=== PATIENT | male | born 1985 | race African-American/Black ===

== ENCOUNTER 2021-09-18 14:10 | Inpatient (IN) | payer SELFPAY ==
[~2021-09-18] VITALS: Ht 175 cm; Wt 149.9 kg
--- NOTE | 2021-09-18 14:52 | ED Dyspnea ---
General Stated Complaint: SOB,CP,HIGH HR Source of Information: Patient Exam Limitations: No Limitations (MARILYN BRAR) History of Present Illness Date Seen by Provider: Sep 18, 2021 Time Seen by Provider: 14:45 Initial Comments Patient is a 35yoM who presents with chief complaint of SOA, abdominal and scrotal swelling. Patient has no past medical history that he knows of but does not see doctors often. He believes he has sleep apnea as he has been told he stops breathing when sleeping. He has been feeling bad for about a week with shortness of breath but denies fever, chills, N/V, diarrhea, melena, hematuria, dysuria headache, sore throat and congestion. Patient has taken Mucinex, Ibuprofen and tried a stool softener which did not help abdominal fullness. Patient is a former smoker and smokes marijuana occasionally. On exam first two wrist BP readings seem unreliable 94/32 then 218/100s. He is tachypneic and O2 sat 96%. Timing/Duration: Constant Severity: Moderate Associated Symptoms: Edema (MARILYN BRAR) Allergies and Home Medications Allergies Coded Allergies: No Known Drug Allergies (Unverified , 09/18/21) Patient Home Medication List Home Medication List Reviewed: Yes (IVA PEREIRA MD) Review of Systems Review of Systems Constitutional: No chills, No diaphoresis, No dizziness, No fever, No malaise EENTM: No blurred vision, No nose congestion, No throat pain Respiratory: No cough; short of breath; No wheezing Cardiovascular: No chest pain; edema; No palpitations, No syncope Gastrointestinal: No abdominal pain, No diarrhea, No melena, No nausea, No vomiting Genitourinary: No dysuria, No frequency, No hematuria Musculoskeletal: No joint pain, No muscle pain Skin: no symptoms reported Psychiatric/Neurological: No Symptoms Reported Endocrine: No Symptoms Reported Hematologic/Lymphatic: No Symptoms Reported (MARILYN BRAR) Past Nfakszh-Kgiwfc-Jeyngv Hx Patient Social History Smoking Status: Former Smoker Substance use?: Yes Substance type: Marijuana Substance frequency: Once in a while Alcohol Use?: No (MARILYN BRAR) Physical Exam Vital Signs Vital Signs - First Documented 09/18/21 14:20 Temp 37.5 Pulse 127 Resp 18 B/P (MAP) 185/132 (149) O2 Delivery Room Air (IVA PEREIRA MD) Vital Signs Capillary Refill : (MARILYN BRAR STUDENT) Height, Weight, BMI Height: '" Weight: lbs. oz. 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0-12.2 fL Immature Granulocyte % (Auto) 1 % Neutrophils (%) (Auto) 75 42-75 % Lymphocytes (%) (Auto) 16 12-44 % Monocytes (%) (Auto) 8 0-12 % Eosinophils (%) (Auto) 0 0-10 % Basophils (%) (Auto) 0 0-10 % Neutrophils # (Auto) 10.9 H 1.8-7.8 X 10^3 Lymphocytes # (Auto) 2.3 1.0-4.0 X 10^3 Monocytes # (Auto) 1.1 H 0.0-1.0 X 10^3 Eosinophils # (Auto) 0.0 0.0-0.3 10^3/uL Basophils # (Auto) 0.0 0.0-0.1 10^3/uL Immature Granulocyte # (Auto) 0.1 0.0-0.1 10^3/uL Neutrophils % (Manual) 87 % Lymphocytes % (Manual) 8 % Monocytes % (Manual) 5 % Eosinophils % (Manual) 0 % Basophils % (Manual) 0 % Band Neutrophils 0 % Polychromasia SLIGHT Hypochromasia MODERATE Anisocytosis MARKED Microcytosis MODERATE Target Cells SLIGHT Prothrombin Time 16.3 H 12.2-14.7 SEC INR Comment 1.3 0.8-1.4 Activated Partial Thromboplast Time 30 24-35 SEC D-Dimer 2.87 H 0.00-0.49 UG/ML Sodium Level 142 135-145 MMOL/L Potassium Level 4.8 3.6-5.0 MMOL/L Chloride Level 107 98-107 MMOL/L Carbon Dioxide Level 19 L 21-32 MMOL/L Anion Gap 16 H 5-14 MMOL/L Blood Urea Nitrogen 28 H 7-18 MG/DL Creatinine 2.11 H 0.60-1.30 MG/DL Estimat Glomerular Filtration Rate 41 BUN/Creatinine Ratio 13 Glucose Level 101 70-105 MG/DL Calcium Level 9.4 8.5-10.1 MG/DL Corrected Calcium 9.7 8.5-10.1 MG/DL Total Bilirubin 0.8 0.1-1.0 MG/DL Aspartate Amino Transf (AST/SGOT) 275 H 5-34 U/L Alanine Aminotransferase (ALT/SGPT) 252 H 0-55 U/L Alkaline Phosphatase 122 40-136 U/L Total Creatine Kinase 391 H 30-200 U/L Troponin I 0.113 H <0.028 NG/ML B-Type Natriuretic Peptide 694.2 H <100.0 PG/ML Total Protein 7.2 6.4-8.2 GM/DL Albumin 3.6 3.2-4.5 GM/DL Procalcitonin 0.40 H <0.10 NG/ML Glucometer 82 70-110 MG/DL (IVA PEREIRA MD) My Orders Orders - IVA PEREIRA MD Ed Iv/Invasive Line Start (09/18/21 15:00) Cbc With Automated Diff (09/18/21 15:00) Comprehensive Metabolic Panel (09/18/21 15:00) Ekg Tracing (09/18/21 15:00) Ua Culture If Indicated (09/18/21 15:00) Bnp Иван (09/18/21 15:00) Troponin I Иван (09/18/21 15:00) Creatine Kinase (09/18/21 15:00) Chest Pa/Lat (2 View) (09/18/21 15:00) Accucheck Stat ONCE (09/18/21 15:00) Manual Differential (09/18/21 14:35) Nitroglycerin Ointment (Nitrobid Ointme (09/18/21 15:30) Aspirin Chewable Tablet (Baby Aspirin Ch (09/18/21 16:00) Protime With Inr (09/18/21 16:06) Partial Thromboplastin Time (09/18/21 16:06) Fibrin Degradation Products (09/18/21 16:06) Ns (Ivpb) (Sodium C... W/Nicardipine Iv (09/18/21 16:15) Enoxaparin Injection (Lovenox Injectio (09/18/21 16:15) (IVA PEREIRA MD) Medications Given in ED (IVA PEREIRA MD) Vital Signs/I&O 09/18/21 14:20 Temp 37.5 Pulse 127 Resp 18 B/P (MAP) 185/132 (149) O2 Delivery Room Air (IVA PEREIRA MD) Progress Progress Note : Time: 16:34 Progress Note 35-year-old obese -[place] male presents with a chief complaint of shortness of breath, swelling over the last week and a half. Patient is basically undoctored. He cannot recall the last time he saw physician, potentially 3 years ago. No prior diagnoses. Denies chest pain, fever, congestion. States he has been having significant amount of difficulty sleeping secondary to his worsening shortness of breath. Became more concerned over the last 24 hours as he has experienced a significant amount of scrotal swelling. States he still able to urinate. Denies headache, diarrhea. Former smoker. Tells me that his girlfriend thinks that he has sleep apnea as she will wake him up frequently when he "stops breathing" at night. Physical exam remarkable for morbid obesity, pitting edema that is generalized, massive scrotal swelling. Somewhat labored breathing. Significant hypertension on a wrist cuff on the left arm 180s over 130s tachycardia in the high 120s; normal oxygen saturations. Heart is regular, lungs are clear although diminished. Nontender abdomen 3+ edema in the bilateral lower extremities. Patient is noted to have acute kidney injury with a serum creatinine of 2.1. El evated troponin, elevated BNP. Chest x-ray shows cardiomegaly without overt pulmonary edema. 1 inch of Nitropaste was placed to the chest wall. Case is discussed with Dr. Burrows on for the hospitalist service. Recommends 40 mg of Lasix, Cardene drip, echo in the morning. I also discussed the case with Dr. Reyes who recommends Lovenox weight-based dosing twice daily daily aspirin adding a D-dimer. Will admit to ICU on a Cardene drip, titrate to systolic blood pressure of 140. (IVA PEREIRA MD) Initial ECG Impression Date: Sep 18, 2021 Initial ECG Impression Time: 15:34 Initial ECG Rhythm: S.Tach Initial ECG Impression: Nonspecific Changes Initial ECG Comparisson: No Previous ECG Available (IVA PEREIRA MD) Diagnostic Imaging Diagonstic Imaging: Xray Plain Films/CT/US/NM/MRI: chest Comments [facility]. [place], [place] NAME: CLAYTON MCKEON [facility] REC#: [id number] PT STATUS: REG ER : 1985 PHYSICIAN: VIA PEREIRA MD ADMIT DATE: 09/18/21/ER Signed Date of Exam:09/18/21 CHEST PA/LAT (2 VIEW) INDICATION: Shortness of breath and leg swelling. PA and lateral chest obtained at 3:50 p.m. FINDINGS: There is prominent cardiomegaly. Mediastinal silhouette is unremarkable. There is central vascular congestion. There is no pneumothorax or pleural fluid or focal infiltrate. IMPRESSION: Cardiomegaly and central vascular congestion. No focal infiltrate or pleural fluid. Dictated by: Dictated on workstation # [id number] Dict: 09/18/21 1600 Trans: 09/18/21 1627 [id number] Interpreted by: NADEEN SOGN MD Electronically signed by: NADEEN SONG MD 09/18/21 1627 (IVA PEREIRA MD) Critical Care Note Critical Care Start Time: 14:45 Stop Time: 16:37 Total Time (minutes) 30 minutes critical care time in the evaluation and management of this 35-year-old gentleman with hypertensive emergency. Time involved includes initial evaluation, review and interpretation of laboratory studies, EKG and chest x-ray. Discussion with hospitalist and cardiology services. Management of hypertension. (IVA PEREIRA MD) Departure Communication (Admissions) Time/Spoke to Admitting Phy: 15:[address] Burrows Time/Spoke to Consulting Phy: 16:[address] Reyes (IVA PEREIRA MD) Impression Primary Impression: Hypertensive emergency Additional Impressions: Acute kidney injury Elevated troponin Anasarca Morbid obesity Disposition: ADMITTED INPATIENT Condition: Critical Admissions Decision to Admit Reason: Admit from ER (General) Decision to Admit/Date: Sep 18, 2021 Time/Decision to Admit Time: 16:33 (IVA PEREIRA MD) Departure-Patient Inst. Referrals: NO,LOCAL PHYSICIAN (PCP/Family) Primary Care Physician Verification and Attestation of Medical Student E/M Service A medical student performed and documented this service in my presence. I reviewed and verified all information documented by the medical student and made modifications to such information, when appropriate. I personally performed the physical exam and medical decision making. Iva Pereira, Sep 19, 2021,06:53 (IVA PEREIRA MD) MARILYN BRAR MED STUDENT Sep 18, 2021 14:52 IVA PEREIRA MD Sep 18, 2021 15:00
[2021-09-18 15:17] LABS: BASOPHILS % (AUTO) 0 % (0-10); EOSINOPHILS % (AUTO) 0 % (0-10); HEMATOCRIT 43 % (40-54); HEMOGLOBIN 12.8 g/dL (13.3-17.7); LYMPHOCYTES # (AUTO) 2.3 X 10^3 (1.0-4.0); LYMPHOCYTES % (AUTO) 16 % (12-44); MEAN CORPUSCULAR HEMOGLOBIN 21 pg (25-34); MEAN CORPUSCULAR HGB CONC 30 g/dL (32-36); MEAN CORPUSCULAR VOLUME 69 fL (80-99); MEAN PLATELET VOLUME 9.7 fL (9.0-12.2); MONOCYTES # (AUTO) 1.1 X 10^3 (0.0-1.0); MONOCYTES % (AUTO) 8 % (0-12); NEUTROPHILS # (AUTO) 10.9 X 10^3 (1.8-7.8); NEUTROPHILS % (AUTO) 75 % (42-75); PLATELET COUNT 580 10^3/uL (130-400); WHITE BLOOD COUNT 14.4 10^3/uL (4.3-11.0)
[2021-09-18 15:20] LABS: ALBUMIN 3.6 GM/DL (3.2-4.5); POTASSIUM 4.8 MMOL/L (3.6-5.0)
[2021-09-18 15:21] LABS: CALCIUM 9.4 MG/DL (8.5-10.1)
[2021-09-18 15:22] LABS: TOTAL PROTEIN 7.2 GM/DL (6.4-8.2)
[2021-09-18 15:24] LABS: BILIRUBIN,TOTAL 0.8 MG/DL (0.1-1.0)
[2021-09-18 15:26] LABS: CREATININE SERUM 2.11 MG/DL (0.60-1.30)
[2021-09-18] MEDS ORDERED: NITROGLYCERIN 2% OINT 1 GM UNIT DOSE PACKET TOP ONE (15:30)
[2021-09-18 15:37] LABS: ANISOCYTOSIS MARKED; BAND NEUTROPHILS 0 %; BASOPHILS % (MANUAL) 0 %; EOSINOPHILS % (MANUAL) 0 %; HYPOCHROMASIA MODERATE; LYMPHOCYTES % (MANUAL) 8 %; MICROCYTOSIS MODERATE; MONOCYTES % (MANUAL) 5 %; NEUTROPHILS % (MANUAL) 87 %; POLYCHROMASIA SLIGHT; TARGET CELLS SLIGHT
[2021-09-18] MEDS ORDERED: ASPIRIN 81 MG CHEW (CHILDREN'S ASA) PO ONE (16:00)
--- NOTE | 2021-09-18 16:03 | Diagnostic Imaging Report ---
INDICATION: Shortness of breath and leg swelling. PA and lateral chest obtained at 3:50 p.m. FINDINGS: There is prominent cardiomegaly. Mediastinal silhouette is unremarkable. There is central vascular congestion. There is no pneumothorax or pleural fluid or focal infiltrate. IMPRESSION: Cardiomegaly and central vascular congestion. No focal infiltrate or pleural fluid. Dictated by: Dictated on workstation # [id number]
[2021-09-18] MEDS ORDERED: niCARdipine IV 50 MG in NS (IVPB) 230 ML IV SCH (16:15)
[2021-09-18] MEDS ORDERED: ENOXAPARIN 60 MG/0.6 ML (LOVENOX) SYR SC ONE (16:15)
[2021-09-18 16:23] LABS: FIBRIN DEGRADATION PRODUCTS 2.87 UG/ML (0.00-0.49); INR 1.3 (0.8-1.4); PROTHROMBIN TIME PATIENT 16.3 SEC (12.2-14.7)
[2021-09-18] MEDS ORDERED: FUROSEMIDE 40 MG/4 ML INJ (LASIX) IVP ONE (16:45)
[2021-09-18 17:31] LABS: BILIRUBIN,URINE NEGATIVE (NEGATIVE); CLARITY,URINE CLEAR; COLOR,URINE YELLOW; GLUCOSE, URINE (UA) NEGATIVE (NEGATIVE); KETONES,URINE NEGATIVE (NEGATIVE); LEUKOCYTE ESTERASE ,URINE NEGATIVE (NEGATIVE); NITRITE,URINE NEGATIVE (NEGATIVE); PROTEIN,URINE 2+ (NEGATIVE)
[2021-09-18 17:51] LABS: BACTERIA,URINE NEGATIVE /HPF; HYALINE CASTS, URINE 0-2 /LPF; RBC,URINE 0-2 /HPF; SQUAMOUS EPITHELIAL CELL,UR 0-2 /HPF
--- NOTE | 2021-09-18 18:41 | Tele-ICU Consult ---
History of Present Illness History of Present Illness Date Seen by Provider: Sep 18, 2021 Time Seen by Provider: 18:41 Date of Admission Allergies and Home Medications Allergies Coded Allergies: No Known Drug Allergies (Unverified , 09/18/21) Past Medical/Social/Family Hx Patient Social History Tobacco Use?: No Smoking Status: Former Smoker Smokeless Tobacco Frequency: Never a User Use of E-Cig and/or Vaping dev: No E-Cig and/or Vaping Freq: Never a User Substance use?: Yes Substance type: Marijuana Substance frequency: Once in a while Alcohol Use?: No Pt stated abuse/neglect: No Immunizations Up To Date Influenza Vaccine Up-to-Date: No; Not Current Tetanus Booster (TDap): Unknown Current Status Advance Directives: No Communicates: Does Not Communicate Primary Language: Polish Preferred Spoken Language: Polish Is interpretation needed?: No Implanted or Applied Medical D: None Review of Systems Constitutional: see HPI Focused Exam Height, Weight, BMI Height: '" Weight: lbs. oz. kg; 56.16 BMI Method: Exam Exam Patient acknowledged, consented, and participated in this virtual visit which was conducted using real time audio/video Vital Signs Date Time Temp Pulse Resp B/P (MAP) Pulse Ox O2 Delivery O2 Flow Rate FiO2 09/18/21 18:15 121 46 205/137 95 Room Air 09/18/21 18:00 118 9 174/149 98 Room Air 09/18/21 17:46 99 Room Air 09/18/21 17:45 121 09/18/21 17:45 121 25 157/108 95 Room Air 09/18/21 17:30 122 18 192/121 98 Room Air 09/18/21 14:20 37.5 127 18 185/132 (149) Room Air Height & Weight Height: '" Weight: lbs. oz. 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 ROS as per chart and RN report Now in ICU, hemodynamically stable Video assessment done using teleICU camera, rest of exam as per RN Discussed with RN. Consultants: linda Hospital course: - adnitted with scrotal edema , anasarca A/P CHUY, Cr 2.1 - voiding , good UO -lasix given - follow HTN - cardene gtt - ECHO pending Elev d-dimer - check US LE - lovenoc full dose given scrotal swelling - as per RN exam - no cellulitis, WBC 14 - check PCT Elevated LFT - ? liver congestion Lines : (Central Line Necessity Reviewed) Will: OG: Nutrition: Analgesia: Anxiety/ delirium VTE Prophylaxis: juan carlos full dose Stress Ulcer Prophylaxis: Plans in collaboration with bedside consultants and IM MDs. Discussed with RN to reach out if any questions or concerns A total of 31 minutes of critical care time was devoted to this patient today, required to treat and/or prevent further deterioration of critical care condition ( as above ) THOMAS FERRARI MD Sep 18, 2021 18:41
[2021-09-18 18:42] LABS: BILIRUBIN,URINE NEGATIVE (NEGATIVE); CLARITY,URINE CLEAR; COLOR,URINE YELLOW; GLUCOSE, URINE (UA) NEGATIVE (NEGATIVE); KETONES,URINE NEGATIVE (NEGATIVE); LEUKOCYTE ESTERASE ,URINE NEGATIVE (NEGATIVE); NITRITE,URINE NEGATIVE (NEGATIVE); PH,URINE 5.5 (5-9); PROTEIN,URINE TRACE (NEGATIVE)
[2021-09-18 18:51] LABS: BACTERIA,URINE NEGATIVE /HPF; RBC,URINE RARE /HPF; SQUAMOUS EPITHELIAL CELL,UR RARE /HPF
[2021-09-18] MEDS: niCARdipine 50 MG/NS 250 ML IV DRIP IV SCH ×6 (18:52→22:28)
[2021-09-18 18:57] LABS: AMPHETAMINE SCREEN, URINE NEGATIVE (NEGATIVE); BARBITURATE SCREEN URINE NEGATIVE (NEGATIVE); BENZODIAZEPINES SCREEN URINE NEGATIVE (NEGATIVE); CANNABINOID SCREEN, URINE NEGATIVE (NEGATIVE); COCAINE SCREEN URINE NEGATIVE (NEGATIVE); METHADONE STAT NEGATIVE (NEGATIVE); METHAMPHETAMINE SCREEN URINE S POSITIVE (NEGATIVE); OPIATE SCREEN URINE NEGATIVE (NEGATIVE); OXYCODONE STAT NEGATIVE (NEGATIVE); PROPOXYPHENE STAT NEGATIVE (NEGATIVE); TRICYCLIC ANTIDEPRESSANTS SCRE NEGATIVE (NEGATIVE)
[2021-09-18] MEDS ORDERED: RT-ALBUTEROL SULF 2.5 MG/3 ML PRE-MIX VIAL INH PRN (20:00)
[2021-09-19] MEDS ORDERED: niCARdipine IV FOR DRIP 50 MG KIT ONE (01:57)
[2021-09-19] MEDS ORDERED: NS (IVPB) 250 ML ONE (02:00)
[2021-09-19] MEDS: niCARdipine 50 MG/NS 250 ML IV DRIP IV SCH ×4 (02:33→11:31)
[2021-09-19] MEDS: ENOXAPARIN 150 MG/ML (LOVENOX) SYR SQ SCH ×2 (04:29→18:17)
[2021-09-19] MEDS: POTASSIUM CL 10MEQ/50ML IVPB 50 ML IV SCH (06:00)
[2021-09-19] MEDS: MAGNESIUM 1 GM/100 ML IVPB 100 ML IV SCH (06:00)
[2021-09-19] MEDS: KCL 20 MEQ TAB (K-DUR) PO SCH (06:00)
[2021-09-19 06:35] LABS: BASOPHILS # (AUTO) 0.1 10^3/uL (0.0-0.1); BASOPHILS % (AUTO) 1 % (0-10); EOSINOPHILS # (AUTO) 0.1 10^3/uL (0.0-0.3); EOSINOPHILS % (AUTO) 1 % (0-10); HEMATOCRIT 39 % (40-54); HEMOGLOBIN 11.6 g/dL (13.3-17.7); LYMPHOCYTES # (AUTO) 1.9 10^3/uL (1.0-4.0); LYMPHOCYTES % (AUTO) 14 % (12-44); MEAN CORPUSCULAR HEMOGLOBIN 20 pg (25-34); MEAN CORPUSCULAR HGB CONC 30 g/dL (32-36); MEAN CORPUSCULAR VOLUME 68 fL (80-99); MEAN PLATELET VOLUME 9.8 fL (9.0-12.2); MONOCYTES # (AUTO) 1.5 10^3/uL (0.0-1.0); MONOCYTES % (AUTO) 10 % (0-12); NEUTROPHILS # (AUTO) 10.4 10^3/uL (1.8-7.8); NEUTROPHILS % (AUTO) 74 % (42-75); PLATELET COUNT 563 10^3/uL (130-400); WHITE BLOOD COUNT 14.1 10^3/uL (4.3-11.0)
[2021-09-19 06:57] LABS: ALBUMIN 3.3 GM/DL (3.2-4.5); BILIRUBIN,TOTAL 0.6 MG/DL (0.1-1.0); CALCIUM 8.9 MG/DL (8.5-10.1); CREATININE SERUM 2.45 MG/DL (0.60-1.30); PHOSPHORUS 4.6 MG/DL (2.3-4.7); POTASSIUM 4.9 MMOL/L (3.6-5.0); TOTAL PROTEIN 6.6 GM/DL (6.4-8.2)
[2021-09-19] MEDS ORDERED: hydrALAZINE (APESOLINE) 20 MG/ML VIAL IV PRN (08:15)
[2021-09-19 08:41] LABS: ABG BASE EXCESS -1.7 MMOL/L (-2.5-2.5); ABG OXYGEN SATURATION 90 % (94-100); ABG PCO2 59 MMHG (35-45); ABG PO2 62 MMHG (79-93); ABG TCO2 26.8 MMOL/L (21.0-31.0)
[2021-09-19 08:42] LABS: ABG PH 7.24 (7.37-7.43); ALLENS TEST POSITIVE; INSPIRED O2 7 L; PATIENT TEMP 36; VENTILATOR NO
[2021-09-19] MEDS ORDERED: amLODIPine 5 MG (NORVASC) TAB PO SCH (09:00)
[2021-09-19 09:07] VITALS: BP 127/70
--- NOTE | 2021-09-19 09:39 | Consultation-Cardiology ---
HPI-Cardiology Cardiology Consultation: Date of Consultation 09/19/2021 Date of Admission 09/18/2021 Attending Physician Analia Burrows MD Admitting Physician No,Local Physician Consulting Physician JAH CANNON JR, MD HPI: Time Seen by a Provider: 09:34 Chief Complaint: Reason for consultation: Hypertensive emergency and abnormal troponin level. I had the pleasure of seeing Quan in the intensive care unit at [facility] in [place], [place] this morning. According to him, he has no significant past medical history other than morbid obesity and does not take any pres cription medications at home. Over the past several days, he has noticed increasing dyspnea on exertion as well as peripheral edema. Due to ongoing and worsening symptoms, he had his girlfriend bring him to the emergency room yesterday. He was found to have a markedly elevated blood pressure and was started on intravenous nicardipine infusion. During his evaluation, he was also found to have acute kidney injury and elevated troponin levels and a cardiology consultation was requested. When I saw the patient, he was breathing comfortably on BiPAP. He states that his breathing is starting to feel better but he still has persistent edema. He denies chest discomfort, paroxysmal nocturnal dyspnea, orthopnea, palpitations, lightheadedness, or syncope. Certain portions of this document may have been dictated utilizing voice recognition technology. Inherent to this technology, typographical and grammatical errors may exist. As much as I am diligent to identify and correct these mistakes, some errors may remain in the document. Review of Systems-Cardiology Review of Systems Other comments Review of 10 organ systems is as per the history of present illness, otherwise negative. [id number] Hx Patient Social History Smoking Status: Former Smoker Have you traveled recently?: No Alcohol Use?: No Substance type: Marijuana Pt feels they are or have been: No Past Medical History PMH As described under Assessment. Family Medical History Family Medical History: The patient does not know of any family history of premature coronary artery disease in first-degree relatives. He believes diabetes runs in his family. Allergies and Home Medications Allergies Coded Allergies: No Known Drug Allergies (Unverified , 09/18/21) Patient Home Medication List Home Medication List Reviewed: Yes Exam Vital Signs Vital Signs Date Time Temp Pulse Resp B/P (MAP) Pulse Ox O2 Delivery O2 Flow Rate FiO2 09/19/21 15:00 99 34 87/61 94 NIV Bilevel 45.00 09/19/21 12:00 45 09/19/21 04:00 36.3 Physical Exam General: Alert. No acute distress. He is on BiPAP. Well nourished and appears stated age. He is morbidly obese. Eye: Extraocular movements are intact. Conjunctivae are clear. There are no xanthelasma. HENT: Normocephalic. Atraumatic. Carotid pulsations 2/2 without bruits. Neck: Jugular venous pressure does not appear elevated. No thyromegaly appreciated. Respiratory: Lungs have some upper airway sounds due to BiPAP. Respirations are non-labored. Breath sounds are equal. Symmetrical chest wall expansion. Cardiovascular: Normal rate. Regular rhythm. No murmur. No gallop. Point of maximal impulse is not appear displaced. Good pulses equal in all extremities. 3+ bilateral pretibial edema. Gastrointestinal: Soft. Normal bowel sounds. Skin: Skin turgor is normal. There is no pallor. Musculoskeletal: No kyphosis or scoliosis appreciated. Neurologic: Alert and oriented to person, place, time. Cranial nerves 3-12 appear grossly intact. The patient has good motor tone strength in the upper and lower extremities bilaterally. Psychiatric: Cooperative. Appropriate mood & affect. Labs Laboratory Tests Test 09/18/21 15:46 09/18/21 17:26 09/18/21 18:20 09/18/21 21:04 Range/Units Glucometer 82 70-110 MG/DL Urine Color YELLOW YELLOW Urine Clarity CLEAR CLEAR Urine pH 6.0 5.5 5-9 Urine Specific Hardy >=1.030 1.010 L 1.016-1.022 Urine Protein 2+ H TRACE H NEGATIVE Urine Glucose (UA) NEGATIVE NEGATIVE NEGATIVE Urine Ketones NEGATIVE NEGATIVE NEGATIVE Urine Nitrite NEGATIVE NEGATIVE NEGATIVE Urine Bilirubin NEGATIVE NEGATIVE NEGATIVE Urine Urobilinogen 0.2 0.2 < = 1.0 MG/DL Urine Leukocyte Esterase NEGATIVE NEGATIVE NEGATIVE Urine RBC (Auto) 1+ H TRACE-I H NEGATIVE Urine RBC 0-2 RARE /HPF Urine WBC NONE NONE /HPF Urine Squamous Epithelial Cells 0-2 RARE /HPF Urine Crystals NONE NONE /LPF Urine Bacteria NEGATIVE NEGATIVE /HPF Urine Casts PRESENT NONE /LPF Urine Hyaline Casts 0-2 H /LPF Urine Mucus NEGATIVE NEGATIVE /LPF Urine Culture Indicated NO NO Urine Opiates Screen NEGATIVE NEGATIVE Urine Oxycodone Screen NEGATIVE NEGATIVE Urine Methadone Screen NEGATIVE NEGATIVE Urine Propoxyphene Screen NEGATIVE NEGATIVE Urine Barbiturates Screen NEGATIVE NEGATIVE Ur Tricyclic Antidepressants Screen NEGATIVE NEGATIVE Urine Phencyclidine Screen NEGATIVE NEGATIVE Urine Amphetamines Screen NEGATIVE NEGATIVE Urine Methamphetamines Screen POSITIVE H NEGATIVE Urine Benzodiazepines Screen NEGATIVE NEGATIVE Urine Cocaine Screen NEGATIVE NEGATIVE Urine Cannabinoids Screen NEGATIVE NEGATIVE Troponin I 0.186 H <0.028 NG/ML Test 09/19/21 06:20 09/19/21 08:30 09/19/21 12:55 Range/Units White Blood Count 14.1 H 4.3-11.0 10^3/uL Red Blood Count 5.69 H 4.30-5.52 10^6/uL Hemoglobin 11.6 L 13.3-17.7 g/dL Hematocrit 39 L 40-54 % Mean Corpuscular Volume 68 L 80-99 fL Mean Corpuscular Hemoglobin 20 L 25-34 pg Mean Corpuscular Hemoglobin Concent 30 L 32-36 g/dL Red Cell Distribution Width 17.2 H 10.0-14.5 % Platelet Count 563 H 130-400 10^3/uL Mean Platelet Volume 9.8 9.0-12.2 fL Immature Granulocyte % (Auto) 1 % Neutrophils (%) (Auto) 74 42-75 % Lymphocytes (%) (Auto) 14 12-44 % Monocytes (%) (Auto) 10 0-12 % Eosinophils (%) (Auto) 1 0-10 % Basophils (%) (Auto) 1 0-10 % Neutrophils # (Auto) 10.4 H 1.8-7.8 10^3/uL Lymphocytes # (Auto) 1.9 1.0-4.0 10^3/uL Monocytes # (Auto) 1.5 H 0.0-1.0 10^3/uL Eosinophils # (Auto) 0.1 0.0-0.3 10^3/uL Basophils # (Auto) 0.1 0.0-0.1 10^3/uL Immature Granulocyte # (Auto) 0.1 0.0-0.1 10^3/uL Sodium Level 139 135-145 MMOL/L Potassium Level 4.9 3.6-5.0 MMOL/L Chloride Level 108 H 98-107 MMOL/L Carbon Dioxide Level 21 21-32 MMOL/L Anion Gap 10 5-14 MMOL/L Blood Urea Nitrogen 33 H 7-18 MG/DL Creatinine 2.45 H 0.60-1.30 MG/DL Estimat Glomerular Filtration Rate 34 BUN/Creatinine Ratio 13 Glucose Level 147 H 70-105 MG/DL Calcium Level 8.9 8.5-10.1 MG/DL Corrected Calcium 9.5 8.5-10.1 MG/DL Phosphorus Level 4.6 2.3-4.7 MG/DL Magnesium Level 2.0 1.6-2.4 MG/DL Total Bilirubin 0.6 0.1-1.0 MG/DL Aspartate Amino Transf (AST/SGOT) 183 H 5-34 U/L Alanine Aminotransferase (ALT/SGPT) 247 H 0-55 U/L Alkaline Phosphatase 114 40-136 U/L Troponin I 0.200 H <0.028 NG/ML Total Protein 6.6 6.4-8.2 GM/DL Albumin 3.3 3.2-4.5 GM/DL Triglycerides Level 83 <150 MG/DL Cholesterol Level 133 < 200 MG/DL LDL Cholesterol Direct 95 1-129 MG/DL VLDL Cholesterol 17 5-40 MG/DL HDL Cholesterol 27 L 40-60 MG/DL Blood Gas Puncture Site RIGHT RADIAL Blood Gas Patient Temperature 36 Arterial Blood pH 7.24 *L 7.37-7.43 Arterial Blood Partial Pressure CO2 59 H 35-45 MMHG Arterial Blood Partial Pressure O2 62 L 79-93 MMHG Arterial Blood HCO3 25 23-27 MMOL/L Arterial Blood Total CO2 26.8 21.0-31.0 MMOL/L Arterial Blood Oxygen Saturation 90 L 94-100 % Arterial Blood Base Excess -1.7 -2.5-2.5 MMOL/L Onel Test POSITIVE Blood Gas Ventilator Setting NO Blood Gas Inspired Oxygen 7 L Influenza Type A (RT-PCR) Not Detected Not Detecte Influenza Type B (RT-PCR) Not Detected Not Detecte SARS-CoV-2 RNA (RT-PCR) Not Detected Not Detecte Radiology ECHOCARDIOGRAM (09/19/2021): 1. This is a technically difficult study due to poor image quality secondary to patient's body habitus. Intravenous contrast was administered to enhance image quality. 2. Left ventricle: The cavity size is normal. There is mild concentric hypertrophy. Systolic function is severely reduced. The estimated ejection fraction is 20-25%. There is global hypokinesis. Left ventricular diastolic function parameters are normal. 3. Right atrium: The right atrium is mildly dilated with an area of 23 cm. 4. Inferior vena cava: The vessel is dilated. The respirophasic diameter changes are blunted (less than 50%). These findings are consistent with markedly elevated right atrial pressure (15 mmHg). 5. Pulmonary arteries: The estimated pulmonary artery systolic pressure is 37 mmHg assuming a right atrial pressure of 15 mmHg. ECG Impression ECG Comment Electrocardiogram from 09/18 shows sinus tachycardia at 120 bpm with left atrial abnormality, poor R wave progression and nonspecific T wave changes. Diagnosis/Problems Diagnosis/Problems (1) Hypertensive emergency Status: Acute Assessment & Plan: He had markedly elevated blood pressures with evidence of acute heart failure. His blood pressures have improved with nicardipine infusion. We will attempt to transition this over to oral medication. He had been written for amlodipine but given the newly discovered severe left ventricular systolic dysfunction, I recommend he be on beta-augusto with the combination of hydralazine and nitrates. Hopefully, we can get him off BiPAP long enough to swallow pills. He is not a good candidate for any medication that could further impair his renal function such as NORRIS inhibitor, ARB, or aldosterone antagonists. (2) Elevated troponin Assessment & Plan: This was probably a type II non-ST elevation myocardial infarction due to supply/demand mismatch related to the hypertensive emergency on top of heart failure. (3) Cardiomyopathy Assessment & Plan: His echocardiogram shows severe left ventricular systolic dysfunction with an estimated ejection fraction of 20-25%. Exact etiology unclear. He has been ordered for carvedilol. As above, I will stop the amlodipine which was ordered and change this over to hydralazine and nitrates. He is not a good candidate for NORRIS inhibitor, ARB, or aldosterone antagonist due to his acute kidney injury. We can reassess if his renal function improves. At some point, we may need to consider further evaluation with a cardiac catheterization to exclude coronary artery disease as a possible etiology of the cardiomyopathy. However, we need to wait for his renal function to improve before giving him intravenous contrast. (4) Acute HFrEF (heart failure with reduced ejection fraction) Assessment & Plan: His chest x-ray showed pulmonary congestion and he is short of breath. He was given 1 dose of intravenous furosemide in the emergency room. I will give him another dose of intravenous furosemide this morning. We will need to be cautious with diuretics due to his acute kidney injury. I have also made adjustments to the antihypertensive regimen as outlined above. (5) Acute kidney injury Status: Acute Assessment & Plan: This will need to be monitored closely. We do not know his baseline renal function because he does not normally go to doctors. (6) Morbid obesity Status: Acute Assessment & Plan: He needs to work on weight loss. If he cannot lose a significant amount of weight over the next 6-12 months, I would consider refe rring him for bariatric consultation at that time. JAH CANNON JR, MD Sep 19, 2021 09:39
[2021-09-19] MEDS ORDERED: FUROSEMIDE 40 MG/4 ML INJ (LASIX) IVP ONE (09:45)
[2021-09-19] MEDS ORDERED: ISOSORBIDE MONONITRATE 60 MG (IMDUR) TAB PO ONE (09:45)
--- NOTE | 2021-09-19 10:23 | Tele-ICU Progress Note ---
Subjective Date Seen by a Provider: Sep 19, 2021 Time Seen by a Provider: 10:23 Sepsis Event Evaluation Height, Weight, BMI Height: '" Weight: lbs. oz. kg; 56.16 BMI Method: Exam Exam Patient acknowledged, consented, and participated in this virtual visit which was conducted using real time audio/video Vital Signs Date Time Temp Pulse Resp B/P (MAP) Pulse Ox O2 Delivery O2 Flow Rate FiO2 09/19/21 10:00 103 34 127/89 95 Nasal Cannula 6.00 09/19/21 09:07 103 40 100 45.00 09/19/21 09:00 100 23 127/70 100 Nasal Cannula 6.00 09/19/21 08:00 98 33 121/75 91 Nasal Cannula 6.00 09/19/21 07:00 96 09/19/21 07:00 108 44 108/51 96 Nasal Cannula 6.00 09/19/21 06:45 115 145/80 91 Nasal Cannula 6.00 09/19/21 05:15 112 35 139/72 98 Nasal Cannula 6.00 09/19/21 04:00 98 33 157/88 95 Nasal Cannula 6.00 09/19/21 04:00 36.3 09/19/21 04:00 96 Nasal Cannula 6.00 09/19/21 03:00 111 36 120/68 92 Nasal Cannula 6.00 09/19/21 02:30 113 15 122/72 95 Nasal Cannula 6.00 09/19/21 01:00 103 141/74 94 Nasal Cannula 6.00 09/19/21 01:00 103 09/19/21 00:00 36.5 09/19/21 00:00 114 148/85 95 Nasal Cannula 6.00 09/18/21 23:59 96 Nasal Cannula 6.00 09/18/21 23:00 117 33 161/98 89 Nasal Cannula 6.00 09/18/21 22:40 Nasal Cannula 6.00 09/18/21 22:34 100 Nasal Cannula 7.00 09/18/21 22:30 114 17 148/99 99 Nasal Cannula 4.00 09/18/21 22:00 112 39 186/80 100 Nasal Cannula 2.00 09/18/21 21:12 Nasal Cannula 2.00 09/18/21 21:00 113 38 168/97 93 Room Air 09/18/21 20:00 109 185/139 92 Room Air 09/18/21 20:00 95 Room Air 09/18/21 19:45 124 34 180/140 94 Room Air 09/18/21 19:30 106 182/140 97 Room Air 09/18/21 19:15 121 29 187/146 94 Room Air 09/18/21 19:00 116 09/18/21 19:00 116 15 178/125 94 Room Air 09/18/21 18:15 121 46 205/137 95 Room Air 09/18/21 18:00 118 9 174/149 98 Room Air 09/18/21 17:46 99 Room Air 09/18/21 17:45 121 09/18/21 17:45 121 25 157/108 95 Room Air 09/18/21 17:30 122 18 192/121 98 Room Air 09/18/21 14:20 37.5 127 18 185/132 (149) Room Air I & O 09/19/21 07:00 Intake Total 800 ml Output Total 1500 ml Balance -700 ml Height & Weight Height: '" Weight: lbs. oz. kg; 56.16 BMI Method: General Appearance: No Apparent Distress, Obese HEENT: PERRL/EOMI, Pharynx Normal, Moist Mucous Membranes Neck: Full Range of Motion, Normal Inspection, Non Tender, Supple Respiratory: Chest Non Tender, No Accessory Muscle Use, No Respiratory Distress, Decreased Breath Sounds Cardiovascular: No JVD, Normal Peripheral Pulses, Tachycardia Capillary Refill: Less Than 3 Seconds Extremity: Non Tender, Pedal Edema, Swelling Neurologic/Psychiatric: Alert, Oriented x3, No Motor/Sensory Deficits, Normal Mood/Affect, accountant systems II-XII Norm as Tested Skin: Normal Color, Warm/Dry Lymphatic: No Adenopathy Results Lab Laboratory Tests 09/18/21 14:35 09/19/21 06:20 Assessment/Plan Assessment/Plan Tele-ICU Physician , Progress Note ) Available chart/ vitals / labs / Images reviewed Video assessment done using teleICU camera, rest of exam as per RN Discussed with RN , EXAM PER RN Events overnight : Afebrile FiO2 - I/O = Drips: nicardipine Pressors: , hemodynamically stable Consultants: linda Hospital course: - adnitted with scrotal edema , anasarca 09/19 - TITO - > BIPAP A/P Acute hypercarbic resp failure - inderlying TITO / [facility] - Bipap , follow abg , need outpatient sleep study and NIPPV CHUY, Cr 2.1-> wortsenign with diuresis to 2.4 09/19 - voiding , good UO -lasix given - follow HTN - cardene gtt Cardiomyopathy - ECHO 09/18 - EF 20-25% -w/up and meds as per cardiology Elev d-dimer - check US LE - lovenox full dose given scrotal swelling - as per RN exam - no cellulitis, WBC 14 , PCT 0.4 -- PER BEDSIDE MD Elevated LFT - ? liver congestion Positive for methamphetamine - Lines : (Central Line Necessity Reviewed) Will: OG: Nutrition: Analgesia: Anxiety/ delirium VTE Prophylaxis: juan carlos full dose Stress Ulcer Prophylaxis: Plans in collaboration with bedside consultants and IM MDs. Discussed with RN to reach out if any questions or concerns A total of 31 minutes of critical care time was devoted to this patient today, required to treat and/or prevent further deterioration of critical care condition ( as above ) THOMAS FERRARI MD Sep 19, 2021 10:23
--- NOTE | 2021-09-19 11:17 | Diagnostic Imaging Report ---
PROCEDURE: US Venous Lower Ext Dorian. INDICATION: Lower extremity edema. TECHNIQUE: Multiple real-time grayscale images were obtained over the lower extremities in various projections, bilaterally. Additional duplex Doppler and color Doppler images were also obtained. CORRELATION STUDY: None FINDINGS: Color and grayscale sonographic images demonstrate no intraluminal defect within the visualized portion of the common femoral, superficial femoral and/or popliteal veins to suggest thrombus formation. These vessels demonstrate normal response to compression and augmentation. No soft tissue fluid collection. IMPRESSION: 1. Negative for deep venous thrombosis of either leg. Dictated by: Dictated on workstation # [id number]
--- NOTE | 2021-09-19 11:49 | Consultation - Surgery ---
History of Present Illness History of Present Illness Patient Consulted On(maciel/time) 09/19/21 11:43 Time Seen by Provider: 08:55 History of Present Illness Surgery asked to consult regarding Venous Insufficiency. HPI per Cardiology: I had the pleasure of seeing Quan in the intensive care unit at [facility] in [place], [place] this morning. According to him, he has no significant past medical history other than morbid obesity and does not take any prescription medications at home. Over the past several days, he has noticed increasing dyspnea on exertion as well as peripheral edema. Due to ongoing and worsening symptoms, he had his girlfriend bring him to the emergency room yesterday. He was found to have a markedly elevated blood pressure and was started on intravenous nicardipine infusion. During his evaluation, he was also found to have acute kidney injury and elevated troponin levels and a cardiology consultation was requested. When I saw the patient, he was breathing comfortably on BiPAP. He states that his breathing is starting to feel better but he still has persistent edema. He denies chest discomfort, paroxysmal nocturnal dyspnea, orthopnea, palpitations, lightheadedness, or syncope. When I saw pt he had BiPap on and was getting echo, couldn't really answer questions. Was very lethargic, but did wake with extra prompting. Nursing states they have one small IV 22 gauge in his shoulder and could not get access anywhere else. Allergies and Home Medications Allergies Coded Allergies: No Known Drug Allergies (Unverified , 09/18/21) Patient Home Medication List Home Medication List Reviewed: No (not available and pt couldn't answer) Past Cxqqkfo-Ozjnkw-Dioynk Hx Patient Social History Smoking Status: Former Smoker Alcohol Use?: No Substance type: Marijuana Have you traveled recently?: No Cardiovascular History of Cardiac Disorders: Yes Cardiac Disorders: Cardiomyopathy, Chronic Edema/Swelling Genitourinary History of Genitourinary Disor: Yes Genitourinary Disorders: Renal Failure Family Medical History Significant Family History: Heart Disease (denied) Review of Systems-General Constitutional: malaise, weakness Respiratory: dyspnea on exertion, short of breath Cardiovascular: No chest pain; edema Genitourinary: No dysuria, No frequency, No hematuria Physical Exam-General Problems Physical Exam Vital Signs Vital Signs - First Documented 09/18/21 09/18/21 09/18/21 14:20 17:30 21:12 Temp 37.5 Pulse 127 Resp 18 B/P (MAP) 185/132 (149) Pulse Ox 98 O2 Delivery Room Air O2 Flow Rate 2.00 Capillary Refill : Less Than 3 Seconds General Appearance: moderate distress (mostly secondary to work of breathing), obese (morbidly) Eyes: Bilateral Eye PERRL, Bilateral Eye EOMI HEENT: No scleral icterus (R), No scleral icterus (L) Neck: supple Respiratory: decreased breath sounds, accessory muscle use, crackles, wheezing Cardiovascular: no murmur, tachycardia Gastrointestinal: non tender, soft, no organomegaly, other (edema across lower abd) Extremities: no calf tenderness, pedal edema (+3) Neurologic/Psychiatric: alert, other (lethargic) Skin: normal color, warm/dry Data Review Labs Laboratory Tests 09/18/21 14:35: White Blood Count 14.4H, Red Blood Count 6.23H, Hemoglobin 12.8L, Hematocrit 43, Mean Corpuscular Volume 69L, Mean Corpuscular Hemoglobin 21L, Mean Corpuscular Hemoglobin Concent 30L, Red Cell Distribution Width 19.0H, Platelet Count 580H, Mean Platelet Volume 9.7, Immature Granulocyte % (Auto) 1, Neutrophils (%) (Auto) 75, Lymphocytes (%) (Auto) 16, Monocytes (%) (Auto) 8, Eosinophils (%) (Auto) 0, Basophils (%) (Auto) 0, Neutrophils # (Auto) 10.9H, Lymphocytes # (Auto) 2.3, Monocytes # (Auto) 1.1H, Eosinophils # (Auto) 0.0, Basophils # (Auto) 0.0, Immature Granulocyte # (Auto) 0.1, Neutrophils % (Manual) 87, Lymphocytes % (Manual) 8, Monocytes % (Manual) 5, Eosinophils % (Manual) 0, Basophils % (Manual) 0, Band Neutrophils 0, Polychromasia SLIGHT, Hypochromasia MODERATE, Anisocytosis MARKED, Microcytosis MODERATE, Target Cells SLIGHT, Prothrombin Time 16.3H, INR Comment 1.3, Activated Partial Thromboplast Time 30, D-Dimer 2.87H, Sodium Level 142, Potassium Level 4.8, Chloride Level 107, Carbon Dioxide Level 19L, Anion Gap 16H, Blood Urea Nitrogen 28H, Creatinine 2.11H, Estimat Glomerular Filtration Rate 41, BUN/Creatinine Ratio 13, Glucose Level 101, Calcium Level 9.4, Corrected Calcium 9.7, Total Bilirubin 0.8, Aspartate Amino Transf (AST/SGOT) 275H, Alanine Aminotransferase (ALT/SGPT) 252H, Alkaline Phosphatase 122, Total Creatine Kinase 391H, Troponin I 0.113H, B-Type Natriuretic Peptide 694.2H, Total Protein 7.2, Albumin 3.6, Procalcitonin 0.40H 09/18/21 15:46: Glucometer 82 09/18/21 17:26: Urine Color YELLOW, Urine Clarity CLEAR, Urine pH 6.0, Urine Specific [place] >=1.030, Urine Protein 2+H, Urine Glucose (UA) NEGATIVE, Urine Ketones NEGATIVE, Urine Nitrite NEGATIVE, Urine Bilirubin NEGATIVE, Urine Urobilinogen 0.2, Urine Leukocyte Esterase NEGATIVE, Urine RBC (Auto) 1+H, Urine RBC 0-2, Urine WBC NONE, Urine Squamous Epithelial Cells 0-2, Urine Crystals NONE, Urine Bacteria NEGATIVE, Urine Casts PRESENT, Urine Hyaline Casts 0-2H, Urine Mucus NEGATIVE, Urine Culture Indicated NO 09/18/21 18:20: Urine Color YELLOW, Urine Clarity CLEAR, Urine pH 5.5, Urine Specific [place] 1.010L, Urine Protein TRACEH, Urine Glucose (UA) NEGATIVE, Urine Ketones NEGATIVE, Urine Nitrite NEGATIVE, Urine Bilirubin NEGATIVE, Urine Urobilinogen 0.2, Urine Leukocyte Esterase NEGATIVE, Urine RBC (Auto) TRACE-IH, Urine RBC RAR E, Urine WBC NONE, Urine Squamous Epithelial Cells RARE, Urine Crystals NONE, Urine Bacteria NEGATIVE, Urine Casts NONE, Urine Mucus NEGATIVE, Urine Culture Indicated NO, Urine Opiates Screen NEGATIVE, Urine Oxycodone Screen NEGATIVE, Urine Methadone Screen NEGATIVE, Urine Propoxyphene Screen NEGATIVE, Urine Barbiturates Screen NEGATIVE, Ur Tricyclic Antidepressants Screen NEGATIVE, Urine Phencyclidine Screen NEGATIVE, Urine Amphetamines Screen NEGATIVE, Urine Methamphetamines Screen POSITIVEH, Urine Benzodiazepines Screen NEGATIVE, Urine Cocaine Screen NEGATIVE, Urine Cannabinoids Screen NEGATIVE 09/18/21 21:04: Troponin I 0.186H 09/19/21 06:20: Troponin I 0.200H, White Blood Count 14.1H, Red Blood Count 5.69H, Hemoglobin 11.6L, Hematocrit 39L, Mean Corpuscular Volume 68L, Mean Corpuscular Hemoglobin 20L, Mean Corpuscular Hemoglobin Concent 30L, Red Cell Distribution Width 17.2H, Platelet Count 563H, Mean Platelet Volume 9.8, Immature Granulocyte % (Auto) 1, Neutrophils (%) (Auto) 74, Lymphocytes (%) (Auto) 14, Monocytes (%) (Auto) 10, Eosinophils (%) (Auto) 1, Basophils (%) (Auto) 1, Neutrophils # (Auto) 10.4H, Lymphocytes # (Auto) 1.9, Monocytes # (Auto) 1.5H, Eosinophils # (Auto) 0.1, Basophils # (Auto) 0.1, Immature Granulocyte # (Auto) 0.1, Sodium Level 139, Potassium Level 4.9, Chloride Level 108H, Carbon Dioxide Level 21, Anion Gap 10, Blood Urea Nitrogen 33H, Creatinine 2.45H, Estimat Glomerular Filtration Rate 34, BUN/Creatinine Ratio 13, Glucose Level 147H, Calcium Level 8.9, Corrected Calcium 9.5, Phosphorus Level 4.6, Magnesium Level 2.0, Total Bilirubin 0.6, Aspartate Amino Transf (AST/SGOT) 183H, Alanine Aminotransferase (ALT/SGPT) 247H , Alkaline Phosphatase 114, Total Protein 6.6, Albumin 3.3, Triglycerides Level 83, Cholesterol Level 133, LDL Cholesterol Direct 95, VLDL Cholesterol 17, HDL Cholesterol 27L 09/19/21 08:30: Blood Gas Puncture Site RIGHT RADIAL, Blood Gas Patient Temperature 36, Arterial Blood pH 7.24*L, Arterial Blood Partial Pressure CO2 59H, Arterial Blood Partial Pressure O2 62L, Arterial Blood HCO3 25, Arterial Blood Total CO2 26.8, Arterial Blood Oxygen Saturation 90L, Arterial Blood Base Excess -1.7, Onel Test POSITIVE, Blood Gas Ventilator Setting NO, Blood Gas Inspired Oxygen 7 L Assessment/Plan Assessment/Plan Assessment/Plan Venous Insufficiency Morbid Obesity Cardiomyopathy with Low EF Renal Failure Pt needs IV access, will need multiple medications at the same time. Permission for central line obtained. Will place triple lumen catheter. KIERAN WATERS DO Sep 19, 2021 11:49
--- NOTE | 2021-09-19 11:54 | Progress Note-Post Operative ---
Post-Operative Progess Note Surgeon (s)/[employer] (s) Surgeon KIERAN WATERS DO [employer]: none Pre-Operative Diagnosis Venous insufficiency, MO, Cardiomyopathy, Renal Failure Post-Operative Diagnosis same Procedure & Operative Findings Date of Procedure 09/19/21 Procedure Performed/Findings Right IJ Central line Placement The patient was in his bed in the ICU, was prepped and draped in the sterile fashion. A surgical pause was performed. Ultrasound was used to locate the right internal jugular vein. Once located anesthetic was infiltrated above it. Using an 18 gauge finder needle and watching with the US; the right internal jugular vein was accessed. Dark nonpulsatile blood was withdrawn. The wire was inserted. US assured proper placement. The needle was removed. A [#11] blade scalpel was used to make a stab incision along the guidewire. Dilator sheath was then advanced over the wire using Seldinger technique and the dilator was removed. The Groshong catheter was inserted over the guide wire using the Seldinger technique. The [place] wire was removed. The catheter was then accessed in all three ports without difficulty. Good flash of blood was seen and it was then flushed with saline. The catheter was sutured in place with 3-0 silk. The area was then washed and dried. Sterile dressing was placed over incision as well as then a pressure dressing. The patient tolerated the procedure well without complication. Anesthesia Type Local Lidocaine Estimated Blood Loss Estimated blood loss (mL): less than 5ml Specimens/Packing Specimens Removed none KIERAN WATERS DO Sep 19, 2021 11:54
--- NOTE | 2021-09-19 13:09 | History & Physical-Hospitalist ---
KATHLEENMIHIRCARMEN A MED STUDENT 09/19/21 1309: History of Present Illness HPI/Chief Complaint This is a 35 yo male who presented to the ED for scrotal swelling, orthopnea and SOA. Pt has no past medical hx and has not seen a physician in "many years". Pt reports he had two days of testicular swelling as well as generalized swelling and SOA, especially when lying flat. Pt reports his significant other noticed he was having trouble breathing at night. Pt denies previous sleep study or diagnosis of obstructive sleep apnea. Pt reports he takes no medications. Today, pt states he feels better than yesterday, but on exam his is visibly SOA and his oxygen saturation is 79% on 6L NC. Pt was placed on bipap and oxygen saturations increased to 94%. Pt denied fever, chills, chest pain, palpitations, N/V/D, urinary frequency or burning, blurry vision or headache. Source: patient Exam Limitations: no limitations Date Seen 09/19/21 Time Seen by a Provider: 09:15 Attending Physician Lenny Smith MD PCP No,Local Physician Referring Physician Date of Admission Sep 18, 2021 at 16:12 Home Medications & Allergies Home Medications Reviewed patient Home Medication Reconciliation performed by pharmacy medication reconciliations arch support technician and/or nursing. Patients Allergies have been reviewed. Allergies Allergies Coded Allergies No Known Drug Allergies (Unverified09/18/21) Past Xtszzhe-Irwits-Djgawp Hx Patient Social History Tobacco Use?: No Smoking Status: Former Smoker Smokeless Tobacco Frequency: Never a User Use of E-Cig and/or Vaping dev: No Use of E-Cig and/or Vaping Cornelius: Never a User Substance use?: Yes Substance type: Marijuana Substance frequency: Once in a while Alcohol Use?: No Pt feels they are or have been: No Immunizations Up To Date Tetanus Booster (TDap): Unknown Current Status Advance Directives: No Communicates: Does Not Communicate Primary Language: Upper Sorbian Preferred Spoken Language: Upper Sorbian Is interpretation needed?: No Implanted or Applied Medical D: None Past Medical History Cardiomyopathy, Chronic Edema/Swelling Renal Failure Family Medical History Heart Disease (denied) Review of Systems Constitutional: No chills, No fever EENTM: No blurred vision, No double vision Respiratory: No cough; short of breath Cardiovascular: No chest pain; edema; No palpitations Gastrointestinal: No constipation, No diarrhea, No nausea, No vomiting Genitourinary: No dysuria, No frequency; other (scrotal swelling) Musculoskeletal: no symptoms reported Skin: no symptoms reported Psychiatric/Neurological: No Symptoms Reported Physical Exam Physical Exam Vital Signs Vital Signs - First Documented 09/18/21 09/18/21 09/18/21 14:20 17:30 21:12 Temp 37.5 Pulse 127 Resp 18 B/P (MAP) 185/132 (149) Pulse Ox 98 O2 Delivery Room Air O2 Flow Rate 2.00 Capillary Refill : Less Than 3 Seconds Height, Weight, BMI Height: '" Weight: lbs. oz. kg; 56.16 BMI Method: General Appearance: Mild Distress, Obese HEENT: PERRL/EOMI Respiratory: Chest Non Tender, Accessory Muscle Use, Decreased Breath Sounds (diminished at bases bilaterally) Cardiovascular: No Murmur, Tachycardia Gastrointestinal: Non Tender, Soft, Abnormal Bowel Sounds (unable to auscultate bowel sounds d/t fluid accumulation in abdomen) Extremity: Normal Capillary Refill, Pedal Edema (3+ pitting edema in LE bilaterally, 2+ pitting edema at level of sacrum and abdomen) Neurologic/Psychiatric: Alert, Oriented x3 Skin: Normal Color, Cool Results Results/Procedures Labs Laboratory Tests 09/18/21 14:35 09/19/21 06:20 Patient resulted labs reviewed. Assessment/Plan Admission Diagnosis HTN emergency, CHUY Reason for Inpatient Admission: HTN emergency and CHUY Assessment and Plan 35 yo super obese male who is being treated for HTN emergency and acute on chronic kidney injury with significant anasarca likely d/t methamphetamine abuse. HTN emergency Acute on chronic kidney injury Acute hypoxic respiratory failure with hypercapnia Probable TITO NSTEMI New onset heart failure with reduced EF Meth abuse Pt currently on bipap 45%, with adequate oxygen saturation, for respiratory failure. Nicardipine for HTN emergency with HTN improving. Furosemide for new onset heart failure, cardiology consulted. Central line placed. Suspect methamphetamine abuse caused HTN emergency and subsequent issues. Will continue to monitor closely in ICU for the next 24-48 hours. Pt will likely need life vest upon d/c from hospital. LENNY SMITH MD 09/19/211955: History of Present Illness Time Seen by a Provider: 10:05 Past Kdeadzf-Crdjab-Olkhtb Hx Patient Social History Substance use?: Yes Substance type: Methamphetamine Past Medical History Hypertension Renal Failure Family Medical History No Pertinent Family Hx Physical Exam Physical Exam General Appearance: Mild Distress (tachypnea), Obese HEENT: PERRL/EOMI, Other (wearing BiPAP) Respiratory: Decreased Breath Sounds (diminished at bases bilaterally), Respiratory Distress (tachypnea) Cardiovascular: No Murmur, Tachycardia Gastrointestinal: Normal Bowel Sounds, Soft Extremity: Normal Inspection, Pedal Edema (3+ pitting edema in LE bilaterally, 2+ pitting edema at level of sacrum and abdomen), Swelling Neurologic/Psychiatric: Other (lethargic) Skin: Normal Color, Warm/Dry Results Results/Procedures Imaging: Reviewed Imaging Report Assessment/Plan Admission Diagnosis Admission Status: Inpatient Order (span 2 midnights) Reason for Inpatient Admission: Respiratory failure IV BP meds Assessment and Plan Admitted with HTN emergency and started on IV Cardene, BP now improved and starting oral meds. Echo with severely reduced EF, cardiology consulted and will likely need ischemic evaluation at some point. CHUY on CKD likely due to uncontrolled HTN, started on Lasix for fluid overload. Drug screen positive for methamphetamine, likely significantly contributing to other conditions. Also super obese with presumed TITO and OHS with acute repiratory failure with hypoxia and hypercapnia now requiring BiPAP. Critically ill, complicated case with multiple medical comorbidities. Critical Care Critically Ill Patient Diagnosis/Problems Diagnosis/Problems (1) Hypertensive emergency Status: Acute (2) Acute HFrEF (heart failure with reduced ejection fraction) Status: Acute (3) Acute kidney injury superimposed on chronic kidney disease Status: Acute (4) NSTEMI (non-ST elevation myocardial infarction) Status: Acute (5) Acute respiratory failure with hypoxia and hypercapnia Status: Acute (6) TITO (obstructive sleep apnea) Status: Acute (7) Super obese Status: Chronic (8) Methamphetamine abuse Status: Acute Supervisory-Addendum Brief Verification & Attestation Participated in pt care: history, MDM, physical Personally performed: exam, history, MDM, supervision of care Care discussed with: Medical Student Procedures: n/a Results interpretation: Verified all documentation A medical student performed and documented this service in my presence. I reviewed and verified all information documented by the medical student and made modifications to such information, when appropriate. I personally performed the physical exam and medical decision making. CARMEN HART MED STUDENT Sep 19, 2021 13:09 LENNY SMITH MD Sep 19, 2021 19:56
--- NOTE | 2021-09-19 13:53 | CONSULTATION REPORT ---
DATE OF SERVICE: 09/19/2021 CONSULTATION AND PROCEDURE REPORT ATTENDING PHYSICIAN: Dr. Burrows. SUMMARY: A 35-year-old black man with generalized edema including the genitalia, anasarca, congestive heart failure, and fluid retention. Attempt to insert Will catheter by the nursing staff was unsuccessful because of the significant genital swelling. I went ahead and prepped the genitalia with Betadine and with the nurse pulling on the foreskin prior to bringing the glans as much high towards me as possible. I was able to insert a Will catheter and drained clear urine. I inflated the balloon to 10 mL with no problem and no bleeding. IMPRESSION: Difficult catheterization secondary to significant genital edema, part of anasarca. RECOMMENDATIONS: Leave Will catheter in until not needed medically and diurese as anticipated. CC: Dr. Analia Burrows - requested, unable to deliver. Job ID: [id number] DocumentID: [id number] Dictated Date: 09/19/2021 11:25:07 Clock Mechanic Date: 09/19/2021 13:52:10 Dictated By: CHARLENE ALVARADO MD
[2021-09-19 15:44] VITALS: BP 95/58
[2021-09-19 15:56] LABS: ABG BASE EXCESS -3.1 MMOL/L (-2.5-2.5); ABG OXYGEN SATURATION 85 % (94-100); ABG PCO2 56 MMHG (35-45); ABG PO2 53 MMHG (79-93); ABG TCO2 25.2 MMOL/L (21.0-31.0)
[2021-09-19 15:57] LABS: ABG PH 7.24 (7.37-7.43); ALLENS TEST POSITIVE; INSPIRED O2 45%; PATIENT TEMP 36; VENTILATOR NO
[2021-09-19] MEDS: ASPIRIN 81 MG CHEW (CHILDREN'S ASA) PO SCH (17:59)
[2021-09-19] MEDS: hydrALAZINE (APRESOLINE) 25 MG TAB PO SCH ×2 (18:00→20:20)
[2021-09-19 19:12] VITALS: BP 107/54
[2021-09-19] MEDS ORDERED: cefTRIAXone 1 GM PRE-MIX 50 ML IV NR (20:00)
[2021-09-19 23:09] VITALS: BP 96/68
[2021-09-20 02:38] VITALS: BP 85/46
[2021-09-20 04:16] LABS: ABG BASE EXCESS -3.2 MMOL/L (-2.5-2.5); ABG OXYGEN SATURATION 99 % (94-100); ABG PCO2 49 MMHG (35-45); ABG PO2 123 MMHG (79-93); ABG TCO2 24.1 MMOL/L (21.0-31.0); BASOPHILS % (AUTO) 0 % (0-10); EOSINOPHILS # (AUTO) 0.1 10^3/uL (0.0-0.3); EOSINOPHILS % (AUTO) 1 % (0-10); HEMATOCRIT 35 % (40-54); HEMOGLOBIN 10.5 g/dL (13.3-17.7); LYMPHOCYTES # (AUTO) 1.7 10^3/uL (1.0-4.0); LYMPHOCYTES % (AUTO) 16 % (12-44); MEAN CORPUSCULAR HEMOGLOBIN 21 pg (25-34); MEAN CORPUSCULAR HGB CONC 30 g/dL (32-36); MEAN CORPUSCULAR VOLUME 69 fL (80-99); MEAN PLATELET VOLUME 9.7 fL (9.0-12.2); MONOCYTES # (AUTO) 0.9 10^3/uL (0.0-1.0); MONOCYTES % (AUTO) 8 % (0-12); NEUTROPHILS # (AUTO) 8.2 10^3/uL (1.8-7.8); NEUTROPHILS % (AUTO) 74 % (42-75); PLATELET COUNT 470 10^3/uL (130-400)
[2021-09-20 04:19] LABS: ABG PH 7.28 (7.37-7.43); ALLENS TEST YES-POS; INSPIRED O2 35%; PATIENT TEMP 36.6; VENTILATOR NO
[2021-09-20 04:29] LABS: ALBUMIN 2.9 GM/DL (3.2-4.5)
[2021-09-20 04:30] LABS: POTASSIUM 4.7 MMOL/L (3.6-5.0)
[2021-09-20 04:31] LABS: CALCIUM 8.5 MG/DL (8.5-10.1)
[2021-09-20 04:32] LABS: TOTAL PROTEIN 5.6 GM/DL (6.4-8.2)
[2021-09-20] MEDS: POTASSIUM CL 10MEQ/50ML IVPB 50 ML IV SCH (04:33)
[2021-09-20] MEDS: KCL 20 MEQ TAB (K-DUR) PO SCH (04:33)
[2021-09-20] MEDS: MAGNESIUM 1 GM/100 ML IVPB 100 ML IV SCH (04:33)
[2021-09-20 04:34] LABS: BILIRUBIN,TOTAL 0.6 MG/DL (0.1-1.0)
[2021-09-20 04:35] LABS: PHOSPHORUS 5.1 MG/DL (2.3-4.7)
[2021-09-20 04:36] LABS: CREATININE SERUM 2.97 MG/DL (0.60-1.30)
[2021-09-20 04:38] LABS: MAGNESIUM 2.2 MG/DL (1.6-2.4)
[2021-09-20] MEDS: ENOXAPARIN 150 MG/ML (LOVENOX) SYR SQ SCH ×2 (05:17→17:53)
[2021-09-20] MEDS: hydrALAZINE (APRESOLINE) 25 MG TAB PO SCH ×3 (06:00→21:55)
[2021-09-20] MEDS ORDERED: NS (IVPB) 250 ML IV ONE (06:15)
[2021-09-20] MEDS ORDERED: NS IV 500 ML 500 ML ONE (06:18)
[2021-09-20] MEDS ORDERED: NS IV 500 ML 500 ML IV ONE (06:30)
[2021-09-20 06:41] VITALS: BP 113/68
--- NOTE | 2021-09-20 08:35 | Diagnostic Imaging Report ---
Indication: Respiratory failure. TIME OF EXAM: 8:02 AM Comparison is made with prior chest from 09/18/2021. Heart is enlarged but stable. Right-sided line is tip overlying SVC right atrial junction. Left lung base is obscured by the enlarged heart. Right lung appears to be fairly clear. There is no effusion or pneumothorax. IMPRESSION: Cardiomegaly. No significant abnormalities detected. Dictated by: Dictated on workstation # [id number]
--- NOTE | 2021-09-20 09:39 | Cardiology Progress Note ---
Progress Note-Cardiology Events since last exam Date Seen by Provider: Sep 20, 2021 Time Seen by Provider: 09:39 Events since last exam I am following him due to hypertensive emergency and elevated troponin level now with newly discovered severe cardiomyopathy. He remains in the intensive care unit on BiPAP. He has been able to remove the BiPAP long enough to take medications. He denies shortness of breath. He denies chest pain, palpitations, or syncope. His severe lower extremity edema persists. Certain portions of this document may have been dictated utilizing voice recognition technology. Inherent to this technology, typographical and grammatical errors may exist. As much as I am diligent to identify and correct these mistakes, some errors may remain in the document. Vitals Last set of Vitals Signs Vital Signs 09/20/21 09/20/21 09/20/21 09/20/21 09/20/21 08:30 10:37 11:45 12:00 13:15 Temp 35.9 Pulse 78 Resp 24 B/P (MAP) 128/77 Pulse Ox 99 O2 Delivery Nasal Cannula O2 Flow Rate 6.00 FiO2 30 Labs Labs Laboratory Tests 09/20/21 04:00 Exam Vital Signs Vital Signs Date Time Temp Pulse Resp B/P (MAP) Pulse Ox O2 Delivery O2 Flow Rate FiO2 09/20/21 13:15 78 128/77 09/20/21 12:00 Nasal Cannula 6.00 09/20/21 11:45 35.9 09/20/21 10:37 24 99 09/20/21 08:30 30 Physical Exam General: Alert. No acute distress. He is morbidly obese. Eye: No xanthelasma. HENT: Normocephalic. Neck: Jugular venous pressure does not appear elevated. Respiratory: Lungs have coarse upper airway sounds from the BiPAP. Respirations are non-labored. Breath sounds are equal. Symmetrical chest wall expansion. Cardiovascular: Normal rate. Regular rhythm. Distant S1/S2. No murmur. No gallop. 4+ bilateral pretibial edema. Gastrointestinal: Soft. Normal bowel sounds. Skin: Warm. Dry. Neurologic: Alert and oriented to person, place, time. Cranial nerves 3-11 grossly intact. Psychiatric: Cooperative. Appropriate mood & affect. Labs Laboratory Tests Test 09/19/21 15:43 09/20/21 04:00 Range/Units Blood Gas Puncture Site RIGHT RADIAL RIGHT RADIAL Blood Gas Patient Temperature 36 36.6 Arterial Blood pH 7.24 *L 7.28 *L 7.37-7.43 Arterial Blood Partial Pressure CO2 56 H 49 H 35-45 MMHG Arterial Blood Partial Pressure O2 53 L 123 H 79-93 MMHG Arterial Blood HCO3 23 23 23-27 MMOL/L Arterial Blood Total CO2 25.2 24.1 21.0-31.0 MMOL/L Arterial Blood Oxygen Saturation 85 L 99 94-100 % Arterial Blood Base Excess -3.1 L -3.2 L -2.5-2.5 MMOL/L Onel Test POSITIVE YES-POS Blood Gas Ventilator Setting NO NO Blood Gas Inspired Oxygen 45% 35% White Blood Count 11.0 4.3-11.0 10^3/uL Red Blood Count 5.10 4.30-5.52 10^6/uL Hemoglobin 10.5 L 13.3-17.7 g/dL Hematocrit 35 L 40-54 % Mean Corpuscular Volume 69 L 80-99 fL Mean Corpuscular Hemoglobin 21 L 25-34 pg Mean Corpuscular Hemoglobin Concent 30 L 32-36 g/dL Red Cell Distribution Width 17.0 H 10.0-14.5 % Platelet Count 470 H 130-400 10^3/uL Mean Platelet Volume 9.7 9.0-12.2 fL Immature Granulocyte % (Auto) 1 % Neutrophils (%) (Auto) 74 42-75 % Lymphocytes (%) (Auto) 16 12-44 % Monocytes (%) (Auto) 8 0-12 % Eosinophils (%) (Auto) 1 0-10 % Basophils (%) (Auto) 0 0-10 % Neutrophils # (Auto) 8.2 H 1.8-7.8 10^3/uL Lymphocytes # (Auto) 1.7 1.0-4.0 10^3/uL Monocytes # (Auto) 0.9 0.0-1.0 10^3/uL Eosinophils # (Auto) 0.1 0.0-0.3 10^3/uL Basophils # (Auto) 0.0 0.0-0.1 10^3/uL Immature Granulocyte # (Auto) 0.1 0.0-0.1 10^3/uL Sodium Level 138 135-145 MMOL/L Potassium Level 4.7 3.6-5.0 MMOL/L Chloride Level 105 98-107 MMOL/L Carbon Dioxide Level 21 21-32 MMOL/L Anion Gap 12 5-14 MMOL/L Blood Urea Nitrogen 37 H 7-18 MG/DL Creatinine 2.97 #H 0.60-1.30 MG/DL Estimat Glomerular Filtration Rate 27 BUN/Creatinine Ratio 12 Glucose Level 102 70-105 MG/DL Calcium Level 8.5 8.5-10.1 MG/DL Corrected Calcium 9.4 8.5-10.1 MG/DL Phosphorus Level 5.1 H 2.3-4.7 MG/DL Magnesium Level 2.2 1.6-2.4 MG/DL Total Bilirubin 0.6 0.1-1.0 MG/DL Aspartate Amino Transf (AST/SGOT) 93 H 5-34 U/L Alanine Aminotransferase (ALT/SGPT) 178 H 0-55 U/L Alkaline Phosphatase 84 40-136 U/L Total Protein 5.6 L 6.4-8.2 GM/DL Albumin 2.9 L 3.2-4.5 GM/DL Procalcitonin 0.54 H <0.10 NG/ML Diagnosis/Problems Diagnosis/Problems (1) Hypertensive emergency Status: Acute Assessment & Plan: He had markedly elevated blood pressures with evidence of acute heart failure. His blood pressures improved with nicardipine infusion but then he was having problems with low blood pressure later on in the day on 09/19. I changed this over to oral medication. Due to the somewhat low blood pressures, I will reduce the dose of carvedilol and hydralazine. The isosorbide mononitrate that I started for his left ventricular systolic dysfunction should not cause hypotension. (2) Cardiomyopathy Assessment & Plan: His echocardiogram from 09/19 showed severe left ventricular systolic dysfunction with an estimated ejection fraction of 20-25%. Exact etiology unclear. As above, I have lowered the dose of carvedilol and hydralazine due to borderline low blood pressures. He is not a good candidate for NORRIS inhibitor, ARB or aldosterone antagonist due to his acute kidney injury which appears to be worsening. I will start him on low-dose intravenous dobutamine to see if this may help improve his heart failure and renal function. At some point, we may need to consider further evaluation with a cardiac catheterization to exclude coronary artery disease as a possible etiology of the cardiomyopathy. However, we need to wait for his renal function to improve before giving him intravenous contrast. (3) Elevated troponin Assessment & Plan: This was probably a type II non-ST elevation myocardial infarction due to supply/demand mismatch related to the hypertensive emergency on top of heart failure. (4) Acute HFrEF (heart failure with reduced ejection fraction) Status: Acute Assessment & Plan: His chest x-rays have shown pulmonary congestion and he is short of breath. He was given 2 doses of intravenous furosemide. We will need to be cautious with diuretics due to his acute kidney injury. I have also made adjustments to the antihypertensive regimen as outlined above. His chest x-ray from 09/20 appeared to show improved aeration. (5) Acute kidney injury Status: Acute Assessment & Plan: This will need to be monitored closely. We do not know his baseline renal function because he does not normally go to doctors. Unfortunately, his renal function appears to be getting worse. If this does not improve, he may end up needing ultrafiltration or possibly hemodialysis. (6) Morbid obesity Status: Acute Assessment & Plan: He needs to work on weight loss. If he cannot lose a significant amount of weight over the next 6-12 months, I would consider referring him for bariatric consultation at that time. JAH CANNON JR, MD Sep 20, 2021 09:39
--- NOTE | 2021-09-20 09:49 | Tele-ICU Progress Note ---
Subjective Date Seen by a Provider: Sep 20, 2021 Time Seen by a Provider: 09:49 Sepsis Event Evaluation Height, Weight, BMI Height: '" Weight: lbs. oz. kg; 56.16 BMI Method: Exam Exam Patient acknowledged, consented, and participated in this virtual visit which was conducted using real time audio/video Vital Signs Date Time Temp Pulse Resp B/P (MAP) Pulse Ox O2 Delivery O2 Flow Rate FiO2 09/20/21 09:00 75 22 138/95 98 NIV Bilevel 21.00 09/20/21 08:30 99 NIV Bilevel 30 09/20/21 08:00 78 22 117/70 98 NIV Bilevel 30.00 09/20/21 07:52 35.4 09/20/21 07:47 78 09/20/21 07:00 76 20 130/63 90 NIV Bilevel 30.00 09/20/21 06:47 21.00 09/20/21 06:41 76 30 95 30.00 09/20/21 06:00 NIV Bilevel 30.00 09/20/21 06:00 78 20 118/81 97 NIV Bilevel 30.00 09/20/21 05:20 77 19 108/65 99 NIV Bilevel 35.00 09/20/21 04:00 100 NIV Bilevel 35 09/20/21 04:00 36.6 78 33 111/72 100 NIV Bilevel 35.00 09/20/21 03:00 77 28 104/71 99 NIV Bilevel 35.00 09/20/21 02:42 NIV Bilevel 35.00 09/20/21 02:39 NIV Bilevel 35.00 09/20/21 02:38 100 32 100 45.00 09/20/21 02:00 78 28 92/56 99 NIV Bilevel 45.00 09/20/21 01:00 76 09/20/21 01:00 76 37 92/58 98 NIV Bilevel 45.00 09/20/21 00:00 76 25 92/60 93 NIV Bilevel 45.00 09/19/21 23:25 93 NIV Bilevel 45 09/19/21 23:20 36.2 78 29 96/68 93 NIV Bilevel 45.00 09/19/21 23:09 100 24 93 45.00 09/19/21 23:00 81 25 96/68 92 NIV Bilevel 45.00 09/19/21 22:00 87 20 123/89 96 NIV Bilevel 45.00 09/19/21 21:00 97 30 122/88 93 NIV Bilevel 45.00 09/19/21 20:27 NIV Bilevel 45.00 09/19/21 20:17 NIV Bilevel 50.00 09/19/21 20:00 105 39 136/85 90 NIV Bilevel 45.00 09/19/21 20:00 98 NIV Bilevel 45 09/19/21 19:12 100 27 100 45.00 09/19/21 19:00 101 09/19/21 19:00 35.6 100 39 93/61 94 NIV Bilevel 45.00 09/19/21 18:00 99 22 147/95 94 NIV Bilevel 45.00 09/19/21 17:00 NIV Bilevel 45 09/19/21 17:00 105 35 119/62 97 NIV Bilevel 45.00 09/19/21 16:00 98 35 131/57 94 NIV Bilevel 45.00 09/19/21 15:44 96 37 96 45.00 09/19/21 15:00 99 34 87/61 94 NIV Bilevel 45.00 09/19/21 14:00 101 32 118/74 94 NIV Bilevel 45.00 09/19/21 13:00 100 35 121/35 93 NIV Bilevel 45.00 09/19/21 12:39 99 09/19/21 12:00 NIV Bilevel 45 09/19/21 12:00 101 21 129/85 95 NIV Bilevel 45.00 09/19/21 11:00 103 33 159/103 99 NIV Bilevel 45.00 09/19/21 10:00 103 34 127/89 95 NIV Bilevel 45.00 I & O 09/20/21 07:00 Intake Total 1850 ml Output Total 755 ml Balance 1095 ml Height & Weight Height: '" Weight: lbs. oz. kg; 56.16 BMI Method: General Appearance: Mild Distress (tachypnea), Obese HEENT: PERRL/EOMI, Other (wearing BiPAP) Neck: Full Range of Motion, Normal Inspection, Non Tender, Supple Respiratory: Decreased Breath Sounds (diminished at bases bilaterally), Respiratory Distress (tachypnea) Cardiovascular: No Murmur, Tachycardia Capillary Refill: Less Than 3 Seconds Gastrointestinal: non tender, soft, no organomegaly, other (edema across lower abd) Extremity: Normal Inspection, Pedal Edema (3+ pitting edema in LE bilaterally, 2+ pitting edema at level of sacrum and abdomen), Swelling Neurologic/Psychiatric: Other (lethargic) Skin: Normal Color, Warm/Dry Lymphatic: No Adenopathy Results Lab Laboratory Tests 09/18/21 14:35 09/19/21 06:20 09/20/21 04:00 Assessment/Plan Assessment/Plan Tele-ICU Physician , Progress Note ) Available chart/ vitals / labs / Images reviewed Video assessment done using teleICU camera, rest of exam as per RN Discussed with RN , EXAM PER RN Events overnight : hypotensive Afebrile FiO2 - I/O = Drips: nicardipine OFF Pressors: , hemodynamically stable Consultants: linda Hospital course: - adnitted with scrotal edema , anasarca 09/19 - TITO - > BIPAP, EF 20 % 09/20 - worsenign Cr A/P Acute hypercarbic resp failure - inderlying TITO / OHVS - Bipap 20/8 30 % , follow abg , need outpatient sleep study and NIPPV CHUY, Cr 2.1-> wortsenign with diuresis - most likely cardio-renal syndrome - ? inotrops - as per cards - voiding , good UO HTN - cardene gtt OFF - hypotensive last night - responded to 50 ns bolus Cardiomyopathy - ECHO 09/18 - EF 20-25% -w/up and meds as per cardiology - ?dobutamine - as per cards Elev d-dimer - US LE neg fo dvt - lovenox full dose given scrotal swelling - as per RN exam - no cellulitis, WBC 14 , PCT 0.4 - riding to 0.6 added rocephin , -- PER BEDSIDE MD to reassess Elevated LFT - ? liver congestion Positive for methamphetamine - Lines : (Central Line Necessity Reviewed) Will: OG: Nutrition: po Analgesia: Anxiety/ delirium VTE Prophylaxis: juan carlos full dose Stress Ulcer Prophylaxis: Plans in collaboration with bedside consultants and IM MDs. Discussed with RN to reach out if any questions or concerns A total of 33 minutes of critical care time was devoted to this patient today, required to treat and/or prevent further deterioration of critical care condition ( as above ) THOMAS FERRARI MD 26, 2022 09:49
[2021-09-20] MEDS ORDERED: cefTRIAXone 1,000 MG VIAL IM SCH (10:00)
[2021-09-20] MEDS ORDERED: LIDOCAINE 1% INJ 20 ML VIAL INJ ONE (10:00)
[2021-09-20] MEDS ORDERED: NS IV 1000 ML 1,000 ML ONE (10:09)
[2021-09-20 10:37] VITALS: BP 110/71
[2021-09-20] MEDS: ISOSORBIDE MONONITRATE 60 MG (IMDUR) TAB PO SCH (10:53)
[2021-09-20] MEDS ORDERED: METOLAZONE 5 MG (ZAROXOLYN) TAB PO NR (11:15)
--- NOTE | 2021-09-20 12:37 | Progress Note - Hospitalist ---
CARMEN HART A MED STUDENT 09/20/21 1237: Subjective HPI/CC On Admission Date Seen by Provider: Sep 20, 2021 Time Seen by Provider: 09:00 This is a 35 yo male who presented to the ED for scrotal swelling, orthopnea and SOA. Pt has no past medical hx and has not seen a physician in "many years". Pt reports he had two days of testicular swelling as well as generalized swelling and SOA, especially when lying flat. Pt reports his significant other noticed he was having trouble breathing at night. Pt denies previous sleep study or diagnosis of obstructive sleep apnea. Pt reports he takes no medications. Today, pt states he feels better than yesterday, but on exam his is visibly SOA and his oxygen saturation is 79% on 6L NC. Pt was placed on bipap and oxygen saturations increased to 94%. Pt denied fever, chills, chest pain, palpitations, N/V/D, urinary frequency or burning, blurry vision or headache. Subjective/Events-last exam Pt is asleep in bed, but easy to awaken. Pt reports he does have SOA that is about the same as yesterday. Pt denies fever, chills, chest pain, palpitations, N/V/D, weakness, numbness, tingling, headache or blurry vision. Pt denied recent methamphetamine abuse. Review of Systems General: No Chills, No Appetite HEENT: No Head Aches, No Visual Changes Pulmonary: Dyspnea; No Cough Cardiovascular: No: Chest Pain, Palpitations Gastrointestinal: No: Nausea, Vomiting, Abdominal Pain Genitourinary: No Dysuria, No Frequency Neurological: No: Weakness, Numbness Objective Exam Vital Signs Vital Signs Date Time Temp Pulse Resp B/P (MAP) Pulse Ox O2 Delivery O2 Flow Rate FiO2 09/20/21 11:45 35.9 09/20/21 10:37 78 24 99 30.00 09/20/21 10:00 131/77 NIV Bilevel 09/20/21 08:30 30 Capillary Refill : Less Than 3 Seconds General Appearance: Mild Distress, Obese HEENT: PERRL/EOMI Respiratory: Chest Non Tender, Respiratory Distress, Wheezing (inspiratory), Other (on bipap) Cardiovascular: Regular Rate, Rhythm, No Murmur Gastrointestinal: Non Tender, Abnormal Bowel Sounds (no bowel sounds heard d/t fluid on abdomen) Extremity: Pedal Edema (3+ pitting edema bilaterally), Other (2+ pitting edema up to abdomen) Neurologic/Psychiatric: Alert, Oriented x3, Depressed Affect Skin: Normal Color, Warm/Dry Results/Procedures Lab Laboratory Tests 09/20/21 04:00 Patient resulted labs reviewed. Imaging: Reviewed Imaging Report Assessment/Plan Assessment and Plan Assess & Plan/Chief Complaint 35 yo super obese male who is being treated for fluid overload secondary to new onset heart failure complicated by acute tubular necrosis on chronic kidney disease. New onset heart failure with reduced EF Acute on chronic kidney injury Acute hypoxic respiratory failure with hypercapnia HTN Probable TITO NSTEMI Meth abuse Pt currently on bipap 30%, with adequate oxygen saturation. Nicardipine as needed for HTN. Furosemide drip and metolazone for new onset heart failure with fluid overload, cardiology consulted. CVP was 29. Will continue to monitor closely in ICU for the next 24-48 hours. HTN medication held as pt was hypotensive overnight. Plan of care was discussed with eICU, who was in agreement of treatment. LENNY SMITH MD 09/20/21 2216: Subjective HPI/CC On Admission Time Seen by Provider: 10:00 Assessment/Plan Assessment and Plan Assess & Plan/Chief Complaint Begin IV Lasix gtt and Metolazone for acutely decompensated heart failure. Also starting low dose Dobutamine for possible cardiorenal syndrome. Critical Care: Critically Ill Patient Diagnosis/Problems Diagnosis/Problems (1) Acute HFrEF (heart failure with reduced ejection fraction) Status: Acute (2) Acute respiratory failure with hypoxia and hypercapnia Status: Acute (3) Acute kidney injury superimposed on chronic kidney disease Status: Acute (4) Super obese Status: Chronic (5) Hypertensive emergency Status: Acute (6) NSTEMI (non-ST elevation myocardial infarction) Status: Acute (7) TITO (obstructive sleep apnea) Status: Acute Supervisory-Addendum Brief Verification & Attestation Participated in pt care: history, MDM, physical Personally performed: exam, history, MDM, supervision of care Care discussed with: Medical Student Procedures: n/a Results interpretation: Verified all documentation A medical student performed and documented this service in my presence. I reviewed and verified all information documented by the medical student and made modifications to such information, when appropriate. I personally performed the physical exam and medical decision making. CARMEN HART MED STUDENT Sep 20, 2021 12:37 LENNY SMITH MD Sep 20, 2021 22:16
[2021-09-20] MEDS: ASPIRIN 81 MG CHEW (CHILDREN'S ASA) PO SCH (13:14)
[2021-09-20] MEDS: DOBUTamine DRIP 250 ML IV SCH ×3 (13:15→21:55)
[2021-09-20] MEDS: FUROSEMIDE INJECTION 120 MG in D5W 100 ML IVPB 108 ML IV SCH ×2 (13:16→21:56)
[2021-09-20] MEDS ORDERED: LIDOCAINE 1% INJ 20 ML VIAL ONE (13:20)
[2021-09-20 16:14] VITALS: BP 127/72
[2021-09-20] MEDS: niCARdipine 50 MG/NS 250 ML IV DRIP IV SCH ×2 (17:53)
[2021-09-20 19:31] LABS: CALCIUM 8.4 MG/DL (8.5-10.1); CREATININE SERUM 2.83 MG/DL (0.60-1.30); POTASSIUM 4.1 MMOL/L (3.6-5.0)
[2021-09-20 21:51] VITALS: BP 133/82
[2021-09-21 04:17] LABS: BASOPHILS % (AUTO) 0 % (0-10); EOSINOPHILS # (AUTO) 0.2 10^3/uL (0.0-0.3); EOSINOPHILS % (AUTO) 2 % (0-10); HEMATOCRIT 35 % (40-54); HEMOGLOBIN 10.6 g/dL (13.3-17.7); LYMPHOCYTES # (AUTO) 1.9 10^3/uL (1.0-4.0); LYMPHOCYTES % (AUTO) 22 % (12-44); MEAN CORPUSCULAR HEMOGLOBIN 21 pg (25-34); MEAN CORPUSCULAR HGB CONC 30 g/dL (32-36); MEAN CORPUSCULAR VOLUME 68 fL (80-99); MEAN PLATELET VOLUME 9.5 fL (9.0-12.2); MONOCYTES # (AUTO) 0.9 10^3/uL (0.0-1.0); MONOCYTES % (AUTO) 11 % (0-12); NEUTROPHILS # (AUTO) 5.4 10^3/uL (1.8-7.8); NEUTROPHILS % (AUTO) 64 % (42-75); PLATELET COUNT 438 10^3/uL (130-400); WHITE BLOOD COUNT 8.4 10^3/uL (4.3-11.0)
[2021-09-21 05:24] LABS: ALBUMIN 2.9 GM/DL (3.2-4.5); POTASSIUM 3.7 MMOL/L (3.6-5.0)
[2021-09-21 05:26] LABS: CALCIUM 8.3 MG/DL (8.5-10.1)
[2021-09-21 05:27] LABS: TOTAL PROTEIN 5.6 GM/DL (6.4-8.2)
[2021-09-21 05:29] LABS: BILIRUBIN,TOTAL 0.5 MG/DL (0.1-1.0)
[2021-09-21 05:30] LABS: PHOSPHORUS 4.2 MG/DL (2.3-4.7)
[2021-09-21 05:31] LABS: CREATININE SERUM 2.65 MG/DL (0.60-1.30)
[2021-09-21] MEDS: niCARdipine 50 MG/NS 250 ML IV DRIP IV SCH ×6 (05:35→23:47)
[2021-09-21] MEDS: KCL 20 MEQ TAB (K-DUR) PO SCH (05:35)
[2021-09-21] MEDS: POTASSIUM CL 10MEQ/50ML IVPB 50 ML IV SCH (05:35)
[2021-09-21] MEDS: MAGNESIUM 1 GM/100 ML IVPB 100 ML IV SCH (05:35)
[2021-09-21 05:39] LABS: ABG BASE EXCESS 1.4 MMOL/L (-2.5-2.5); ABG OXYGEN SATURATION 98 % (94-100); ABG PCO2 51 MMHG (35-45); ABG PO2 89 MMHG (79-93); ABG TCO2 28.4 MMOL/L (21.0-31.0)
[2021-09-21 05:41] LABS: ALLENS TEST YES-POS; INSPIRED O2 25%
[2021-09-21 05:42] LABS: PATIENT TEMP 36.3; VENTILATOR NO
[2021-09-21 05:43] LABS: ABG PH 7.34 (7.37-7.43)
[2021-09-21] MEDS: ENOXAPARIN 150 MG/ML (LOVENOX) SYR SQ SCH ×2 (05:54→16:28)
[2021-09-21] MEDS: hydrALAZINE (APRESOLINE) 25 MG TAB PO SCH ×3 (05:54→21:57)
[2021-09-21 07:22] VITALS: BP 133/82
[2021-09-21] MEDS: DOBUTamine DRIP 250 ML IV SCH ×2 (07:33→16:28)
[2021-09-21] MEDS: ASPIRIN 81 MG CHEW (CHILDREN'S ASA) PO SCH (08:37)
[2021-09-21] MEDS: ISOSORBIDE MONONITRATE 60 MG (IMDUR) TAB PO SCH (08:37)
--- NOTE | 2021-09-21 08:53 | Cardiology Progress Note ---
Progress Note-Cardiology Events since last exam Date Seen by Provider: Sep 21, 2021 Time Seen by Provider: 08:51 Events since last exam I am following him due to hypertensive emergency, elevated troponin level and newly diagnosed cardiomyopathy. He remains in the intensive care unit but this morning he was sitting up in bed eating breakfast. He has been able to come off BiPAP except when he is sleeping. He states his breathing is much improved. He denies chest pain, palpitations, or syncope. He has persistent lower extremity edema but this is improving. Certain portions of this document may have been dictated utilizing voice recognition technology. Inherent to this technology, typographical and g rammatical errors may exist. As much as I am diligent to identify and correct these mistakes, some errors may remain in the document. Vitals Last set of Vitals Signs Vital Signs 09/21/21 09/21/21 09/21/21 09/21/21 07:57 08:14 09:00 09:14 Temp 36.1 Pulse 92 Resp 12 B/P (MAP) 135/85 Pulse Ox 99 O2 Delivery NIV Bilevel O2 Flow Rate 25.00 FiO2 25 Labs Labs Laboratory Tests 09/20/21 19:00 09/21/21 04:00 Exam Vital Signs Vital Signs Date Time Temp Pulse Resp B/P (MAP) Pulse Ox O2 Delivery O2 Flow Rate FiO2 09/21/21 09:14 NIV Bilevel 25.00 09/21/21 09:00 92 12 135/85 99 09/21/21 08:14 25 09/21/21 07:57 36.1 Physical Exam General: Alert. No acute distress. He is morbidly obese. Eye: No xanthelasma. HENT: Normocephalic. Neck: Jugular venous pressure does not appear elevated. Respiratory: Lungs are clear to auscultation. Respirations are non-labored. Breath sounds are equal. Symmetrical chest wall expansion. Cardiovascular: Normal rate. Regular rhythm. Distant S1/S2. No murmur. No gallop. 2+ bilateral pretibial edema. Gastrointestinal: Soft. Normal bowel sounds. Skin: Warm. Dry. Neurologic: Alert and oriented to person, place, time. Cranial nerves 3-11 grossly intact. Psychiatric: Cooperative. Appropriate mood & affect. Labs Laboratory Tests Test 09/20/21 19:00 09/21/21 04:00 09/21/21 05:30 Range/Units Sodium Level 138 138 135-145 MMOL/L Potassium Level 4.1 3.7 3.6-5.0 MMOL/L Chloride Level 105 104 98-107 MMOL/L Carbon Dioxide Level 22 21 21-32 MMOL/L Anion Gap 11 13 5-14 MMOL/L Blood Urea Nitrogen 38 H 34 H 7-18 MG/DL Creatinine 2.83 H 2.65 H 0.60-1.30 MG/DL Estimat Glomerular Filtration Rate 29 31 BUN/Creatinine Ratio 13 13 Glucose Level 118 H 121 H 70-105 MG/DL Calcium Level 8.4 L 8.3 L 8.5-10.1 MG/DL White Blood Count 8.4 4.3-11.0 10^3/uL Red Blood Count 5.15 4.30-5.52 10^6/uL Hemoglobin 10.6 L 13.3-17.7 g/dL Hematocrit 35 L 40-54 % Mean Corpuscular Volume 68 L 80-99 fL Mean Corpuscular Hemoglobin 21 L 25-34 pg Mean Corpuscular Hemoglobin Concent 30 L 32-36 g/dL Red Cell Distribution Width 16.6 H 10.0-14.5 % Platelet Count 438 H 130-400 10^3/uL Mean Platelet Volume 9.5 9.0-12.2 fL Immature Granulocyte % (Auto) 0 % Neutrophils (%) (Auto) 64 42-75 % Lymphocytes (%) (Auto) 22 12-44 % Monocytes (%) (Auto) 11 0-12 % Eosinophils (%) (Auto) 2 0-10 % Basophils (%) (Auto) 0 0-10 % Neutrophils # (Auto) 5.4 1.8-7.8 10^3/uL Lymphocytes # (Auto) 1.9 1.0-4.0 10^3/uL Monocytes # (Auto) 0.9 0.0-1.0 10^3/uL Eosinophils # (Auto) 0.2 0.0-0.3 10^3/uL Basophils # (Auto) 0.0 0.0-0.1 10^3/uL Immature Granulocyte # (Auto) 0.0 0.0-0.1 10^3/uL Corrected Calcium 9.2 8.5-10.1 MG/DL Phosphorus Level 4.2 2.3-4.7 MG/DL Magnesium Level 2.0 1.6-2.4 MG/DL Total Bilirubin 0.5 0.1-1.0 MG/DL Aspartate Amino Transf (AST/SGOT) 56 H 5-34 U/L Alanine Aminotransferase (ALT/SGPT) 139 H 0-55 U/L Alkaline Phosphatase 79 40-136 U/L Total Protein 5.6 L 6.4-8.2 GM/DL Albumin 2.9 L 3.2-4.5 GM/DL Blood Gas Puncture Site RR Blood Gas Patient Temperature 36.3 Arterial Blood pH 7.34 *L 7.37-7.43 Arterial Blood Partial Pressure CO2 51 H 35-45 MMHG Arterial Blood Partial Pressure O2 89 79-93 MMHG Arterial Blood HCO3 27 23-27 MMOL/L Arterial Blood Total CO2 28.4 21.0-31.0 MMOL/L Arterial Blood Oxygen Saturation 98 94-100 % Arterial Blood Base Excess 1.4 -2.5-2.5 MMOL/L Onel Test YES-POS Blood Gas Ventilator Setting NO Blood Gas Inspired Oxygen 25% Diagnosis/Problems Diagnosis/Problems (1) Hypertensive emergency Status: Acute Assessment & Plan: He had markedly elevated blood pressures with evidence of acute heart failure. His blood pressures improved with nicardipine infusion but then he was having problems with low blood pressure later on in the day on 09/19. I changed intravenous nicardipine over to oral medication. Due to the somewhat low blood pressures, I reduced the dose of carvedilol and hydralazine. The isosorbide mononitrate that I started for his left ventricular systolic dysfunction should not cause hypotension. (2) Cardiomyopathy Assessment & Plan: His echocardiogram from 09/19 showed severe left ventricular systolic dysfunction with an estimated ejection fraction of 20-25%. Exact e tiology unclear. As above, I lowered the dose of carvedilol and hydralazine due to borderline low blood pressures on 09/20. He is not a good candidate for NORRIS inhibitor, ARB or aldosterone antagonist due to his acute kidney injury which appears to be worsening. I started him on low-dose intravenous dobutamine on 09/20 to see if this may help improve his heart failure and renal function. At some point, we may need to consider further evaluation with a cardiac catheterization to exclude coronary artery disease as a possible etiology of the cardiomyopathy. However, we need to wait for his renal function to improve before giving him intravenous contrast. (3) Elevated troponin Assessment & Plan: This was probably a type II non-ST elevation myocardial infarction due to supply/demand mismatch related to the hypertensive emergency on top of heart failure as well as some component of noncardiac troponin elevation due to the acute kidney injury. (4) Acute HFrEF (heart failure with reduced ejection fraction) Status: Acute Assessment & Plan: His chest x-rays have shown pulmonary congestion and he is short of breath but improving. He is now on furosemide infusion. Sometimes this will paradoxically improve the renal function. We will need to be cautious with diuretics due to his acute kidney injury. I have also made adjustments to the antihypertensive regimen as outlined above. His chest x-ray from 09/20 appeared to show improved aeration. (5) Acute kidney injury Status: Acute Assessment & Plan: This will need to be monitored closely. We do not know his baseline renal function because he does not normally go to doctors. His creatinine was initially getting worse but now seems to be trending downwards. If his renal function does not improve, he may end up needing ultrafiltration or possibly hemodialysis. (6) Morbid obesity Status: Acute Assessment & Plan: He needs to work on weight loss. If he cannot lose a significant amount of weight over the next 6-12 months, I would consider referring him for bariatric consultation at that time. JAH CANNON JR, MD Sep 21, 2021 08:53
--- NOTE | 2021-09-21 09:03 | Progress Note - Urology ---
Progress Note-Urology Progress Notes/Assess & Plan Progress/Assessment & Plan MOREJON DRAINING WELL. URINE CLEAR. WE WILL SEE PRN Final Diagnosis GENITAL EDEMA CHARLENE ALVARADO MD Sep 21, 2021 09:03
--- NOTE | 2021-09-21 10:05 | Tele-ICU Progress Note ---
Subjective Date Seen by a Provider: Sep 21, 2021 Time Seen by a Provider: 10:05 Sepsis Event Evaluation Height, Weight, BMI Height: '" Weight: lbs. oz. kg; 56.16 BMI Method: Exam Exam Patient acknowledged, consented, and participated in this virtual visit which was conducted using real time audio/video Vital Signs Date Time Temp Pulse Resp B/P (MAP) Pulse Ox O2 Delivery O2 Flow Rate FiO2 09/21/21 09:14 NIV Bilevel 25.00 09/21/21 09:00 92 12 135/85 99 Room Air 09/21/21 08:33 Room Air 09/21/21 08:14 100 NIV Bilevel 25 09/21/21 08:00 94 14 131/96 100 Room Air 09/21/21 07:57 36.1 09/21/21 07:33 91 133/82 09/21/21 07:22 91 26 96 25.00 09/21/21 07:00 93 22 142/85 100 NIV Bilevel 25.00 09/21/21 07:00 93 09/21/21 06:00 97 21 127/74 99 NIV Bilevel 25.00 09/21/21 05:00 96 33 139/85 97 NIV Bilevel 25.00 09/21/21 04:00 36.3 NIV Bilevel 25.00 09/21/21 04:00 91 28 133/73 97 NIV Bilevel 25.00 09/21/21 04:00 96 NIV Bilevel 25 09/21/21 03:00 95 32 132/77 96 NIV Bilevel 25.00 09/21/21 02:00 90 21 148/91 97 NIV Bilevel 25.00 09/21/21 01:00 90 27 120/91 98 NIV Bilevel 25.00 09/21/21 01:00 100 09/21/21 00:00 95 NIV Bilevel 25 09/21/21 00:00 89 25 130/80 98 NIV Bilevel 25.00 09/21/21 00:00 36.9 NIV Bilevel 25.00 09/20/21 23:00 90 27 124/72 96 NIV Bilevel 30.00 09/20/21 22:00 89 20 127/79 96 NIV Bilevel 30.00 09/20/21 21:55 90 133/82 09/20/21 21:51 90 22 97 30.00 09/20/21 21:00 92 28 127/76 97 NIV Bilevel 30.00 09/20/21 20:15 NIV Bilevel 30.00 09/20/21 20:03 36.4 09/20/21 20:00 94 22 110/66 99 Nasal Cannula 3.00 09/20/21 19:23 Nasal Cannula 3.00 09/20/21 19:20 98 Nasal Cannula 5.00 09/20/21 19:00 100 09/20/21 19:00 36.6 94 32 121/72 99 Nasal Cannula 5.00 09/20/21 18:00 96 28 120/69 99 NIV Bilevel 21.00 09/20/21 17:00 87 29 106/60 97 NIV Bilevel 21.00 09/20/21 16:14 86 25 98 30.00 09/20/21 16:00 86 29 127/75 98 NIV Bilevel 21.00 09/20/21 15:39 36.2 09/20/21 15:08 83 09/20/21 15:00 87 29 124/77 97 NIV Bilevel 21.00 09/20/21 15:00 NIV Bilevel 30.00 97 09/20/21 14:00 82 29 105/69 90 NIV Bilevel 21.00 09/20/21 13:15 78 128/77 09/20/21 13:00 90 29 128/77 90 NIV Bilevel 21.00 09/20/21 12:00 80 29 131/82 94 NIV Bilevel 21.00 09/20/21 12:00 Nasal Cannula 6.00 09/20/21 11:45 35.9 09/20/21 11:00 79 29 118/74 97 NIV Bilevel 21.00 09/20/21 10:37 78 24 99 30.00 I & O 09/21/21 07:00 Intake Total 3280 ml Output Total 4930 ml Balance -1650 ml Height & Weight Height: '" Weight: lbs. oz. kg; 56.16 BMI Method: General Appearance: Mild Distress, Obese HEENT: PERRL/EOMI Neck: Full Range of Motion, Normal Inspection, Non Tender, Supple Respiratory: Chest Non Tender, Respiratory Distress, Wheezing (inspiratory), Other (on bipap) Cardiovascular: Regular Rate, Rhythm, No Murmur Capillary Refill: Less Than 3 Seconds Gastrointestinal: non tender, soft, no organomegaly, other (edema across lower abd) Extremity: Pedal Edema (3+ pitting edema bilaterally), Other (2+ pitting edema up to abdomen) Neurologic/Psychiatric: Alert, Oriented x3, Depressed Affect Skin: Normal Color, Warm/Dry Lymphatic: No Adenopathy Results Lab Laboratory Tests 09/20/21 04:00 09/20/21 19:00 09/21/21 04:00 Assessment/Plan Assessment/Plan Tele-ICU Physician , Progress Note ) Available chart/ vitals / labs / Images reviewed Video assessment done using teleICU camera, rest of exam as per RN Discussed with RN , EXAM PER RN Events overnight : hypotensive Afebrile FiO2 - I/O = >5 L Drips: nicardipine OFF, lasix 1.5 dobs 2.5 Pressors: , hemodynamically stable Consultants: linda Hospital course: - adnitted with scrotal edema , anasarca 09/19 - TITO - > BIPAP, EF 20 % 09/20 - worsenign Cr , CVP16 - started on dobs2.5 and lasix gtt 09/21 - Bipap 25% , UO>5L - Cr stable CVP20 , dobs2.5 and lasix gtt 5 mg/h A/P Acute hypercarbic resp failure - inderlying TITO / OHVS - Bipap 20/8 25 % , follow abg - will use BIPAP nocturnally and prn day time - will need outpatient sleep study and NIPPV CHUY - most likely cardio-renal syndrome - smal dose inotrops -and lasix gtt 09/20 --> good response with stable Cr, CVP 20 --> continue HTN - cardene gtt OFF Cardiomyopathy - ECHO 09/18 - EF 20-25% -w/up and meds as per cardiology Elev d-dimer - US LE neg fo dvt - lovenox full dose given scrotal swelling - as per RN exam - no cellulitis, WBC 14 , PCT 0.4 - riding to 0.6 added rocep hin , -- PER BEDSIDE MD to reassess Elevated LFT - ? liver congestion Positive for methamphetamine - Lines : (Central Line Necessity Reviewed) Will: + OG: Nutrition: po Analgesia: Anxiety/ delirium VTE Prophylaxis: juan carlos full dose Stress Ulcer Prophylaxis: na Plans in collaboration with bedside consultants and IM MDs. Discussed with RN to reach out if any questions or concerns A total of 33 minutes of critical care time was devoted to this patient today, required to treat and/or prevent further deterioration of critical care condition ( as above ) THOMAS FERRARI MD Sep 21, 2021 10:05
[2021-09-21 10:29] VITALS: BP 120/85
[2021-09-21] MEDS: FUROSEMIDE INJECTION 120 MG in D5W 100 ML IVPB 108 ML IV SCH ×2 (10:51→22:00)
[2021-09-21 14:10] VITALS: BP 128/74
--- NOTE | 2021-09-21 14:19 | Progress Note - Hospitalist ---
CARMEN HART A MED STUDENT 09/21/21 1419: Subjective HPI/CC On Admission Date Seen by Provider: Sep 21, 2021 Time Seen by Provider: 08:15 This is a 35 yo male who presented to the ED for scrotal swelling, orthopnea and SOA. Pt has no past medical hx and has not seen a physician in "many years". Pt reports he had two days of testicular swelling as well as generalized swelling and SOA, especially when lying flat. Pt reports his significant other noticed he was having trouble breathing at night. Pt denies previous sleep study or diagnosis of obstructive sleep apnea. Pt reports he takes no medications. Today, pt states he feels better than yesterday, but on exam his is visibly SOA and his oxygen saturation is 79% on 6L NC. Pt was placed on bipap and oxygen saturations increased to 94%. Pt denied fever, chills, chest pain, palpitations, N/V/D, urinary frequency or burning, blurry vision or headache. Subjective/Events-last exam Pt resting in bed on Bipap 25% this morning with good oxygen saturations. Pt reports his SOA is about the same as yesterday. Pt denies any fever, chills, cough, chest pain, N/V/D, weakness/numbness. RN took bipap off so pt could eat breakfast and he tolerated being on room air well. Review of Systems General: No Chills, No Fatigue HEENT: No Head Aches, No Visual Changes Pulmonary: Dyspnea; No Cough Cardiovascular: No: Chest Pain, Palpitations Gastrointestinal: No: Nausea, Vomiting, Abdominal Pain, Diarrhea, Constipation Genitourinary: No Dysuria, No Frequency Objective Exam Vital Signs Vital Signs Date Time Temp Pulse Resp B/P (MAP) Pulse Ox O2 Delivery O2 Flow Rate FiO2 09/21/21 14:10 99 23 98 25.00 09/21/21 13:36 NIV Bilevel 09/21/21 12:45 09/21/21 11:44 36.3 09/21/21 08:14 25 Capillary Refill : Less Than 3 Seconds General Appearance: No Apparent Distress, Obese HEENT: PERRL/EOMI Respiratory: Chest Non Tender, Wheezing (inspiratory wheezes bilaterally) Cardiovascular: No Murmur, Tachycardia Gastrointestinal: Non Tender, Abnormal Bowel Sounds (unable to auscultate d/t fluid on abdomen) Extremity: Pedal Edema (2+ pitting bilaterally in LE into abdomen) Neurologic/Psychiatric: Alert, Oriented x3, Normal Mood/Affect Skin: Normal Color, Warm/Dry Results/Procedures Lab Laboratory Tests 09/20/21 19:00 09/21/21 04:00 Patient resulted labs reviewed. Imaging: Reviewed Imaging Report Assessment/Plan Assessment and Plan Assess & Plan/Chief Complaint 35 yo super obese male who is being treated for fluid overload secondary to new onset heart failure complicated by acute tubular necrosis on chronic kidney disease. New onset heart failure with reduced EF Acute on chronic kidney injury Acute hypoxic respiratory failure with hypercapnia HTN Probable TITO NSTEMI Meth abuse Pt currently on bipap 25%, with adequate oxygen saturation. Nicardipine as needed for HTN. Furosemide drip decreased d/t adequate urine output. Goal for urine output is 150mL/hr. Will continue to monitor closely in ICU. HTN medication held as pt is normotensive. LENNY SMITH MD 09/21/21 1651: Subjective HPI/CC On Admission Time Seen by Provider: 09:20 Assessment/Plan Assessment and Plan Assess & Plan/Chief Complaint Continue IV Lasix gtt. Diiuresing well with improving renal function. Monitor closely. Critical Care: Critically Ill Patient Diagnosis/Problems Diagnosis/Problems (1) Acute HFrEF (heart failure with reduced ejection fraction) Status: Acute (2) Acute kidney injury superimposed on chronic kidney disease Status: Acute (3) Acute respiratory failure with hypoxia and hypercapnia Status: Acute (4) TITO (obstructive sleep apnea) Status: Acute (5) Super obese Status: Chronic Supervisory-Addendum Brief Verification & Attestation Participated in pt care: history, MDM, physical Personally performed: exam, history, MDM, supervision of care Care discussed with: Medical Student Procedures: n/a Results interpretation: Verified all documentation A medical student performed and documented this service in my presence. I reviewed and verified all information documented by the medical student and made modifications to such information, when appropriate. I personally performed the physical exam and medical decision making. CARMEN HART A MED STUDENT Sep 21, 2021 14:19 LENNY SMITH MD Sep 21, 2021 16:51
[2021-09-21 18:48] VITALS: BP 131/80
[2021-09-22 01:40] VITALS: BP 132/75
[2021-09-22] MEDS: DOBUTamine DRIP 250 ML IV SCH ×2 (02:05→16:01)
[2021-09-22 03:25] LABS: BASOPHILS % (AUTO) 0 % (0-10); EOSINOPHILS # (AUTO) 0.2 10^3/uL (0.0-0.3); EOSINOPHILS % (AUTO) 2 % (0-10); HEMATOCRIT 33 % (40-54); HEMOGLOBIN 10.1 g/dL (13.3-17.7); LYMPHOCYTES # (AUTO) 1.1 10^3/uL (1.0-4.0); LYMPHOCYTES % (AUTO) 13 % (12-44); MEAN CORPUSCULAR HEMOGLOBIN 21 pg (25-34); MEAN CORPUSCULAR HGB CONC 31 g/dL (32-36); MEAN CORPUSCULAR VOLUME 67 fL (80-99); MEAN PLATELET VOLUME 9.8 fL (9.0-12.2); MONOCYTES # (AUTO) 0.9 10^3/uL (0.0-1.0); MONOCYTES % (AUTO) 11 % (0-12); NEUTROPHILS # (AUTO) 6.5 10^3/uL (1.8-7.8); NEUTROPHILS % (AUTO) 74 % (42-75); PLATELET COUNT 434 10^3/uL (130-400); WHITE BLOOD COUNT 8.8 10^3/uL (4.3-11.0)
[2021-09-22 03:33] LABS: ALBUMIN 2.8 GM/DL (3.2-4.5); POTASSIUM 3.5 MMOL/L (3.6-5.0)
[2021-09-22 03:35] LABS: CALCIUM 8.4 MG/DL (8.5-10.1)
[2021-09-22 03:36] LABS: TOTAL PROTEIN 5.8 GM/DL (6.4-8.2)
[2021-09-22 03:38] LABS: BILIRUBIN,TOTAL 0.6 MG/DL (0.1-1.0)
[2021-09-22 03:39] LABS: CREATININE SERUM 2.39 MG/DL (0.60-1.30); PHOSPHORUS 4.1 MG/DL (2.3-4.7)
[2021-09-22 03:42] LABS: MAGNESIUM 1.9 MG/DL (1.6-2.4)
[2021-09-22] MEDS: MAGNESIUM 1 GM/100 ML IVPB 100 ML IV SCH (03:47)
[2021-09-22] MEDS: KCL 20 MEQ TAB (K-DUR) PO SCH (03:47)
[2021-09-22] MEDS: POTASSIUM CL 10MEQ/50ML IVPB 50 ML IV SCH (03:47)
[2021-09-22] MEDS ORDERED: KCL 20 MEQ TAB (K-DUR) PO ONE (06:00)
[2021-09-22] MEDS: ENOXAPARIN 150 MG/ML (LOVENOX) SYR SQ SCH ×2 (06:02→06:10)
[2021-09-22] MEDS: hydrALAZINE (APRESOLINE) 25 MG TAB PO SCH (06:02)
--- NOTE | 2021-09-22 06:12 | Tele-ICU Progress Note ---
Subjective Date Seen by a Provider: Sep 22, 2021 Time Seen by a Provider: 06:11 Subjective/Events-last exam called by bed site: oozing fromtlc/ hematuria + Sepsis Event Evaluation Height, Weight, BMI Height: '" Weight: lbs. oz. kg; 56.16 BMI Method: Exam Exam Patient acknowledged, consented, and participated in this virtual visit which wa s conducted using real time audio/video Vital Signs Date Time Temp Pulse Resp B/P (MAP) Pulse Ox O2 Delivery O2 Flow Rate FiO2 09/22/21 05:00 107 28 111/67 100 NIV Bilevel 30.00 09/22/21 04:00 101 26 119/83 100 NIV Bilevel 30.00 09/22/21 03:15 100 NIV Bilevel 30 09/22/21 03:10 36.5 NIV Bilevel 30.00 09/22/21 03:00 102 17 154/88 100 NIV Bilevel 30.00 09/22/21 02:05 96 132/75 09/22/21 02:00 104 29 149/89 99 NIV Bilevel 30.00 09/22/21 01:40 96 26 97 25.00 09/22/21 01:00 110 25 132/63 100 NIV Bilevel 30.00 09/22/21 01:00 110 09/22/21 00:55 NIV Bilevel 30.00 09/22/21 00:00 105 35 134/73 100 NIV Bilevel 35.00 09/21/21 23:45 36.7 NIV Bilevel 35.00 09/21/21 23:45 100 NIV Bilevel 35 09/21/21 23:00 101 32 135/72 100 NIV Bilevel 35.00 09/21/21 22:30 NIV Bilevel 35.00 09/21/21 22:00 103 19 127/66 95 NIV Bilevel 25.00 09/21/21 21:00 101 31 131/73 95 NIV Bilevel 25.00 09/21/21 20:24 37.0 09/21/21 20:00 108 23 114/71 100 NIV Bilevel 25.00 09/21/21 19:35 95 NIV Bilevel 25 09/21/21 19:00 101 20 122/71 100 NIV Bilevel 25.00 09/21/21 19:00 100 09/21/21 19:00 NIV Bilevel 25.00 09/21/21 18:48 88 25 97 25.00 09/21/21 18:45 103 124/70 97 NIV Bilevel 25.00 09/21/21 18:30 100 130/69 98 NIV Bilevel 25.00 09/21/21 18:15 102 40 124/71 98 NIV Bilevel 25.00 09/21/21 18:00 102 23 123/67 98 NIV Bilevel 25.00 09/21/21 17:45 103 11 127/75 100 NIV Bilevel 25.00 09/21/21 17:30 116 142/72 NIV Bilevel 25.00 09/21/21 17:15 118 20 147/76 94 NIV Bilevel 25.00 09/21/21 17:00 99 129/81 NIV Bilevel 25.00 09/21/21 16:45 110 11 104/69 98 NIV Bilevel 25.00 09/21/21 16:30 105 22 99 NIV Bilevel 25.00 09/21/21 16:28 98 143/83 09/21/21 16:20 118/69 NIV Bilevel 25.00 09/21/21 16:15 104 15 98 NIV Bilevel 25.00 09/21/21 16:00 36.9 09/21/21 16:00 105 9 115/65 98 NIV Bilevel 25.00 09/21/21 15:45 111 17 98 NIV Bilevel 25.00 09/21/21 15:40 107 20 100/55 98 NIV Bilevel 25.00 09/21/21 15:20 105 16 170/82 99 NIV Bilevel 25.00 09/21/21 15:15 100 27 98 NIV Bilevel 25.00 09/21/21 15:03 97 NIV Bilevel 25 09/21/21 15:00 96 24 143/83 98 NIV Bilevel 09/21/21 15:00 143/83 09/21/21 14:45 98 26 97 NIV Bilevel 25.00 09/21/21 14:40 101 22 148/85 98 NIV Bilevel 25.00 09/21/21 14:30 102 30 96 NIV Bilevel 25.00 09/21/21 14:20 101 33 157/86 98 NIV Bilevel 25.00 09/21/21 14:15 96 15 97 NIV Bilevel 25.00 09/21/21 14:10 99 23 98 25.00 09/21/21 14:00 102 31 128/74 98 NIV Bilevel 25.00 09/21/21 13:45 99 32 98 NIV Bilevel 25.00 09/21/21 13:40 101 18 121/76 99 NIV Bilevel 25.00 09/21/21 13:36 NIV Bilevel 25.00 09/21/21 13:30 103 27 121/76 97 Room Air 09/21/21 13:20 101 48 125/70 97 Room Air 09/21/21 13:00 101 09/21/21 13:00 116/77 09/21/21 12:45 103 27 97 Room Air 09/21/21 12:40 102 46 134/79 98 Room Air 09/21/21 12:36 99 Room Air 09/21/21 12:36 Room Air 09/21/21 12:20 112 26 128/65 95 Room Air 09/21/21 12:15 114 27 128/65 97 Room Air 09/21/21 12:00 101 17 132/79 99 Room Air 09/21/21 11:44 36.3 09/21/21 11:20 98 28 120/66 98 Room Air 09/21/21 11:00 99 20 131/61 95 Room Air 09/21/21 10:45 96 20 96 Room Air 09/21/21 10:30 100 34 97 09/21/21 10:29 98 26 97 25.00 09/21/21 10:20 101 25 120/85 98 Room Air 09/21/21 10:00 96 17 120/85 99 Room Air 09/21/21 10:00 96 29 125/79 99 Room Air 09/21/21 09:45 95 31 99 Room Air 09/21/21 09:40 95 30 138/87 99 Room Air 09/21/21 09:30 96 34 138/87 99 Room Air 09/21/21 09:20 95 30 135/85 96 Room Air 09/21/21 09:15 96 20 135/85 99 Room Air 09/21/21 09:14 NIV Bilevel 25.00 09/21/21 09:00 92 32 130/83 98 Room Air 09/21/21 09:00 92 12 135/85 99 Room Air 09/21/21 08:45 102 15 97 Room Air 09/21/21 08:40 114 16 131/96 93 Room Air 09/21/21 08:33 Room Air 09/21/21 08:30 101 18 131/96 100 Room Air 09/21/21 08:20 100 26 142/85 100 Room Air 09/21/21 08:14 100 NIV Bilevel 25 09/21/21 08:00 102 31 132/74 100 Room Air 09/21/21 08:00 94 14 131/96 100 Room Air 09/21/21 07:57 36.1 09/21/21 07:45 92 31 98 Room Air 09/21/21 07:33 91 133/82 09/21/21 07:30 92 30 143/92 99 Room Air 09/21/21 07:22 91 26 96 25.00 09/21/21 07:15 92 28 122/82 97 Room Air 09/21/21 07:00 93 27 147/93 98 09/21/21 07:00 93 22 142/85 100 NIV Bilevel 25.00 09/21/21 07:00 93 I & O 09/22/21 06:59 Intake Total 3565 ml Output Total 6135 ml Balance -2570 ml Height & Weight Height: '" Weight: lbs. oz. kg; 56.16 BMI Method: General Appearance: No Apparent Distress, Obese HEENT: PERRL/EOMI Neck: Full Range of Motion, Normal Inspection, Non Tender, Supple Respiratory: Chest Non Tender, Wheezing (inspiratory wheezes bilaterally) Cardiovascular: No Murmur, Tachycardia Capillary Refill: Less Than 3 Seconds Gastrointestinal: non tender, soft, no organomegaly, other (edema across lower abd) Extremity: Pedal Edema (2+ pitting bilaterally in LE into abdomen) Neurologic/Psychiatric: Alert, Oriented x3, Normal Mood/Affect Skin: Normal Color, Warm/Dry Lymphatic: No Adenopathy Results Lab Laboratory Tests 09/20/21 19:00 09/21/21 04:00 09/22/21 03:13 Assessment/Plan Assessment/Plan Bleeding while on lovenox: hold lovenox/ hb stable continue to monitor LUCIA RENEE MD Sep 22, 2021 06:12
--- NOTE | 2021-09-22 09:05 | Cardiology Progress Note ---
Progress Note-Cardiology Events since last exam Date Seen by Provider: Sep 22, 2021 Time Seen by Provider: 09:03 Events since last exam I am following him for heart failure with reduced ejection fraction, hyperte nsive emergency that improved, cardiomyopathy and elevated troponin. He remains in the intensive care unit. He was sitting up in bed watching television. He states his breathing is much improved. His peripheral edema has improved but is not resolved. He denies chest pain, palpitations, or syncope. Dr. Muñoz will be covering for the weekend. Certain portions of this document may have been dictated utilizing voice recognition technology. Inherent to this technology, typographical and gramm atical errors may exist. As much as I am diligent to identify and correct these mistakes, some errors may remain in the document. Vitals Last set of Vitals Signs Vital Signs 09/22/21 09/22/21 09/22/21 09/22/21 03:15 07:46 09:00 09:49 Temp 36.3 Pulse 100 Resp 23 B/P (MAP) 116/67 Pulse Ox 100 O2 Delivery NIV Bilevel O2 Flow Rate 30.00 FiO2 30 Labs Labs Laboratory Tests 09/22/21 03:13 Exam Vital Signs Vital Signs Date Time Temp Pulse Resp B/P (MAP) Pulse Ox O2 Delivery O2 Flow Rate FiO2 09/22/21 09:49 NIV Bilevel 30.00 09/22/21 09:00 100 23 116/67 100 09/22/21 07:46 36.3 09/22/21 03:15 30 Physical Exam General: Alert. No acute distress. He is morbidly obese. Eye: No xanthelasma. HENT: Normocephalic. Neck: Jugular venous pressure does not appear elevated. Respiratory: Lungs are clear to auscultation. Respirations are non-labored. Breath sounds are equal. Symmetrical chest wall expansion. Cardiovascular: Normal rate. Regular rhythm. Distant S1/S2. No murmur. No g allop. 2+ bilateral pretibial edema, improved. Gastrointestinal: Soft. Normal bowel sounds. Skin: Warm. Dry. Neurologic: Alert and oriented to person, place, time. Cranial nerves 3-11 grossly intact. Psychiatric: Cooperative. Appropriate mood & affect. Labs Laboratory Tests Test 09/22/21 03:13 Range/Units White Blood Count 8.8 4.3-11.0 10^3/uL Red Blood Count 4.92 4.30-5.52 10^6/uL Hemoglobin 10.1 L 13.3-17.7 g/dL Hematocrit 33 L 40-54 % Mean Corpuscular Volume 67 L 80-99 fL Mean Corpuscular Hemoglobin 21 L 25-34 pg Mean Corpuscular Hemoglobin Concent 31 L 32-36 g/dL Red Cell Distribution Width 16.3 H 10.0-14.5 % Platelet Count 434 H 130-400 10^3/uL Mean Platelet Volume 9.8 9.0-12.2 fL Immature Granulocyte % (Auto) 1 % Neutrophils (%) (Auto) 74 42-75 % Lymphocytes (%) (Auto) 13 12-44 % Monocytes (%) (Auto) 11 0-12 % Eosinophils (%) (Auto) 2 0-10 % Basophils (%) (Auto) 0 0-10 % Neutrophils # (Auto) 6.5 1.8-7.8 10^3/uL Lymphocytes # (Auto) 1.1 1.0-4.0 10^3/uL Monocytes # (Auto) 0.9 0.0-1.0 10^3/uL Eosinophils # (Auto) 0.2 0.0-0.3 10^3/uL Basophils # (Auto) 0.0 0.0-0.1 10^3/uL Immature Granulocyte # (Auto) 0.1 0.0-0.1 10^3/uL Sodium Level 137 135-145 MMOL/L Potassium Level 3.5 L 3.6-5.0 MMOL/L Chloride Level 102 98-107 MMOL/L Carbon Dioxide Level 25 21-32 MMOL/L Anion Gap 10 5-14 MMOL/L Blood Urea Nitrogen 31 H 7-18 MG/DL Creatinine 2.39 H 0.60-1.30 MG/DL Estimat Glomerular Filtration Rate 35 BUN/Creatinine Ratio 13 Glucose Level 117 H 70-105 MG/DL Calcium Level 8.4 L 8.5-10.1 MG/DL Corrected Calcium 9.4 8.5-10.1 MG/DL Phosphorus Level 4.1 2.3-4.7 MG/DL Magnesium Level 1.9 1.6-2.4 MG/DL Total Bilirubin 0.6 0.1-1.0 MG/DL Aspartate Amino Transf (AST/SGOT) 42 H 5-34 U/L Alanine Aminotransferase (ALT/SGPT) 103 H 0-55 U/L Alkaline Phosphatase 77 40-136 U/L Total Protein 5.8 L 6.4-8.2 GM/DL Albumin 2.8 L 3.2-4.5 GM/DL Diagnosis/Problems Diagnosis/Problems (1) Acute HFrEF (heart failure with reduced ejection fraction) Status: Acute Assessment & Plan: His chest x-rays have shown pulmonary congestion and he is short of breath but improving. His furosemide infusion was discontinued on 09/21. I suspect he still has a significant amount of volume overload. I will place him back on furosemide boluses 80 mg twice daily. His renal function is starting to improve. I will restart carvedilol which had been held due to the furosemide infusion. We will continue hydralazine and nitrates. He is not presently a good candidate for NORRIS inhibitor, ARB or spironolactone due to acute kidney injury. (2) Cardiomyopathy Assessment & Plan: His echocardiogram from 09/19 showed severe left ventricular systolic dysfunction with an estimated ejection fraction of 20-25%. Exact etiology unclear. As above, I lowered the dose of carvedilol and hydralazine due to borderline low blood pressures on 09/20. I started him on low-dose intravenous dobutamine on 09/20 to see if this may help improve his heart failure and renal function. At some point, we may need to consider further evaluation with a cardiac catheterization to exclude coronary artery disease as a possible etiology of the cardiomyopathy. However, we need to wait for his renal function to improve before giving him intravenous contrast. He will need to be on guideline directed medical therapy at the maximum tolerated doses for 2-3 months before we consider whether or not he needs defibrillator implantation. We may also want to consider a LifeVest prior to discharge. (3) Hypertensive emergency Status: Acute Assessment & Plan: He had markedly elevated blood pressures with evidence of acute heart failure at the time of admission. This has resolved. He is now on oral medication due to cardiomyopathy and heart failure as outlined above. (4) Elevated troponin Assessment & Plan: This was probably a type II non-ST elevation myocardial infarction due to supply/demand mismatch related to the hypertensive emergency on top of heart failure as well as some component of noncardiac troponin elevation due to the acute kidney injury. (5) Acute kidney injury Status: Acute Assessment & Plan: This will need to be monitored closely. We do not know his baseline renal function because he does not normally go to doctors. His creatinine was initially getting worse but now seems to be trending downwards. There do not appear to be any indications for dialysis at this point in time. (6) Morbid obesity Status: Acute Assessment & Plan: He needs to work on weight loss. If he cannot lose a significant amount of weight over the next 6-12 months, I would consider referring him for bariatric consultation at that time. JAH CANNON JR, MD Sep 22, 2021 09:05
[2021-09-22] MEDS: ISOSORBIDE MONONITRATE 60 MG (IMDUR) TAB PO SCH (09:45)
[2021-09-22] MEDS: FUROSEMIDE 40 MG/4 ML INJ (LASIX) IVP SCH ×2 (09:45→16:01)
--- NOTE | 2021-09-22 09:57 | Progress Note - Hospitalist ---
KATHLEENMIHIRCARMEN A MED STUDENT 09/22/21 0957: Subjective HPI/CC On Admission Date Seen by Provider: Sep 22, 2021 Time Seen by Provider: 08:00 This is a 35 yo male who presented to the ED for scrotal swelling, orthopnea and SOA. Pt has no past medical hx and has not seen a physician in "many years". Pt reports he had two days of testicular swelling as well as generalized swelling and SOA, especially when lying flat. Pt reports his significant other noticed he was having trouble breathing at night. Pt denies previous sleep study or diagnosis of obstructive sleep apnea. Pt reports he takes no medications. Today, pt states he feels better than yesterday, but on exam his is visibly SOA and his oxygen saturation is 79% on 6L NC. Pt was placed on bipap and oxygen saturations increased to 94%. Pt denied fever, chills, chest pain, palpitations, N/V/D, urinary frequency or burning, blurry vision or headache. Subjective/Events-last exam Pt up in bed on NC 2L with saturations at 100%. Pt denies fever, chills, cough, N/V/D, weakness, numbness. Pt reports he is still SOA, but his LE tightness is better. Discussed care with nurse who states he began to have hematuria and was oozing blood from central line site overnight. Overnight physician recommended holding dose of lovenox and aspirin. Cardiology this morning recommended restarting lovenox at half normal dose and restarting aspirin. Review of Systems General: No Chills, No Fatigue HEENT: No Head Aches, No Visual Changes Pulmonary: Dyspnea; No Cough Cardiovascular: No: Chest Pain, Palpitations Gastrointestinal: No: Nausea, Vomiting, Abdominal Pain Genitourinary: No Dysuria, No Frequency Neurological: No: Weakness, Numbness Objective Exam Vital Signs Vital Signs Date Time Temp Pulse Resp B/P (MAP) Pulse Ox O2 Delivery O2 Flow Rate FiO2 09/22/21 16:01 103 150/92 09/22/21 16:00 36.0 09/22/21 15:08 27 97 30.00 09/22/21 15:05 NIV Bilevel 30 Capillary Refill : Less Than 3 Seconds General Appearance: No Apparent Distress, WD/WN HEENT: PERRL/EOMI Neck: Other (central line nonerythematous, but oozing blood) Respiratory: No Accessory Muscle Use, No Respiratory Distress, Decreased Breath Sounds Cardiovascular: No Murmur, Tachycardia Gastrointestinal: Normal Bowel Sounds, Non Tender, Soft Extremity: Normal Capillary Refill, Pedal Edema (2+ pitting edema in LE to level of abdomen) Neurologic/Psychiatric: Alert, Oriented x3, Normal Mood/Affect Skin: Normal Color, Warm/Dry Results/Procedures Lab Laboratory Tests 09/22/21 03:13 Patient resulted labs reviewed. Imaging: Reviewed Imaging Report Assessment/Plan Assessment and Plan Assess & Plan/Chief Complaint 35 yo super obese male who is being treated for fluid overload secondary to new onset heart failure complicated by acute tubular necrosis on chronic kidney disease. New onset heart failure with reduced EF -IV lasix 80 mg BID per cardiology -Dobutamine, Coreg and Imdur -Urine output goal 150ml/hr Acute on chronic kidney injury -Improving Acute hypoxic respiratory failure with hypercapnia -Bipap 25% while sleeping and 3L NC when awake Bleeding from Central Line site/Hematuria -Hold Lovenox and aspirin, restart for night time dose on 09/22 -60 BID per cardiology and pharmacy HTN -Normotensive Probable TITO -Bipap 25% with good saturations NSTEMI Meth abuse LENNY SMITH MD 09/22/21 1904: Subjective HPI/CC On Admission Time Seen by Provider: 10:00 Assessment/Plan Assessment and Plan Assess & Plan/Chief Complaint Diuresing well. Possibly post-ATN diuresis, requiring minimal Lasix. Remains severely fluid overloaded. Kidney function improving. Continue to monitor closely. Critical Care: Critically Ill Patient Diagnosis/Problems Diagnosis/Problems (1) Acute HFrEF (heart failure with reduced ejection fraction) Status: Acute (2) Acute kidney injury superimposed on chronic kidney disease Status: Acute (3) Acute respiratory failure with hypoxia and hypercapnia Status: Acute (4) TITO (obstructive sleep apnea) Status: Acute (5) Super obese Status: Chronic (6) Methamphetamine abuse Status: Acute (7) Hypertensive emergency Status: Resolved Resolution Date/Time: 09/22/21 @ 19:03 (8) NSTEMI (non-ST elevation myocardial infarction) Status: Acute Supervisory-Addendum Brief Verification & Attestation Participated in pt care: history, MDM, physical Personally performed: exam, history, MDM, supervision of care Care discussed with: Medical Student Procedures: n/a Results interpretation: Verified all documentation A medical student performed and documented this service in my presence. I reviewed and verified all information documented by the medical student and made modifications to such information, when appropriate. I personally performed the physical exam and medical decision making. CARMEN HART MED STUDENT Sep 22, 2021 09:57 LENNY SMITH MD Sep 22, 2021 19:04
--- NOTE | 2021-09-22 10:11 | Tele-ICU Progress Note ---
Subjective Date Seen by a Provider: Sep 22, 2021 Time Seen by a Provider: 10:11 Sepsis Event Evaluation Height, Weight, BMI Height: '" Weight: lbs. oz. kg; 56.16 BMI Method: Exam Exam Patient acknowledged, consented, and participated in this virtual visit which was conducted using real time audio/video Vital Signs Date Time Temp Pulse Resp B/P (MAP) Pulse Ox O2 Delivery O2 Flow Rate FiO2 09/22/21 09:49 NIV Bilevel 30.00 09/22/21 09:00 100 23 116/67 100 Nasal Cannula 3.00 09/22/21 08:42 100 Nasal Cannula 3.00 09/22/21 08:00 106 28 136/80 100 Nasal Cannula 3.00 09/22/21 07:46 36.3 09/22/21 07:00 101 124/77 Nasal Cannula 3.00 09/22/21 07:00 102 09/22/21 06:19 Nasal Cannula 3.00 09/22/21 06:00 112 28 125/68 100 NIV Bilevel 30.00 09/22/21 05:00 107 28 111/67 100 NIV Bilevel 30.00 09/22/21 04:00 101 26 119/83 100 NIV Bilevel 30.00 09/22/21 03:15 100 NIV Bilevel 30 09/22/21 03:10 36.5 NIV Bilevel 30.00 09/22/21 03:00 102 17 154/88 100 NIV Bilevel 30.00 09/22/21 02:05 96 132/75 09/22/21 02:00 104 29 149/89 99 NIV Bilevel 30.00 09/22/21 01:40 96 26 97 25.00 09/22/21 01:00 110 25 132/63 100 NIV Bilevel 30.00 09/22/21 01:00 110 09/22/21 00:55 NIV Bilevel 30.00 09/22/21 00:00 105 35 134/73 100 NIV Bilevel 35.00 09/21/21 23:45 36.7 NIV Bilevel 35.00 09/21/21 23:45 100 NIV Bilevel 35 09/21/21 23:00 101 32 135/72 100 NIV Bilevel 35.00 09/21/21 22:30 NIV Bilevel 35.00 09/21/21 22:00 103 19 127/66 95 NIV Bilevel 25.00 09/21/21 21:00 101 31 131/73 95 NIV Bilevel 25.00 09/21/21 20:24 37.0 09/21/21 20:00 108 23 114/71 100 NIV Bilevel 25.00 09/21/21 19:35 95 NIV Bilevel 25 09/21/21 19:00 101 20 122/71 100 NIV Bilevel 25.00 09/21/21 19:00 100 09/21/21 19:00 NIV Bilevel 25.00 09/21/21 18:48 88 25 97 25.00 09/21/21 18:45 103 124/70 97 NIV Bilevel 25.00 09/21/21 18:30 100 130/69 98 NIV Bilevel 25.00 09/21/21 18:15 102 40 124/71 98 NIV Bilevel 25.00 09/21/21 18:00 102 23 123/67 98 NIV Bilevel 25.00 09/21/21 17:45 103 11 127/75 100 NIV Bilevel 25.00 09/21/21 17:30 116 142/72 NIV Bilevel 25.00 09/21/21 17:15 118 20 147/76 94 NIV Bilevel 25.00 09/21/21 17:00 99 129/81 NIV Bilevel 25.00 09/21/21 16:45 110 11 104/69 98 NIV Bilevel 25.00 09/21/21 16:30 105 22 99 NIV Bilevel 25.00 09/21/21 16:28 98 143/83 09/21/21 16:20 118/69 NIV Bilevel 25.00 09/21/21 16:15 104 15 98 NIV Bilevel 25.00 09/21/21 16:00 36.9 09/21/21 16:00 105 9 115/65 98 NIV Bilevel 25.00 09/21/21 15:45 111 17 98 NIV Bilevel 25.00 09/21/21 15:40 107 20 100/55 98 NIV Bilevel 25.00 09/21/21 15:20 105 16 170/82 99 NIV Bilevel 25.00 09/21/21 15:15 100 27 98 NIV Bilevel 25.00 09/21/21 15:03 97 NIV Bilevel 25 09/21/21 15:00 96 24 143/83 98 NIV Bilevel 09/21/21 15:00 143/83 09/21/21 14:45 98 26 97 NIV Bilevel 25.00 09/21/21 14:40 101 22 148/85 98 NIV Bilevel 25.00 09/21/21 14:30 102 30 96 NIV Bilevel 25.00 09/21/21 14:20 101 33 157/86 98 NIV Bilevel 25.00 09/21/21 14:15 96 15 97 NIV Bilevel 25.00 09/21/21 14:10 99 23 98 25.00 09/21/21 14:00 102 31 128/74 98 NIV Bilevel 25.00 09/21/21 13:45 99 32 98 NIV Bilevel 25.00 09/21/21 13:40 101 18 121/76 99 NIV Bilevel 25.00 09/21/21 13:36 NIV Bilevel 25.00 09/21/21 13:30 103 27 121/76 97 Room Air 09/21/21 13:20 101 48 125/70 97 Room Air 09/21/21 13:00 101 09/21/21 13:00 116/77 09/21/21 12:45 103 27 97 Room Air 09/21/21 12:40 102 46 134/79 98 Room Air 09/21/21 12:36 99 Room Air 09/21/21 12:36 Room Air 09/21/21 12:20 112 26 128/65 95 Room Air 09/21/21 12:15 114 27 128/65 97 Room Air 09/21/21 12:00 101 17 132/79 99 Room Air 09/21/21 11:44 36.3 09/21/21 11:20 98 28 120/66 98 Room Air 09/21/21 11:00 99 20 131/61 95 Room Air 09/21/21 10:45 96 20 96 Room Air 09/21/21 10:30 100 34 97 09/21/21 10:29 98 26 97 25.00 09/21/21 10:20 101 25 120/85 98 Room Air I & O 09/22/21 07:00 Intake Total 3640 ml Output Total 6135 ml Balance -2495 ml Height & Weight Height: '" Weight: lbs. oz. kg; 56.16 BMI Method: General Appearance: No Apparent Distress, WD/WN HEENT: PERRL/EOMI Neck: Other (central line nonerythematous, but oozing blood) Respiratory: No Accessory Muscle Use, No Respiratory Distress, Decreased Breath Sounds Cardiovascular: No Murmur, Tachycardia Capillary Refill: Less Than 3 Seconds Gastrointestinal: non tender, soft, no organomegaly, other (edema across lower abd) Extremity: Normal Capillary Refill, Pedal Edema (2+ pitting edema in LE to level of abdomen) Neurologic/Psychiatric: Alert, Oriented x3, Normal Mood/Affect Skin: Normal Color, Warm/Dry Lymphatic: No Adenopathy Results Lab Laboratory Tests 09/20/21 19:00 09/21/21 04:00 09/22/21 03:13 Assessment/Plan Assessment/Plan Tele-ICU Physician , Progress Note ) Available chart/ vitals / labs / Images reviewed Video assessment done using teleICU camera, rest of exam as per RN Discussed with RN , EXAM PER RN Events overnight : hypotensive Afebrile FiO2 - I/O = neg 3l Drips: nicardipine OFF, lasix 1.5 dobs 2.5 Pressors: , hemodynamically stable Consultants: linda Hospital course: - adnitted with scrotal edema , anasarca 09/19 - TITO - > BIPAP, EF 20 % 09/20 - worsenign Cr , CVP16 - started on dobs2.5 and lasix gtt 09/21 - Bipap 25% , UO>5L - Cr stable CVP20 , dobs2.5 and lasix gtt 5 mg/h 09/22 dopa , OFF lasix A/P Acute hypercarbic resp failure - inderlying TITO / [facility] - Bipap 20/8 25 % , at night , 3 L nc day - will use BIPAP nocturnally and prn day time - will need outpatient sleep study and NIPPV CHUY - most likely cardio-renal syndrome - smal dose inotrops -and lasix gtt 09/20 --> 09/22 changed to IV push good response with stable Cr, CVP 20 --> 16, to continue on dopa 2.5 HTN - cardene gtt OFF Cardiomyopathy - ECHO 09/18 - EF 20-25% -w/up and meds as per cardiology Elev d-dimer - US LE neg fo dvt - lovenox full dose given - changed 09/22 to 60 bid with hematuutia , bleeding arownd central line scrotal swelling - as per RN exam - no cellulitis, WBC 14 , PCT 0.4 - riding to 0.6 added rocephin , -- PER BEDSIDE MD to reassess Elevated LFT - ? liver congestion Positive for methamphetamine - Lines : (Central Line Necessity Reviewed) Will: + OG: Nutrition: po Analgesia: Anxiety/ delirium VTE Prophylaxis: juan carlos 60 bid Stress Ulcer Prophylaxis: na Plans in collaboration with bedside consultants and IM MDs. Discussed with RN to reach out if any questions or concerns A total of 33 minutes of critical care time was devoted to this patient today, required to treat and/or prevent further deterioration of critical care condition ( as above ) THOMAS FERRARI MD Sep 22, 2021 10:11
[2021-09-22] MEDS: ASPIRIN 81 MG CHEW (CHILDREN'S ASA) PO SCH (10:17)
[2021-09-22] MEDS: ENOXAPARIN 60 MG/0.6 ML (LOVENOX) SYR SQ SCH (10:18)
--- NOTE | 2021-09-22 11:03 | Occupational Therapy Eval ---
OT Evaluation-General/PLF Medical Diagnosis Admission Date Sep 18, 2021 at 16:12 Medical Diagnosis: hypertensive emergency, CHUY, elevated troponin Onset Date: Sep 18, 2021 Therapy Diagnosis Therapy Diagnosis: decreased ADL status Precautions Precautions/Isolations: Fall Prevention, Standard Precautions Referral Physician: Markos Referral Reason: Evaluation/Treatment Medical History Additional Medical History cardiomyopathy, renal failure, chronic edema/swelling Current History ED due to scrotal swelling, orthopnea and SOA Social History Home: [facility] Current Living Status: Significant Other ADL-Prior Level of Function SCALE: Activities may be completed with or without assistive devices. 8-Maynytnprr-eqqlyic completes the activity by him/herself with no assistance from a helper. 5-Set-up or Clean-up Assistance-helper sets up or cleans up; patient completes activity. [place] assists only prior to or following the activity. 4-Supervision or Touching Assistance-helper provides verbal cues and/or touching/steadying and/or contact guard assistance as patient completes activity. Assistance may be provided throughout the activity or intermittently. 3-Partial/Moderate Assistance-helper does LESS THAN HALF the effort. [place] lifts, holds or supports trunk or limbs, but provides less than half the effort. 2-Substantial/Maximal Assistance-helper does MORE THAN HALF the effort. [place] lifts or holds trunk or limbs and provides more than half the effort. 2-Begodgcul-vmplej does ALL the effort. Patient does none of the effort to complete the activity. Or, the assistance of 2 or more helpers is required for the patient to complete the activity. If activity was not attempted, code reason: 7-Patient Refused. 9-Not Applicable-not attempted and the patient did not perform the activity bef ore the current illness, exacerbation or injury. 10-Not Attempted due to Environmental Limitations-(lack of equipment, weather r estraints, etc.). 88-Not Attempted due to Medical Conditions or Safety Concerns. ADL PLOF Comments Pt reports independent with all ADLs and functional mobility at PLOF. States he requires increased time with socks/shoes and washing LEs but he was able to do it. His SO is able to assist if needed. Self Care: Independent Functional Cognition: Independent OT Current Status Subjective Pt in bed, agreeable to OT tx. Nurse states pt OK to switch from BiPAP to NC at 3L. Pt's SPO2 at 100% throughout session. Pt reports pain in scrotal area, does not verbalize pain rating. Mental Status/Objective Patient Orientation: Person, Place, Situation Attachments: Central Line, Will Catheter, Oxygen (3L) Current Upper Extremity ROM WFL Upper Extremity Strength WFL ADL-Treatment Eating (QC): 6 (Per pt report) Oral Hygiene (QC): 5 (set up per pt report) Shower/Bathe Self (QC): 3 (Pt completed upper body sponge bath. Assistance would be required to wash BLEs lower legs/feet.) Upper Body Dressing (QC): 5 (set up with hospital gown.) On/Off Footwear (QC): 1 (Per clincial judgment due to scrotal swelling and pain.) Toileting Hygiene (QC): 1 (catheter) Other Treatments Pt laying in bed. Pt transitioned from BiPAP to 3L NC with nursing instruction. Pt transferred supine to sit EOB with min A with upper body. Pt sat EOB as OT positioned recliner and maneuvered lines. Pt transferred from EOB to recliner with SBA. Once at recliner, pt completed partial sponge bath, washing upper body and periarea. Pt changed hospital gown. Post tx, pt up in recliner, call light in reach and all needs met. OT Monitor Worker Goals Mcc Goals Time Frame: Sep 29, 2021 Eating (QC): 6 Oral Hygiene (QC): 6 Toileting Hygiene (QC): 6 Shower/Bathe Self (QC): 4 Upper Body Dressing (QC): 5 Lower Body Dressing (QC): 4 On/Off Footwear (QC): 4 Additional Goals: 1-Demonstrate ADL Tasks, 2-Verbalize Understanding, 3- ImproveStrength/Lenhco 1=Demonstrate adherence to instructed precautions during ADL tasks. 2=Patient will verbalize/demonstrate understanding of assistive devices/modifications for ADL. 3=Patient will improve strength/tolerance for activity to enable patient to perform ADL's. OT Education/Plan Problem List/Assessment Assessment: Decreased Activ Tolerance, Decreased UE Strength, Impaired Funct Balance, Impaired I ADL's, Impaired Self-Care Skills Pt would benefit from short term skilled OT services in order to increase independence with ADLs, and education on AE for LE dressing in order to pt to return home at maximum LOF Discharge Recommendations Plan/Recommendations: Continue POC Treatment Plan/Plan of Care Patient would benefit from OT for education, treatment and training to promote independence in ADL's, mobility, safety and/or upper extremity function for ADL's. Plan of Care: ADL Retraining, Functional Mobility, UE Funct Exercise/Act Treatment Duration: Sep 29, 2021 Frequency: 3 times per week (3-5 times per week) Estimated Hrs Per Day: .25 hour per day Time/GCodes Start Time: 10:32 Stop Time: 10:45 Total Time Billed (hr/min): 13 Billed Treatment Time 1, HECTOR HARRIS OT Sep 22, 2021 11:03
--- NOTE | 2021-09-22 11:11 | Physical Therapy Evaluation ---
PT Evaluation-General Medical Diagnosis Admission Date Sep 18, 2021 at 16:12 Medical Diagnosis: hypertensive emergency/CHUY/elevated troponin Onset Date: Sep 18, 2021 Therapy Diagnosis Therapy Diagnosis: debility Precautions Precautions/Isolations: Fall Prevention, Standard Precautions Referral Physician: Markos Reason for Referral: Evaluation/Treatment Medical History Additional Medical History super obesity Current History ER secondary to SOA, abdominal and scrotal edema Reviewed History: Yes Social History Home: Single Level Current Living Status: Significant Other Prior Prior Level of Function SCALE: Activities may be completed with or without assistive devices. 9-Wboswhkqrp-dytszxp completes the activity by him/herself with no assistance from a helper. 5-Set-up or Clean-up Assistance-helper sets up or cleans up; patient completes activity. [place] assists only prior to or following the activity. 4-Supervision or Touching Assistance-helper provides verbal cues and/or touching/steadying and/or contact guard assistance as patient completes activity. Assistance may be provided throughout the activity or intermittently. 3-Partial/Moderate Assistance-helper does LESS THAN HALF the effort. [place] lifts, holds or supports trunk or limbs, but provides less than half the effort. 2-Substantial/Maximal Assistance-helper does MORE THAN HALF the effort. [place] lifts or holds trunk or limbs and provides more than half the effort. 5-Ntbxvkdco-mpzkyv does ALL the effort. Patient does none of the effort to complete the activity. Or, the assistance of 2 or more helpers is required for the patient to complete the activity. If activity was not attempted, code reason: 7-Patient Refused. 9-Not Applicable-not attempted and the patient did not perform the activity before the current illness, exacerbation or injury. 10-Not Attempted due to Environmental Limitations-(lack of equipment, weather restraints, etc.). 88-Not Attempted due to Medical Conditions or Safety Concerns. Bed Mobility: 6 Transfers (B,C,W/C): 6 Gait: 6 Indoor Mobility (Ambulation): Independent PT Evaluation-Current Subjective Patient reluctantly agrees to PT due to scrotal pain. Pain Numeric Pain Scale: 10-Worst Possible Pain Location: Soft Tissue Location Body Site: Genital Pain Description: Pressure Objective Patient Orientation: Normal For Age Attachments: Oxygen, Will Catheter, IV ROM/Strength ROM Lower Extremities limited due to obesity Strength Lower Extremities 4-/5 grossly bilateral LE ( no formal testing) Integumentary/Posture Integumentary refer to nursing notes Bladder Incontinence: Will Cath Neuromuscular (Tone, Coordination, Reflexes) grossly intact Sensory Vision: Functional Hearing: Functional Transfers Sit to Stand (QC): 6 Gait Mode of Locomotion: Walk Anticipated Mode of Locomotion: Walk Balance Sitting Static: Normal Sitting Dynamic: Normal Standing Static: Normal Standing Dynamic: Normal Assessment/Needs Patient more concerned with scrotal edema and pain than mobility. Patient is independent with sit to stand transfers but declined to ambulate due to scrotal pain. PT did place 6" anitra wrap under scrotum for patient to lift up and out of the way. Patient was very pleased with this technique and reports relief. RN notified. No skilled PT indicated. Rehab Potential: Fair PT Plan Treatment/Plan Treatment Plan: Discontinue PT, goals met Treatment Duration: Sep 22, 2021 Frequency: 1 time per week Estimated Hrs Per Day: .25 hour per day Patient and/or Family Agrees t: Yes Time/GCodes Time In: 1040 Time Out: 1051 Total Billed Treatment Time: 11 Total Billed Treatment 1 visit EVLow 11 min ASUNCION TY PT Sep 22, 2021 11:11
[2021-09-22] MEDS: niCARdipine 50 MG/NS 250 ML IV DRIP IV SCH ×2 (12:13)
[2021-09-22 15:08] VITALS: BP 150/92
[2021-09-22] MEDS ORDERED: ENOXAPARIN 150 MG/ML (LOVENOX) SYR SQ SCH (17:00)
[2021-09-22 18:53] VITALS: BP 96/61
[2021-09-22] MEDS ORDERED: morphine INJ 4 MG/ML 1 ML (VIAL/SYRINGE) ONE (20:22)
[2021-09-22] MEDS: morphine INJ 4 MG/ML 1 ML (VIAL/SYRINGE) IVP PRN (20:33)
[2021-09-22 20:48] LABS: CALCIUM 8.4 MG/DL (8.5-10.1); CREATININE SERUM 2.24 MG/DL (0.60-1.30); POTASSIUM 3.6 MMOL/L (3.6-5.0)
[2021-09-22 21:35] LABS: HEMOGLOBIN 9.8 g/dL (13.3-17.7)
[2021-09-23 00:40] VITALS: BP 150/92
[2021-09-23] MEDS: morphine INJ 4 MG/ML 1 ML (VIAL/SYRINGE) IVP PRN ×2 (02:02→20:35)
[2021-09-23] MEDS: DOBUTamine DRIP 250 ML IV SCH ×3 (02:03→22:28)
[2021-09-23] MEDS: niCARdipine 50 MG/NS 250 ML IV DRIP IV SCH ×6 (02:03→18:38)
[2021-09-23 02:47] VITALS: BP 141/61
[2021-09-23 06:00] LABS: BASOPHILS % (AUTO) 0 % (0-10); EOSINOPHILS # (AUTO) 0.2 10^3/uL (0.0-0.3); EOSINOPHILS % (AUTO) 3 % (0-10); HEMATOCRIT 33 % (40-54); LYMPHOCYTES # (AUTO) 1.1 10^3/uL (1.0-4.0); LYMPHOCYTES % (AUTO) 15 % (12-44); MEAN CORPUSCULAR HEMOGLOBIN 21 pg (25-34); MEAN CORPUSCULAR HGB CONC 31 g/dL (32-36); MEAN CORPUSCULAR VOLUME 67 fL (80-99); MEAN PLATELET VOLUME 9.9 fL (9.0-12.2); MONOCYTES % (AUTO) 14 % (0-12); NEUTROPHILS # (AUTO) 5.1 10^3/uL (1.8-7.8); NEUTROPHILS % (AUTO) 68 % (42-75); PLATELET COUNT 389 10^3/uL (130-400); WHITE BLOOD COUNT 7.5 10^3/uL (4.3-11.0)
[2021-09-23 06:27] LABS: ALBUMIN 2.8 GM/DL (3.2-4.5); BILIRUBIN,TOTAL 0.5 MG/DL (0.1-1.0); CALCIUM 8.6 MG/DL (8.5-10.1); CREATININE SERUM 2.03 MG/DL (0.60-1.30); MAGNESIUM 1.8 MG/DL (1.6-2.4); PHOSPHORUS 3.6 MG/DL (2.3-4.7); POTASSIUM 3.6 MMOL/L (3.6-5.0); TOTAL PROTEIN 5.9 GM/DL (6.4-8.2)
[2021-09-23] MEDS: POTASSIUM CL 10MEQ/50ML IVPB 50 ML IV SCH (06:35)
[2021-09-23] MEDS: MAGNESIUM 1 GM/100 ML IVPB 100 ML IV SCH (06:36)
[2021-09-23] MEDS: KCL 20 MEQ TAB (K-DUR) PO SCH (06:43)
[2021-09-23] MEDS: FUROSEMIDE 40 MG/4 ML INJ (LASIX) IVP SCH ×2 (06:59→18:40)
[2021-09-23] MEDS: ASPIRIN 81 MG CHEW (CHILDREN'S ASA) PO SCH (08:34)
[2021-09-23] MEDS: ISOSORBIDE MONONITRATE 60 MG (IMDUR) TAB PO SCH (08:34)
--- NOTE | 2021-09-23 08:48 | Tele-ICU Progress Note ---
Progress Note video rounds completed 35 y/o morbidly obese with cardiomyopathy and HF with reduced EF PE: HR 105 NSR BP 129/81 Cardiology on consult. Focused Exam Height, Weight, BMI Height: '" Weight: lbs. oz. kg; 56.16 BMI Method: Laboratory Tests 09/22/21 19:30 09/22/21 20:45 09/23/21 05:42 Results/Procedures Labs Laboratory Tests 09/22/21 03:13 09/22/21 19:30 09/22/21 20:45 09/23/21 05:42 Patient resulted labs reviewed. Imaging: Reviewed Imaging Report MARIAM COX MD Sep 23, 2021 08:48
--- NOTE | 2021-09-23 09:48 | Cardiology Progress Note ---
Subjective Date Seen by Provider: Sep 23, 2021 Time Seen by Provider: 09:44 Subjective/Events-last exam Patient is laying down in bed, on BiPAP, feeling better. Reporting improvement in the swelling. Review of Systems General: No Chills, No Night Sweats; Fatigue, Malaise; No Appetite, No Other HEENT: No Head Aches, No Visual Changes, No Eye Pain, No Ear Pain, No Dy sphasia, No Sinus Congestion, No Post Nasal Drip, No Sore Throat, No Other Pulmonary: Dyspnea; No Cough, No Pleuritic Chest Pain, No Other Cardiovascular: No: Chest Pain, Palpitations, Orthopnea, Paroxysmal Noc. Dyspnea, Edema, Lt Headedness, Other Objective-Cardiology Exam Last Set of Vital Signs Vital Signs 09/23/21 09/23/21 09/23/21 07:42 08:30 09:00 Temp 37.0 Pulse 105 Resp 11 B/P (MAP) 108/72 Pulse Ox 99 O2 Delivery Nasal Cannula O2 Flow Rate 3.00 FiO2 21 I&O Intake and Output 09/23/21 00:00 Intake Total 2430 ml Output Total 11992 ml Balance -9790 ml Intake Oral 1930 ml IV Total 500 ml Output Urine Total 42688 ml General: Alert, Oriented X3, Cooperative HEENT: Atraumatic, PERRLA Neck: Supple, No JVD, No Thyromegaly Lungs: Clear to Auscultation, Normal Air Movement Heart: Regular Rate, Normal S1, Normal S2, No Murmurs Abdomen: Normal Bowel Sounds, Soft, No Tenderness, No Hepatosplenomegaly, No Masses Extremities: No Clubbing, No Cyanosis, No Edema, Normal Pulses, No Tenderness/Swelling Skin: No Rashes, No Breakdown, No Significant Lesion Neuro: Normal Gait, Normal Speech, Strength at 5/5 X4 Ext, Normal Tone, Sensation Intact Psych/Mental Status: Mental Status NL, Mood NL Results Lab Laboratory Tests 09/22/21 19:30 09/22/21 20:45 09/23/21 05:42 A/P-Cardiology Admission Diagnosis Congestive heart failure Acute renal failure Hypertensive emergency Acute respiratory failure Assessment/Plan Congestive heart failure, acute on chronic left ventricular systolic dysfunction with volume overload, responding to diuretics. Unknown etiology, could be secondary to coronary artery disease, cardiac catheterization has been postponed due to his renal insufficiency. Questionable coronary artery disease as a cause for his congestive heart failure, managed by Dr. Reyes, considering cardiac catheterization once his renal function are better Increased risk of sudden , planning to have a LifeVest prior to discharge and possible ICD if he did not respond to treatment Hypertensive emergency, blood pressure is better. Continue to monitor Acute on chronic renal failure, renal function improving slowly. Continue to monitor Morbid obesity, BMI 53, we discussed weight loss. History of methamphetamine abuse. High risk for sleep apnea EMPERATRIZ VELA MD Sep 23, 2021 09:48
--- NOTE | 2021-09-23 13:07 | Progress Note - Hospitalist ---
CARMEN HART A MED STUDENT 09/23/21 1307: Subjective HPI/CC On Admission Date Seen by Provider: Sep 23, 2021 Time Seen by Provider: 08:30 This is a 35 yo male who presented to the ED for scrotal swelling, orthopnea and SOA. Pt has no past medical hx and has not seen a physician in "many years". Pt reports he had two days of testicular swelling as well as generalized swelling and SOA, especially when lying flat. Pt reports his significant other noticed he was having trouble breathing at night. Pt denies previous sleep study or diagnosis of obstructive sleep apnea. Pt reports he takes no medications. Today, pt states he feels better than yesterday, but on exam his is visibly SOA and his oxygen saturation is 79% on 6L NC. Pt was placed on bipap and oxygen saturations increased to 94%. Pt denied fever, chills, chest pain, palpitations, N/V/D, urinary frequency or burning, blurry vision or headache. Subjective/Events-last exam Pt lying in bed asleep, but easy to wake. Pt reports overnight he had right forearm swelling and pain, but this has subsided. Pt denies fever, chills, chest pain, palpitations or N/V/D. Pt reports his SOA has improved. Review of Systems General: No Chills, No Fatigue HEENT: No Head Aches, No Visual Changes Pulmonary: Dyspnea; No Cough Cardiovascular: No: Chest Pain, Palpitations Gastrointestinal: No: Nausea, Vomiting, Abdominal Pain Genitourinary: No Dysuria, No Frequency Neurological: No: Weakness, Numbness Objective Exam Vital Signs Vital Signs Date Time Temp Pulse Resp B/P (MAP) Pulse Ox O2 Delivery O2 Flow Rate FiO2 09/23/21 12:55 106 09/23/21 12:00 36.5 09/23/21 12:00 25 106/57 100 Nasal Cannula 3.00 09/23/21 08:30 21 Capillary Refill : Less Than 3 Seconds General Appearance: No Apparent Distress, Obese HEENT: PERRL/EOMI Respiratory: Chest Non Tender, No Accessory Muscle Use, Decreased Breath Sounds, Rhonci Cardiovascular: No Murmur, Tachycardia Gastrointestinal: Normal Bowel Sounds, Non Tender, Soft, Other (2+ pitting edema in abdomen) Extremity: Normal Capillary Refill, Non Tender, Pedal Edema (2+ pitting bilaterally) Neurologic/Psychiatric: Alert, Oriented x3, Normal Mood/Affect Skin: Normal Color, Warm/Dry Results/Procedures Lab Laboratory Tests 09/22/21 19:30 09/22/21 20:45 09/23/21 05:42 Patient resulted labs reviewed. Imaging: Reviewed Imaging Report Assessment/Plan Assessment and Plan Assess & Plan/Chief Complaint 35 yo super obese male who is being treated for fluid overload secondary to new onset heart failure complicated by acute tubular necrosis on chronic kidney disease. New onset heart failure with reduced EF -IV lasix 80 mg BID per cardiology as pt is still fluid overloaded -Dobutamine, Coreg and Imdur -Urine output goal 150ml/hr -Down 10kg since admission, good urine output Acute on chronic kidney injury -Improving Acute hypoxic respiratory failure with hypercapnia -Bipap 21% while sleeping and 3L NC when awake Bleeding from Central Line site/Hematuria -Hold Lovenox and aspirin HTN -Normotensive Probable TITO -Bipap 21% with good saturations NSTEMI Meth abuse LENNY SMITH MD 09/23/21 1908: Subjective HPI/CC On Admission Time Seen by Provider: 10:15 Assessment/Plan Assessment and Plan Assess & Plan/Chief Complaint Diuresing well. Kidney function improving. Continue diuresis. Critical Care: Critically Ill Patient Diagnosis/Problems Diagnosis/Problems (1) Acute HFrEF (heart failure with reduced ejection fraction) Status: Acute (2) Acute kidney injury superimposed on chronic kidney disease Status: Acute (3) Acute respiratory failure with hypoxia and hypercapnia Status: Acute (4) TITO (obstructive sleep apnea) Status: Acute (5) Super obese Status: Chronic (6) NSTEMI (non-ST elevation myocardial infarction) Status: Acute (7) Methamphetamine abuse Status: Acute (8) Hypertensive emergency Status: Resolved Resolution Date/Time: 09/22/21 @ 19:03 Supervisory-Addendum Brief Verification & Attestation Participated in pt care: history, MDM, physical Personally performed: exam, history, MDM, supervision of care Care discussed with: Medical Student Procedures: n/a Results interpretation: Verified all documentation A medical student performed and documented this service in my presence. I reviewed and verified all information documented by the medical student and made modifications to such information, when appropriate. I personally performed the physical exam and medical decision making. CARMEN HART MED STUDENT Sep 23, 2021 13:07 LENNY SMITH MD Sep 23, 2021 19:08
[2021-09-23 19:36] LABS: CALCIUM 8.3 MG/DL (8.5-10.1)
[2021-09-23 19:37] LABS: POTASSIUM 3.6 MMOL/L (3.6-5.0)
[2021-09-23 19:41] LABS: CREATININE SERUM 1.99 MG/DL (0.60-1.30)
[2021-09-24 05:39] LABS: BASOPHILS % (AUTO) 0 % (0-10); EOSINOPHILS # (AUTO) 0.3 10^3/uL (0.0-0.3); EOSINOPHILS % (AUTO) 4 % (0-10); HEMATOCRIT 32 % (40-54); HEMOGLOBIN 9.8 g/dL (13.3-17.7); LYMPHOCYTES # (AUTO) 1.5 10^3/uL (1.0-4.0); LYMPHOCYTES % (AUTO) 19 % (12-44); MEAN CORPUSCULAR HEMOGLOBIN 21 pg (25-34); MEAN CORPUSCULAR HGB CONC 31 g/dL (32-36); MEAN CORPUSCULAR VOLUME 66 fL (80-99); MEAN PLATELET VOLUME 9.5 fL (9.0-12.2); MONOCYTES # (AUTO) 0.9 10^3/uL (0.0-1.0); MONOCYTES % (AUTO) 12 % (0-12); NEUTROPHILS % (AUTO) 64 % (42-75); PLATELET COUNT 334 10^3/uL (130-400); WHITE BLOOD COUNT 7.8 10^3/uL (4.3-11.0)
[2021-09-24] MEDS: niCARdipine 50 MG/NS 250 ML IV DRIP IV SCH ×6 (06:08→23:16)
[2021-09-24 06:13] LABS: ALBUMIN 2.8 GM/DL (3.2-4.5); BILIRUBIN,TOTAL 0.5 MG/DL (0.1-1.0); CALCIUM 8.4 MG/DL (8.5-10.1); CREATININE SERUM 1.98 MG/DL (0.60-1.30); MAGNESIUM 1.6 MG/DL (1.6-2.4); PHOSPHORUS 3.3 MG/DL (2.3-4.7); POTASSIUM 3.4 MMOL/L (3.6-5.0); TOTAL PROTEIN 5.9 GM/DL (6.4-8.2)
[2021-09-24] MEDS: KCL 20 MEQ TAB (K-DUR) PO SCH (06:43)
[2021-09-24] MEDS: MAGNESIUM 1 GM/100 ML IVPB 100 ML IV SCH (06:43)
[2021-09-24] MEDS: POTASSIUM CL 10MEQ/50ML IVPB 50 ML IV SCH (06:44)
[2021-09-24 06:56] VITALS: BP 116/63
[2021-09-24] MEDS: FUROSEMIDE 40 MG/4 ML INJ (LASIX) IVP SCH ×2 (06:58→17:50)
[2021-09-24] MEDS ORDERED: KCL 20 MEQ TAB (K-DUR) PO ONE (07:00)
[2021-09-24] MEDS: ISOSORBIDE MONONITRATE 60 MG (IMDUR) TAB PO SCH (08:23)
[2021-09-24] MEDS: ASPIRIN 81 MG CHEW (CHILDREN'S ASA) PO SCH (08:23)
[2021-09-24] MEDS: DOBUTamine DRIP 250 ML IV SCH ×2 (08:24→17:50)
--- NOTE | 2021-09-24 09:19 | Cardiology Progress Note ---
Subjective Date Seen by Provider: Sep 24, 2021 Time Seen by Provider: 09:18 Subjective/Events-last exam Patient is laying down in bed, feeling better, breathing better, edema is better Review of Systems General: No Chills, No Night Sweats, No Fatigue, No Malaise, No Appetite, No Other HEENT: No Head Aches, No Visual Changes, No Eye Pain, No Ear Pain, No Dysphasia, No Sinus Congestion, No Post Nasal Drip, No Sore Throat, No Other Pulmonary: No Dyspnea, No Cough, No Pleuritic Chest Pain, No Other Cardiovascular: No: Chest Pain, Palpitations, Orthopnea, Paroxysmal Noc. Dyspnea, Edema, Lt Headedness, Other Objective-Cardiology Exam Last Set of Vital Signs Vital Signs 09/24/21 09/24/21 09/24/21 09/24/21 04:00 08:00 08:24 09:00 Temp 36.2 Pulse 105 Resp 19 B/P (MAP) 120/97 Pulse Ox 99 O2 Delivery Nasal Cannula O2 Flow Rate 3.00 FiO2 21 I&O Intake and Output 09/24/21 00:00 Intake Total 1900 ml Output Total 50524 ml Balance -9775 ml Intake Oral 1650 ml IV Total 250 ml Output Urine Total 87261 ml General: Alert, Oriented X3, Cooperative HEENT: Atraumatic, PERRLA Neck: Supple, No JVD, No Thyromegaly Lungs: Clear to Auscultation, Normal Air Movement Heart: Regular Rate, Normal S1, Normal S2, No Murmurs Abdomen: Normal Bowel Sounds, Soft, No Tenderness, No Hepatosplenomegaly, No Masses Extremities: No Clubbing, No Cyanosis, No Edema, Normal Pulses, No Tenderness/Swelling Skin: No Rashes, No Breakdown, No Significant Lesion Neuro: Normal Gait, Normal Speech, Strength at 5/5 X4 Ext, Normal Tone, Sensation Intact Psych/Mental Status: Mental Status NL, Mood NL Results Lab Laboratory Tests 09/23/21 18:50 09/24/21 05:26 A/P-Cardiology Admission Diagnosis Congestive heart failure Acute renal failure Hypertensive emergency Acute respiratory failure Assessment/Plan Congestive heart failure, acute on chronic left ventricular systolic dysfunction with volume overload, responding to diuretics. Unknown etiology, could be secondary to coronary artery disease, cardiac catheterization has been postponed due to his renal insufficiency. Patient has been diuresing aggressively, urine output is over 10 L in the past 48 hours I will cut down Lasix to 40 mg twice daily and monitor tolerance and response Sinus tachycardia, probably secondary to intravascular volume depletion, continue to monitor closely Questionable coronary artery disease as a cause for his congestive heart failure, managed by Dr. Reyes, considering cardiac catheterization once his renal function are better Increased risk of sudden , planning to have a LifeVest prior to discharge and possible ICD if he did not respond to treatment Hypertensive emergency, blood pressure is better. Continue to monitor Acute on chronic renal failure, renal function improving slowly. Continue to monitor Morbid obesity, BMI 53, we discussed weight loss. History of methamphetamine abuse. High risk for sleep apnea EMPERATRIZ VELA MD Sep 24, 2021 09:19
--- NOTE | 2021-09-24 09:36 | Tele-ICU Progress Note ---
Subjective Date Seen by a Provider: Sep 24, 2021 Time Seen by a Provider: 07:15 Subjective/Events-last exam This virtual visit was conducted using real time audio/video. Thank you for asking us to see this patient for hypertensive urgency, CMP low EF, probable TITO/OHS Recent events: BP 110/67 PE: Appears comfortable.VSS. O2 sat on HEENT: No obvious masses, adenopathy or JVD. Chest: clear to auscultation. CV: RRR S1 S2 No murmur or added sounds. Abd: Non-tender. Bowel sounds Y. : Unremarkable. Will Y. 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 No obvious focal findings. Extremities: Anasarca. Capillary refill < 3 seconds. Skin: unremarkable. Results: Elevated BUN 21, Creat 1.98, D-dimer 2.87 Gluc 102. Decreased K 3.4. CXR: Cardiomeg. . Available chart/ vitals / labs / images reviewed. Video assessment done using teleICU camera, rest of exam as per RN. A/P: Respiratory insufficiency: Continue present management with O2/BiPAP,albuterol Critical Care: critically ill patient. Cont. Lasix, dobut.,isordil, coreg. ASA and Kimberley held. Discussed with CINDY Bethea. Asked RN to reach out to eICU if any questions or concerns later. Time spent with patient/coordination of care with other health professionals (mins): 15 Sepsis Event Evaluation Height, Weight, BMI Height: '" Weight: lbs. oz. kg; 56.16 BMI Method: Exam Exam Patient acknowledged, consented, and participated in this virtual visit which was conducted using real time audio/video Vital Signs Date Time Temp Pulse Resp B/P (MAP) Pulse Ox O2 Delivery O2 Flow Rate FiO2 09/24/21 09:00 105 19 99 Nasal Cannula 3.00 09/24/21 08:24 109 120/97 09/24/21 08:00 100 Room Air 3.00 09/24/21 08:00 109 14 120/97 98 Nasal Cannula 3.00 09/24/21 08:00 36.2 09/24/21 07:00 103 09/24/21 07:00 102 11 143/75 98 Nasal Cannula 3.00 09/24/21 06:56 101 21 96 21.00 09/24/21 06:00 100 16 159/86 98 Nasal Cannula 3.00 09/24/21 05:00 104 19 122/51 97 Nasal Cannula 3.00 09/24/21 04:00 105 17 123/66 96 Nasal Cannula 3.00 09/24/21 04:00 36.6 09/24/21 04:00 100 NIV Bilevel 3.00 21 09/24/21 03:00 106 15 124/65 100 Nasal Cannula 3.00 09/24/21 02:51 100 Nasal Cannula 3.00 09/24/21 02:00 107 15 130/68 100 Nasal Cannula 3.00 09/24/21 01:00 108 17 119/75 99 Nasal Cannula 3.00 09/24/21 01:00 110 09/24/21 00:00 110 17 152/75 99 NIV Bilevel 21.00 09/24/21 00:00 36.2 Nasal Cannula 3.00 09/24/21 00:00 100 Nasal Cannula 3.00 09/23/21 23:00 113 17 120/55 97 NIV Bilevel 21.00 09/23/21 22:28 120 100/52 09/23/21 22:00 111 23 100/52 97 NIV Bilevel 21.00 09/23/21 21:00 108 21 150/76 95 NIV Bilevel 21.00 09/23/21 20:00 36.0 09/23/21 20:00 100 Nasal Cannula 3.00 09/23/21 20:00 112 22 165/79 100 Nasal Cannula 3.00 09/23/21 19:00 113 09/23/21 19:00 113 22 127/51 99 Nasal Cannula 3.00 09/23/21 18:37 100 Nasal Cannula 3.00 09/23/21 18:00 109 39 137/74 100 Nasal Cannula 3.00 09/23/21 17:00 106 31 146/79 100 Nasal Cannula 3.00 09/23/21 16:39 36.2 09/23/21 16:26 112 138/67 100 Nasal Cannula 3.00 09/23/21 15:00 99 Nasal Cannula 3.00 09/23/21 15:00 105 20 113/68 97 Nasal Cannula 3.00 09/23/21 14:05 116 116/74 09/23/21 14:00 106 28 105/58 100 Nasal Cannula 3.00 09/23/21 13:00 116 28 116/74 100 Nasal Cannula 3.00 09/23/21 12:55 106 09/23/21 12:00 36.5 09/23/21 12:00 99 NIV Bilevel 21 09/23/21 12:00 114 25 106/57 100 Nasal Cannula 3.00 09/23/21 11:00 97 24 110/68 99 Nasal Cannula 3.00 09/23/21 10:00 100 21 129/70 96 Nasal Cannula 3.00 I & O 09/24/21 07:00 Intake Total 2500 ml Output Total 97836 ml Balance -7775 ml Height & Weight Height: '" Weight: lbs. oz. kg; 56.16 BMI Method: General Appearance: No Apparent Distress, Obese HEENT: PERRL/EOMI Neck: Other (central line nonerythematous, but oozing blood) Respiratory: Chest Non Tender, No Accessory Muscle Use, Decreased Breath Sounds , Rhonci Cardiovascular: No Murmur, Tachycardia Capillary Refill: Less Than 3 Seconds Gastrointestinal: non tender, soft, no organomegaly, other (edema across lower abd) Extremity: Normal Capillary Refill, Non Tender, Pedal Edema Neurologic/Psychiatric: Alert, Oriented x3, Normal Mood/Affect Skin: Normal Color, Warm/Dry Lymphatic: No Adenopathy Results Lab Laboratory Tests 09/22/21 19:30 09/22/21 20:45 09/23/21 05:42 09/23/21 18:50 09/24/21 05:26 Assessment/Plan Assessment/Plan See free text. Critical Care: Critically Ill Patient SOPHIA ABDI MD Sep 24, 2021 09:36
--- NOTE | 2021-09-24 12:52 | Progress Note - Hospitalist ---
CARMEN HART A MED STUDENT 09/24/21 1252: Subjective HPI/CC On Admission Date Seen by Provider: Sep 24, 2021 Time Seen by Provider: 08:30 This is a 35 yo male who presented to the ED for scrotal swelling, orthopnea and SOA. Pt has no past medical hx and has not seen a physician in "many years". Pt reports he had two days of testicular swelling as well as generalized swelling and SOA, especially when lying flat. Pt reports his significant other noticed he was having trouble breathing at night. Pt denies previous sleep study or diagnosis of obstructive sleep apnea. Pt reports he takes no medications. Today, pt states he feels better than yesterday, but on exam his is visibly SOA and his oxygen saturation is 79% on 6L NC. Pt was placed on bipap and oxygen saturations increased to 94%. Pt denied fever, chills, chest pain, palpitations, N/V/D, urinary frequency or burning, blurry vision or headache. Subjective/Events-last exam Pt up in bed on 3L NC with good oxygen saturation. Pt reports he feels better today. Pt reports his SOA has improved. Pt denies fever, chills, cp, palpitations, N/V/D, cough. Review of Systems General: No Chills, No Fatigue HEENT: No Head Aches, No Visual Changes Pulmonary: Dyspnea; No Cough Cardiovascular: No: Chest Pain, Palpitations Gastrointestinal: No: Nausea, Vomiting, Abdominal Pain Genitourinary: No Dysuria, No Frequency Neurological: No: Weakness, Numbness Objective Exam Vital Signs Vital Signs Date Time Temp Pulse Resp B/P (MAP) Pulse Ox O2 Delivery O2 Flow Rate FiO2 09/24/21 12:00 110 25 100 Nasal Cannula 3.00 09/24/21 12:00 36.0 09/24/21 04:00 21 Capillary Refill : Less Than 3 Seconds General Appearance: No Apparent Distress, WD/WN HEENT: PERRL/EOMI Respiratory: Chest Non Tender, No Accessory Muscle Use, No Respiratory Di stress, Decreased Breath Sounds Cardiovascular: No Murmur, Tachycardia Gastrointestinal: Normal Bowel Sounds, Non Tender, Soft Extremity: Normal Capillary Refill, Non Tender, Pedal Edema (1+ pitting edema) Neurologic/Psychiatric: Alert, Oriented x3, Normal Mood/Affect Skin: Normal Color, Warm/Dry Results/Procedures Lab Laboratory Tests 09/23/21 18:50 09/24/21 05:26 Patient resulted labs reviewed. Imaging: Reviewed Imaging Report Assessment/Plan Assessment and Plan Assess & Plan/Chief Complaint 35 yo super obese male who is being treated for fluid overload secondary to new onset heart failure complicated by acute tubular necrosis on chronic kidney disease. New onset heart failure with reduced EF -Continue IV lasix 80 mg BID per cardiology as pt is still fluid overloaded -Dobutamine, Coreg and Imdur -Urine output goal 150ml/hr -Down 15.4 kg since admission, good urine output Acute on chronic kidney injury -Improving Acute hypoxic respiratory failure with hypoxia -Bipap 21% while sleeping and 3L NC when awake Bleeding from Central Line site/Hematuria -Hold Lovenox and aspirin HTN -Normotensive Probable TITO -Bipap 21% with good saturations NSTEMI Meth abuse LENNY SMITH MD 09/24/21 1804: Subjective HPI/CC On Admission Time Seen by Provider: 09:50 Assessment/Plan Assessment and Plan Assess & Plan/Chief Complaint Continuing diuresis. Stopping dobutamine. Down ~20 kg since admission. Diagnosis/Problems Diagnosis/Problems (1) Acute HFrEF (heart failure with reduced ejection fraction) Status: Acute (2) Acute kidney injury superimposed on chronic kidney disease Status: Acute (3) Acute respiratory failure with hypoxia and hypercapnia Status: Acute (4) TITO (obstructive sleep apnea) Status: Acute (5) Super obese Status: Chronic (6) NSTEMI (non-ST elevation myocardial infarction) Status: Acute (7) Hypertensive emergency Status: Resolved Resolution Date/Time: 09/22/21 @ 19:03 (8) Methamphetamine abuse Status: Acute Supervisory-Addendum Brief Verification & Attestation Participated in pt care: history, MDM, physical Personally performed: exam, history, MDM, supervision of care Care discussed with: Medical Student Procedures: n/a Results interpretation: Verified all documentation A medical student performed and documented this service in my presence. I reviewed and verified all information documented by the medical student and made modifications to such information, when appropriate. I personally performed the physical exam and medical decision making. CARMEN HART MED STUDENT Sep 24, 2021 12:52 LENNY SMITH MD Sep 24, 2021 18:04
[2021-09-24 22:19] VITALS: BP 108/61
[2021-09-25 02:30] VITALS: BP 137/83
[2021-09-25 05:47] LABS: BASOPHILS % (AUTO) 0 % (0-10); EOSINOPHILS # (AUTO) 0.3 10^3/uL (0.0-0.3); EOSINOPHILS % (AUTO) 5 % (0-10); HEMATOCRIT 34 % (40-54); HEMOGLOBIN 10.3 g/dL (13.3-17.7); LYMPHOCYTES # (AUTO) 1.6 10^3/uL (1.0-4.0); LYMPHOCYTES % (AUTO) 22 % (12-44); MEAN CORPUSCULAR HEMOGLOBIN 20 pg (25-34); MEAN CORPUSCULAR HGB CONC 31 g/dL (32-36); MEAN CORPUSCULAR VOLUME 66 fL (80-99); MEAN PLATELET VOLUME 9.7 fL (9.0-12.2); MONOCYTES # (AUTO) 0.7 10^3/uL (0.0-1.0); MONOCYTES % (AUTO) 10 % (0-12); NEUTROPHILS # (AUTO) 4.2 10^3/uL (1.8-7.8); NEUTROPHILS % (AUTO) 61 % (42-75); PLATELET COUNT 386 10^3/uL (130-400); WHITE BLOOD COUNT 6.9 10^3/uL (4.3-11.0)
[2021-09-25 06:00] LABS: POTASSIUM 3.8 MMOL/L (3.6-5.0)
[2021-09-25 06:01] LABS: CALCIUM 8.8 MG/DL (8.5-10.1)
[2021-09-25 06:02] LABS: TOTAL PROTEIN 6.4 GM/DL (6.4-8.2)
[2021-09-25 06:04] LABS: BILIRUBIN,TOTAL 0.5 MG/DL (0.1-1.0)
[2021-09-25 06:05] LABS: PHOSPHORUS 3.1 MG/DL (2.3-4.7)
[2021-09-25] MEDS: POTASSIUM CL 10MEQ/50ML IVPB 50 ML IV SCH (06:05)
[2021-09-25] MEDS: KCL 20 MEQ TAB (K-DUR) PO SCH (06:05)
[2021-09-25] MEDS: MAGNESIUM 1 GM/100 ML IVPB 100 ML IV SCH (06:05)
[2021-09-25 06:06] LABS: CREATININE SERUM 1.85 MG/DL (0.60-1.30)
[2021-09-25 06:08] LABS: MAGNESIUM 1.6 MG/DL (1.6-2.4)
[2021-09-25] MEDS: FUROSEMIDE 40 MG/4 ML INJ (LASIX) IVP SCH ×2 (06:20→18:22)
[2021-09-25] MEDS: ASPIRIN 81 MG CHEW (CHILDREN'S ASA) PO SCH (07:53)
[2021-09-25] MEDS: ISOSORBIDE MONONITRATE 60 MG (IMDUR) TAB PO SCH (07:54)
[2021-09-25] MEDS: niCARdipine 50 MG/NS 250 ML IV DRIP IV SCH ×4 (07:56→19:12)
[2021-09-25] MEDS ORDERED: FUROSEMIDE 40 MG/4 ML INJ (LASIX) IVP ONE (08:30)
--- NOTE | 2021-09-25 08:42 | Cardiology Progress Note ---
Progress Note-Cardiology Events since last exam Date Seen by Provider: Sep 25, 2021 Time Seen by Provider: 08:40 Events since last exam I am seeing him due to heart failure and newly discovered cardiomyopathy. His breathing and edema continue to improve. He denies chest pain, palpitations, or syncope. Certain portions of this document may have been dictated utilizing voice recognition technology. Inherent to this technology, typographical and grammatical errors may exist. As much as I am diligent to identify and correct these mistakes, some errors may remain in the document. Vitals Last set of Vitals Signs Vital Signs 09/25/21 09/25/21 03:25 09:00 Pulse 105 Resp 20 B/P (MAP) 149/103 Pulse Ox 100 O2 Delivery Nasal Cannula O2 Flow Rate 3.00 FiO2 21 Labs Labs Laboratory Tests 09/25/21 05:35 Exam Vital Signs Vital Signs Date Time Temp Pulse Resp B/P (MAP) Pulse Ox O2 Delivery O2 Flow Rate FiO2 09/25/21 09:00 105 20 149/103 100 Nasal Cannula 3.00 09/25/21 04:00 36.6 09/25/21 03:25 21 Physical Exam General: Alert. No acute distress. He is morbidly obese. Eye: No xanthelasma. HENT: Normocephalic. Neck: Jugular venous pressure does not appear elevated. Respiratory: Lungs are clear to auscultation. Respirations are non-labored. Breath sounds are equal. Symmetrical chest wall expansion. Cardiovascular: Normal rate. Regular rhythm. Distant S1/S2. No murmur. No gallop. 1+ bilateral pretibial edema. Gastrointestinal: Soft. Normal bowel sounds. Skin: Warm. Dry. Neurologic: Alert and oriented to person, place, time. Cranial nerves 3-11 grossly intact. Psychiatric: Cooperative. Appropriate mood & affect. Labs Laboratory Tests Test 09/25/21 05:35 Range/Units White Blood Count 6.9 4.3-11.0 10^3/uL Red Blood Count 5.13 4.30-5.52 10^6/uL Hemoglobin 10.3 L 13.3-17.7 g/dL Hematocrit 34 L 40-54 % Mean Corpuscular Volume 66 L 80-99 fL Mean Corpuscular Hemoglobin 20 L 25-34 pg Mean Corpuscular Hemoglobin Concent 31 L 32-36 g/dL Red Cell Distribution Width 16.0 H 10.0-14.5 % Platelet Count 386 130-400 10^3/uL Mean Platelet Volume 9.7 9.0-12.2 fL Immature Granulocyte % (Auto) 1 % Neutrophils (%) (Auto) 61 42-75 % Lymphocytes (%) (Auto) 22 12-44 % Monocytes (%) (Auto) 10 0-12 % Eosinophils (%) (Auto) 5 0-10 % Basophils (%) (Auto) 0 0-10 % Neutrophils # (Auto) 4.2 1.8-7.8 10^3/uL Lymphocytes # (Auto) 1.6 1.0-4.0 10^3/uL Monocytes # (Auto) 0.7 0.0-1.0 10^3/uL Eosinophils # (Auto) 0.3 0.0-0.3 10^3/uL Basophils # (Auto) 0.0 0.0-0.1 10^3/uL Immature Granulocyte # (Auto) 0.1 0.0-0.1 10^3/uL Sodium Level 139 135-145 MMOL/L Potassium Level 3.8 3.6-5.0 MMOL/L Chloride Level 91 L 98-107 MMOL/L Carbon Dioxide Level 34 H 21-32 MMOL/L Anion Gap 14 5-14 MMOL/L Blood Urea Nitrogen 19 H 7-18 MG/DL Creatinine 1.85 H 0.60-1.30 MG/DL Estimat Glomerular Filtration Rate 48 BUN/Creatinine Ratio 10 Glucose Level 113 H 70-105 MG/DL Calcium Level 8.8 8.5-10.1 MG/DL Corrected Calcium 9.6 8.5-10.1 MG/DL Phosphorus Level 3.1 2.3-4.7 MG/DL Magnesium Level 1.6 1.6-2.4 MG/DL Total Bilirubin 0.5 0.1-1.0 MG/DL Aspartate Amino Transf (AST/SGOT) 24 5-34 U/L Alanine Aminotransferase (ALT/SGPT) 47 0-55 U/L Alkaline Phosphatase 68 40-136 U/L Total Protein 6.4 6.4-8.2 GM/DL Albumin 3.0 L 3.2-4.5 GM/DL Diagnosis/Problems Diagnosis/Problems (1) Acute HFrEF (heart failure with reduced ejection fraction) Status: Acute Assessment & Plan: His chest x-rays have shown pulmonary congestion and he is short of breath but improving. His renal function continues to improve. He is on carvedilol, nitrates and hydralazine. We will continue hydralazine and nitrates. He is not presently a good candidate for NORRIS inhibitor, ARB or spironolactone due to acute kidney injury. (2) Cardiomyopathy Assessment & Plan: His echocardiogram from 09/19 showed severe left ventricular systolic dysfunction with an estimated ejection fraction of 20-25%. Exact etiology unclear. As above, I lowered the dose of carvedilol and hydralazine due to borderline low blood pressures on 09/20. I started him on low-dose intravenous dobutamine on 09/20 to see if this may help improve his heart failure and renal function. At some point, we may need to consider further evaluation with a cardiac catheterization to exclude coronary artery disease as a possible etiology of the cardiomyopathy. However, we need to wait for his renal function to improve before giving him intravenous contrast. He will need to be on guideline directed medical therapy at the maximum tolerated doses for 2-3 months before we consider whether or not he needs defibrillator implantation. We may also want to consider a LifeVest prior to discharge. (3) Primary hypertension Assessment & Plan: His blood pressures are reasonably controlled with the present medication for heart failure. We will titrate up as tolerated. (4) Elevated troponin Assessment & Plan: This was probably a type II non-ST elevation myocardial infarction due to supply/demand mismatch related to the hypertensive emergency on top of heart failure as well as some component of noncardiac troponin elevation due to the acute kidney injury. (5) Hypertensive emergency Status: Resolved Assessment & Plan: He had markedly elevated blood pressures with evidence of acute heart failure at the time of admission. This has resolved. He is now on oral medication due to cardiomyopathy and heart failure as outlined above. Resolution Date/Time: 09/22/21 @ 19:03 (6) Acute kidney injury Status: Acute Assessment & Plan: This will need to be monitored closely. We do not know his baseline renal function because he does not normally go to doctors. His creatinine was initially getting worse but now seems to be trending downwards. There do not appear to be any indications for dialysis at this point in time. (7) Morbid obesity Status: Acute Assessment & Plan: He needs to work on weight loss. If he cannot lose a significant amount of weight over the next 6-12 months, I would consider referring him for bariatric consultation at that time. JAH CANNON JR, MD Sep 25, 2021 08:42
--- NOTE | 2021-09-25 10:45 | Occ Therapy Progress Note ---
Therapy Progress Note Pt declined OT at this time stating that he is doing fine and is supposed to be going to 4th floor today. Will attempt OT at later time. 1 refusal [id number] ALOK CORREA Sep 25, 2021 10:45
--- NOTE | 2021-09-25 10:55 | Tele-ICU Progress Note ---
Subjective Date Seen by a Provider: Sep 25, 2021 Time Seen by a Provider: 10:55 Sepsis Event Evaluation Height, Weight, BMI Height: '" Weight: lbs. oz. kg; 56.16 BMI Method: Exam Exam Patient acknowledged, consented, and participated in this virtual visit which was conducted using real time audio/video Vital Signs Date Time Temp Pulse Resp B/P (MAP) Pulse Ox O2 Delivery O2 Flow Rate FiO2 09/25/21 10:00 101 29 142/77 96 Nasal Cannula 3.00 09/25/21 09:00 105 20 149/103 100 Nasal Cannula 3.00 09/25/21 08:00 102 11 136/73 99 Nasal Cannula 3.00 09/25/21 07:58 105 09/25/21 07:56 Nasal Cannula 3.00 09/25/21 07:12 Nasal Cannula 3.00 09/25/21 07:00 98 Nasal Cannula 3.00 09/25/21 07:00 106 24 123/75 99 NIV Bilevel 21.00 09/25/21 06:00 91 20 136/94 99 NIV Bilevel 21.00 09/25/21 05:00 105 28 126/74 96 NIV Bilevel 21.00 09/25/21 04:00 36.6 09/25/21 04:00 98 12 132/89 98 NIV Bilevel 21.00 09/25/21 03:25 NIV Bilevel 21 09/25/21 03:00 102 33 154/113 96 NIV Bilevel 21.00 09/25/21 02:30 102 27 98 21.00 09/25/21 02:00 100 21 137/83 97 NIV Bilevel 21.00 09/25/21 01:00 101 15 167/107 98 NIV Bilevel 21.00 09/25/21 01:00 101 09/25/21 00:00 105 8 171/106 95 NIV Bilevel 21.00 09/24/21 23:17 Nasal Cannula 3.00 09/24/21 23:08 36.8 09/24/21 23:00 105 22 152/88 99 NIV Bilevel 21.00 09/24/21 22:19 103 39 97 21.00 09/24/21 22:00 105 21 108/61 99 NIV Bilevel 21.00 09/24/21 21:11 NIV Bilevel 21.00 09/24/21 21:00 112 24 146/67 100 Nasal Cannula 3.00 09/24/21 20:00 100 Nasal Cannula 3.00 09/24/21 20:00 36.4 09/24/21 20:00 109 121/69 100 Nasal Cannula 3.00 09/24/21 19:00 106 09/24/21 19:00 106 15 115/63 98 Nasal Cannula 3.00 09/24/21 18:17 99 Nasal Cannula 3.00 09/24/21 18:00 111 13 153/101 97 Nasal Cannula 3.00 09/24/21 17:00 104 17 151/100 99 Nasal Cannula 3.00 09/24/21 16:00 101 17 142/69 97 Nasal Cannula 3.00 09/24/21 16:00 36.9 09/24/21 15:06 100 Room Air 3.00 09/24/21 15:00 105 12 160/68 98 Nasal Cannula 3.00 09/24/21 14:00 105 17 118/63 100 Nasal Cannula 3.00 09/24/21 13:00 102 23 116/58 99 Nasal Cannula 3.00 09/24/21 13:00 100 Room Air 3.00 09/24/21 12:48 100 09/24/21 12:00 110 25 100 Nasal Cannula 3.00 09/24/21 12:00 36.0 09/24/21 11:00 105 18 100 Nasal Cannula 3.00 I & O 09/25/21 07:00 Intake Total 2965 ml Output Total 5625 ml Balance -2660 ml Height & Weight Height: '" Weight: lbs. oz. kg; 56.16 BMI Method: General Appearance: No Apparent Distress, WD/WN HEENT: PERRL/EOMI Neck: Other (central line nonerythematous, but oozing blood) Respiratory: Chest Non Tender, No Accessory Muscle Use, No Respiratory Distress, Decreased Breath Sounds Cardiovascular: No Murmur, Tachycardia Capillary Refill: Less Than 3 Seconds Gastrointestinal: non tender, soft, no organomegaly, other (edema across lower abd) Extremity: Normal Capillary Refill, Non Tender, Pedal Edema (1+ pitting edema) Neurologic/Psychiatric: Alert, Oriented x3, Normal Mood/Affect Skin: Normal Color, Warm/Dry Lymphatic: No Adenopathy Results Lab Laboratory Tests 09/23/21 18:50 09/24/21 05:26 09/25/21 05:35 Assessment/Plan Assessment/Plan Tele-ICU Physician , Progress Note ) Available chart/ vitals / labs / Images reviewed Video assessment done using teleICU camera, rest of exam as per RN Discussed with RN , EXAM PER RN Events overnight : hypotensive Afebrile FiO2 - I/O = >5 L Drips: OFF Pressors: , hemodynamically stable Consultants: linda Hospital course: - adnitted with scrotal edema , anasarca 09/19 - TITO - > BIPAP, EF 20 % 09/20 - worsenign Cr , CVP16 - started on dobs2.5 and lasix gtt 09/21 - Bipap 25% , UO>5L - Cr stable CVP20 , dobs2.5 and lasix gtt 5 mg/h 09/25 - off all drips A/P Acute hypercarbic resp failure - inderlying TITO / [facility] - Bipap 14/04 - will change to 10/04 , check abg am - will use BIPAP nocturnally - will need outpatient sleep study and NIPPV CHUY - most likely cardio-renal syndrome -imprived , in lasix - follow HTN - snow technician meds Cardiomyopathy - ECHO 09/18 - EF 20-25% -w/up and meds as per cardiology - planning to have a LifeVest prior to discharge and possible ICD Elev d-dimer - US LE neg fo dvt - lovenox full dose given scrotal swelling - as per RN exam - no cellulitis, WBC 14 , PCT 0.4 - riding to 0.6 added rocephin , -- PER BEDSIDE MD to reassess Elevated LFT - liver congestion Positive for methamphetamine - Lines : (Central Line Necessity Reviewed) Will: + OG: Nutrition: po Analgesia: Anxiety/ delirium VTE Prophylaxis: juan carlos full dose Stress Ulcer Prophylaxis: na Plans in collaboration with bedside consultants and IM MDs. Discussed with RN to reach out if any questions or concerns A total of 33 minutes of critical care time was devoted to this patient today, required to treat and/or prevent further deterioration of critical care condition ( as above ) THOMAS FERRARI MD Sep 25, 2021 10:55
--- NOTE | 2021-09-25 18:34 | Progress Note - Hospitalist ---
Subjective HPI/CC On Admission Date Seen by Provider: Sep 25, 2021 Time Seen by Provider: 08:55 This is a 35 yo male who presented to the ED for scrotal swelling, orthopnea and SOA. Pt has no past medical hx and has not seen a physician in "many years". Pt reports he had two days of testicular swelling as well as generalized swelling and SOA, especially when lying flat. Pt reports his significant other noticed he was having trouble breathing at night. Pt denies previous sleep study or diagnosis of obstructive sleep apnea. Pt reports he takes no medications. Today, pt states he feels better than yesterday, but on exam his is visibly SOA and his oxygen saturation is 79% on 6L NC. Pt was placed on bipap and oxygen saturations increased to 94%. Pt denied fever, chills, chest pain, palpitations, N/V/D, urinary frequency or burning, blurry vision or headache. Subjective/Events-last exam He is feeling better. He has much less swelling. He is not short of breath. Objective Exam Vital Signs Vital Signs Date Time Temp Pulse Resp B/P (MAP) Pulse Ox O2 Delivery O2 Flow Rate FiO2 09/25/21 18:00 108 27 114/71 97 Nasal Cannula 3.00 09/25/21 15:53 36.0 09/25/21 03:25 21 Capillary Refill : Less Than 3 Seconds General Appearance: No Apparent Distress, Obese Respiratory: Lungs Clear, No Respiratory Distress Cardiovascular: Regular Rate, Rhythm, No Murmur Gastrointestinal: Normal Bowel Sounds, Soft Extremity: Non Tender, Pedal Edema, Swelling Neurologic/Psychiatric: Alert, Normal Mood/Affect Skin: Normal Color, Warm/Dry Results/Procedures Lab Laboratory Tests 09/25/21 05:35 Patient resulted labs reviewed. Imaging: Reviewed Imaging Report Assessment/Plan Assessment and Plan Assess & Plan/Chief Complaint Acute heart failure with reduced ejection fraction CHUY on CKD Cardiorenal syndrome Acute respiratory failure with hypoxia and hypercapnia HTN Likely TITO Super obesity Methamphetamine abuse Down nearly 30 L since admission Kidney function continues to improve Continue diuresis Dobutamine stopped Aspirin, Coreg, Imdur Supplemental oxygen as needed DVT prophylaxis: Lovenox HTN emergency, resolved Diagnosis/Problems Diagnosis/Problems (1) Acute HFrEF (heart failure with reduced ejection fraction) Status: Acute (2) Acute kidney injury superimposed on chronic kidney disease Status: Acute (3) Acute respiratory failure with hypoxia and hypercapnia Status: Acute (4) TITO (obstructive sleep apnea) Status: Acute (5) Super obese Status: Chronic (6) NSTEMI (non-ST elevation myocardial infarction) Status: Acute (7) Hypertensive emergency Status: Resolved Resolution Date/Time: 09/22/21 @ 19:03 (8) Methamphetamine abuse Status: Acute LENNY SMITH MD Sep 25, 2021 18:34
[2021-09-25] MEDS: ENOXAPARIN 60 MG/0.6 ML (LOVENOX) SYR SQ SCH (21:26)
[2021-09-26 03:59] LABS: BASOPHILS % (AUTO) 0 % (0-10); EOSINOPHILS # (AUTO) 0.4 10^3/uL (0.0-0.3); EOSINOPHILS % (AUTO) 5 % (0-10); HEMATOCRIT 33 % (40-54); HEMOGLOBIN 10.2 g/dL (13.3-17.7); LYMPHOCYTES % (AUTO) 28 % (12-44); MEAN CORPUSCULAR HEMOGLOBIN 20 pg (25-34); MEAN CORPUSCULAR HGB CONC 31 g/dL (32-36); MEAN CORPUSCULAR VOLUME 66 fL (80-99); MEAN PLATELET VOLUME 9.9 fL (9.0-12.2); MONOCYTES # (AUTO) 0.9 10^3/uL (0.0-1.0); MONOCYTES % (AUTO) 12 % (0-12); NEUTROPHILS % (AUTO) 54 % (42-75); PLATELET COUNT 381 10^3/uL (130-400); WHITE BLOOD COUNT 7.3 10^3/uL (4.3-11.0)
[2021-09-26 04:17] LABS: ALBUMIN 2.9 GM/DL (3.2-4.5); POTASSIUM 3.7 MMOL/L (3.6-5.0)
[2021-09-26 04:18] LABS: CALCIUM 8.4 MG/DL (8.5-10.1)
[2021-09-26 04:19] LABS: TOTAL PROTEIN 6.2 GM/DL (6.4-8.2)
[2021-09-26 04:21] LABS: BILIRUBIN,TOTAL 0.4 MG/DL (0.1-1.0)
[2021-09-26 04:22] LABS: PHOSPHORUS 2.9 MG/DL (2.3-4.7)
[2021-09-26 04:23] LABS: CREATININE SERUM 1.96 MG/DL (0.60-1.30)
[2021-09-26 04:26] LABS: MAGNESIUM 1.7 MG/DL (1.6-2.4)
[2021-09-26] MEDS: MAGNESIUM 1 GM/100 ML IVPB 100 ML IV SCH (04:36)
[2021-09-26] MEDS: niCARdipine 50 MG/NS 250 ML IV DRIP IV SCH ×4 (04:36→17:46)
[2021-09-26] MEDS: POTASSIUM CL 10MEQ/50ML IVPB 50 ML IV SCH (04:36)
[2021-09-26] MEDS: KCL 20 MEQ TAB (K-DUR) PO SCH (04:36)
[2021-09-26] MEDS: FUROSEMIDE 40 MG/4 ML INJ (LASIX) IVP SCH ×2 (05:28→17:52)
--- NOTE | 2021-09-26 08:19 | Cardiology Progress Note ---
Subjective Date Seen by Provider: Sep 26, 2021 Time Seen by Provider: 08:17 Subjective/Events-last exam Patient was seen at bedside, laying down comfortably, on nasal cannula oxygen. Review of Systems General: No Chills, No Night Sweats; Fatigue; No Malaise, No Appetite, No Other HEENT: No Head Aches, No Visual Changes, No Eye Pain, No Ear Pain, No Dysphasia, No Sinus Congestion, No Post Nasal Drip, No Sore Throat, No Other Pulmonary: No Dyspnea, No Cough, No Pleuritic Chest Pain, No Other Cardiovascular: No: Chest Pain, Palpitations, Orthopnea, Paroxysmal Noc. Dyspnea, Edema, Lt Headedness, Other Objective-Cardiology Exam Last Set of Vital Signs Vital Signs 09/26/21 09/26/21 09/26/21 03:47 03:57 08:09 Temp 36.6 Pulse 107 Resp 20 B/P (MAP) 127/72 Pulse Ox 94 O2 Delivery Nasal Cannula O2 Flow Rate 1.00 FiO2 21 I&O Intake and Output 09/26/21 00:00 Intake Total 1300 ml Output Total 6375 ml Balance -5075 ml Intake Oral 1300 ml Output Urine Total 6375 ml General: Alert, Oriented X3, Cooperative HEENT: Atraumatic, PERRLA Neck: Supple, No JVD, No Thyromegaly Lungs: Clear to Auscultation, Normal Air Movement Heart: Regular Rate, Normal S1, Normal S2, No Murmurs Abdomen: Normal Bowel Sounds, Soft, No Tenderness, No Hepatosplenomegaly, No Masses Extremities: No Clubbing, No Cyanosis, No Edema, Normal Pulses, No Tenderness/Swelling Skin: No Rashes, No Breakdown, No Significant Lesion Neuro: Normal Gait, Normal Speech, Strength at 5/5 X4 Ext, Normal Tone, Sensation Intact Psych/Mental Status: Mental Status NL, Mood NL Results Lab Laboratory Tests 09/26/21 03:50 A/P-Cardiology Admission Diagnosis Congestive heart failure Acute renal failure Hypertensive emergency Acute respiratory failure Assessment/Plan Congestive heart failure, acute on chronic left ventricular systolic dysfunction with volume overload, responding to diuretics. Unknown etiology, could be secondary to coronary artery disease, cardiac catheterization has been postponed due to his renal insufficiency. Maintained on Lasix 40 mg twice daily, responding well, continue to monitor Possible cardiac catheterization versus stress testing to evaluate the etiology of his underlying coronary artery disease. Patient have significant dyspnea, unable to lay down flat at this point. Sinus tachycardia, probably secondary to intravascular volume depletion, continue to monitor closely Questionable coronary artery disease as a cause for his congestive heart failure, managed by Dr. Reyes, considering cardiac catheterization once his renal function are better Increased risk of sudden , planning to have a LifeVest prior to discharge and possible ICD if he did not respond to treatment Hypertensive emergency, blood pressure is better. Continue to monitor Acute on chronic renal failure, renal function improving slowly. Continue to monitor Morbid obesity, BMI 53, we discussed weight loss. History of methamphetamine abuse. High risk for sleep apnea EMPERATRIZ VELA MD Sep 26, 2021 08:19
--- NOTE | 2021-09-26 08:52 | Occupational Ther Daily Note ---
OT Current Status-Daily Note Subjective Pt in bed. Pt agreeable to OT tx. Mental Status/Objective Patient Orientation: Person, Place, Time, Situation ADL-Treatment Therapy Code Descriptions/Definitions Functional [place] Measure: 0=Not Assessed/NA 4=Minimal Assistance 1=Total Assistance 5=Supervision or Setup 2=Maximal Assistance 6=Modified [place] 3=Moderate Assistance 7=Complete IndependenceSCALE: Activities may be completed with or without assistive devices. 7-[id number] completes the activity by him/herself with no assistance from a helper. 5-Set-up or Clean-up Assistance-helper sets up or cleans up; patient completes activity. [place] assists only prior to or following the activity. 4-Supervision or Touching Assistance-helper provides verbal cues and/or touching/steadying and/or contact guard assistance as patient completes activity. Assistance may be provided throughout the activity or intermittently. 3-Partial/Moderate Assistance-helper does LESS THAN HALF the effort. [place] lifts, holds or supports trunk or limbs, but provides less than half the effort. 2-Substantial/Maximal Assistance-helper does MORE THAN HALF the effort. [place] lifts or holds trunk or limbs and provides more than half the effort. 9-[id number]-aujgdg does ALL the effort. Patient does none of the effort to complete the activity. Or, the assistance of 2 or more helpers is required for the patient to complete the activity. If activity was not attempted, code reason: 7-Patient Refused. 9-Not Applicable-not attempted and the patient did not perform the activity before the current illness, exacerbation or injury. 10-Not Attempted due to Environmental Limitations-(lack of equipment, weather restraints, etc.). 88-Not Attempted due to Medical Conditions or Safety Concerns. Eating (QC): 6 (Per pt report.) Oral Hygiene (QC): 5 (Per clinical judgment.) Upper Body Dressing (QC): 5 (setup) Other Treatment Pt supine in bed. Pt transitioned EOB then attempted to stand. Pt was unsteady and had to sit back down, Second attempt to stand, Pt was more steady and was able to transition to the recliner, SBA for cord management. Pt doffed hospital gown then donned a new hospital gown, with setup. Pt indicates he feels like he is at his baseline, no difficulties with completing ADLs. Pt feels like he is ready to go home and doesn't wish to have further OT services. OT instructed pt to let his nurse know if he has a decline in ADL function and new OT orders can be sent, he verbalized understanding. Pt in recliner, call light in reach and all needs met. Education OT Patient Education: Correct positioning, Energy conservation, Modified ADL techniques, Progress toward Goal/Update tx plan, Purpose of tx/functional activities Teaching Recipient: Patient Teaching Methods: Discussion Response to Teaching: Verbalize Understanding OT Shelter Goals Sales Data Analyst Goals Time Frame: Sep 29, 2021 Eating (QC): 6 Oral Hygiene (QC): 6 Toileting Hygiene (QC): 6 Shower/Bathe Self (QC): 4 Upper Body Dressing (QC): 5 Lower Body Dressing (QC): 4 On/Off Footwear (QC): 4 Additional Goals: 1-Demonstrate ADL Tasks, 2-Verbalize Understanding, 3- ImproveStrength/[place] 1=Demonstrate adherence to instructed precautions during ADL tasks. 2=Patient will verbalize/demonstrate understanding of assistive devices/modifications for ADL. 3=Patient will improve strength/tolerance for activity to enable patient to perform ADL's. OT Education/Plan Problem List/Assessment Assessment: No Skilled OT Needs ID'd Pt reports he is at his PLOF and has no concerns with his ability to complete ADLs upon discharging. Pt declines further OT services due to being at PLOF. New OT orders needed if pt has a decline in function. Discharge Recommendations Plan/Recommendations: Discharge/Goals Met Treatment Plan/Plan of Care Patient would benefit from OT for education, treatment and training to promote independence in ADL's, mobility, safety and/or upper extremity function for ADL's. Plan of Care: ADL Retraining, Functional Mobility, UE Funct Exercise/Act Treatment Duration: Sep 29, 2021 Frequency: 3 times per week (3-5 times per week) Estimated Hrs Per Day: .25 hour per day Rehab Potential: Fair Time/GCodes Start Time: 08:00 Stop Time: 08:08 Total Time Billed (hr/min): 8 Billed Treatment Time 1, ADL (8) HECTOR ENNIS OT Sep 26, 2021 08:52
[2021-09-26] MEDS: ENOXAPARIN 60 MG/0.6 ML (LOVENOX) SYR SQ SCH (09:11)
[2021-09-26] MEDS: ASPIRIN 81 MG CHEW (CHILDREN'S ASA) PO SCH (09:11)
[2021-09-26] MEDS: ISOSORBIDE MONONITRATE 60 MG (IMDUR) TAB PO SCH (09:11)
--- NOTE | 2021-09-26 10:40 | Tele-ICU Progress Note ---
Subjective Date Seen by a Provider: Sep 26, 2021 Time Seen by a Provider: 10:40 Sepsis Event Evaluation Height, Weight, BMI Height: '" Weight: lbs. oz. kg; 56.16 BMI Method: Exam Exam Patient acknowledged, consented, and participated in this virtual visit which was conducted using real time audio/video Vital Signs Date Time Temp Pulse Resp B/P (MAP) Pulse Ox O2 Delivery O2 Flow Rate FiO2 09/26/21 10:00 36.9 98 18 140/72 100 Room Air 09/26/21 08:09 37.0 107 20 127/72 94 Nasal Cannula 1.00 09/26/21 08:00 99 11 127/72 100 NIV Bilevel 21.00 09/26/21 08:00 Nasal Cannula 1.00 09/26/21 07:00 104 09/26/21 04:00 98 23 113/57 90 NIV Bilevel 21.00 09/26/21 03:57 NIV Bilevel 21 09/26/21 03:47 36.6 09/26/21 03:15 NIV Bilevel 21.00 09/26/21 03:00 97 12 120/62 98 Nasal Cannula 3.00 09/26/21 02:00 96 8 109/73 97 Nasal Cannula 3.00 09/26/21 01:55 96 Nasal Cannula 3.00 09/26/21 01:00 98 18 95/60 100 Nasal Cannula 3.00 09/26/21 01:00 Nasal Cannula 3.00 09/26/21 01:00 98 09/26/21 00:04 98 37 94/60 97 NIV Bilevel 21.00 09/26/21 00:00 36.1 09/25/21 23:08 NIV Bilevel 21 09/25/21 23:06 98 88/47 98 NIV Bilevel 21.00 09/25/21 22:25 92 20 93/55 94 NIV Bilevel 21.00 09/25/21 21:00 97 21 121/73 94 NIV Bilevel 21.00 09/25/21 20:02 100 24 124/71 97 NIV Bilevel 21.00 09/25/21 20:00 NIV Bilevel 21 09/25/21 19:46 36.4 09/25/21 19:00 98 09/25/21 19:00 98 34 140/84 93 Nasal Cannula 3.00 09/25/21 18:00 108 27 114/71 97 Nasal Cannula 3.00 09/25/21 17:00 107 26 100/80 95 Nasal Cannula 3.00 09/25/21 16:44 Nasal Cannula 3.00 09/25/21 16:00 101 16 113/67 96 Nasal Cannula 3.00 09/25/21 15:53 36.0 09/25/21 15:00 103 19 102/75 97 Nasal Cannula 3.00 09/25/21 14:00 98 44 116/56 98 Nasal Cannula 3.00 09/25/21 13:00 105 39 86/43 100 Nasal Cannula 3.00 09/25/21 12:51 Nasal Cannula 3.00 09/25/21 12:27 100 09/25/21 12:00 98 45 110/68 99 Nasal Cannula 3.00 09/25/21 11:00 97 15 118/75 99 Nasal Cannula 3.00 I & O 09/26/21 07:00 Intake Total 1600 ml Output Total 5650 ml Balance -4050 ml Height & Weight Height: '" Weight: lbs. oz. kg; 56.16 BMI Method: General Appearance: No Apparent Distress, Obese HEENT: PERRL/EOMI Neck: Other (central line nonerythematous, but oozing blood) Respiratory: Lungs Clear, No Respiratory Distress Cardiovascular: Regular Rate, Rhythm, No Murmur Capillary Refill: Less Than 3 Seconds Gastrointestinal: non tender, soft, no organomegaly, other (edema across lower abd) Extremity: Non Tender, Pedal Edema, Swelling Neurologic/Psychiatric: Alert, Normal Mood/Affect Skin: Normal Color, Warm/Dry Lymphatic: No Adenopathy Results Lab Laboratory Tests 09/25/21 05:35 09/26/21 03:50 Assessment/Plan Assessment/Plan Tele-ICU Physician , Progress Note ) Available chart/ vitals / labs / Images reviewed Video assessment done using teleICU camera, rest of exam as per RN Discussed with RN , EXAM PER RN Events overnight : hypotensive Afebrile FiO2 - I/O = >5 L Drips: OFF Pressors: , hemodynamically stable Consultants: linda Hospital course: - adnitted with scrotal edema , anasarca 09/19 - TITO - > BIPAP, EF 20 % 09/20 - worsenign Cr , CVP16 - started on dobs2.5 and lasix gtt 09/21 - Bipap 25% , UO>5L - Cr stable CVP20 , dobs2.5 and lasix gtt 5 mg/h 09/25 - off all drips A/P Acute hypercarbic resp failure - inderlying TITO / [facility] - Bipap /8 - will change to 16/8 , check abg am - will use BIPAP nocturnally - will need outpatient sleep study and NIPPV CHUY - most likely cardio-renal syndrome -imprived , in lasix - follow 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 Cardiomyopathy - ECHO 09/18 - EF 20-25% -w/up and meds as per cardiology - planning to have a LifeVest prior to discharge and possible ICD Elev d-dimer - US LE neg fo dvt - lovenox full dose given scrotal swelling - as per RN exam - no cellulitis, WBC 14 , PCT 0.4 - riding to 0.6 added rocephin , -- PER BEDSIDE MD to reassess Elevated LFT - liver congestion Positive for methamphetamine - Lines : (Central Line Necessity Reviewed) Will: + OG: Nutrition: po Analgesia: Anxiety/ delirium VTE Prophylaxis: juan carlos full dose Stress Ulcer Prophylaxis: na Plans in collaboration with bedside consultants and IM MDs. Discussed with RN to reach out if any questions or concerns A total of 33 minutes of critical care time was devoted to this patient today, required to treat and/or prevent further deterioration of critical care condition ( as above ) THOMAS FERRARI MD Sep 26, 2021 10:40
--- NOTE | 2021-09-26 19:04 | Progress Note - Hospitalist ---
Subjective HPI/CC On Admission Date Seen by Provider: Sep 26, 2021 Time Seen by Provider: 08:40 This is a 35 yo male who presented to the ED for scrotal swelling, orthopnea and SOA. Pt has no past medical hx and has not seen a physician in "many years". Pt reports he had two days of testicular swelling as well as generalized swelling and SOA, especially when lying flat. Pt reports his significant other noticed he was having trouble breathing at night. Pt denies previous sleep study or diagnosis of obstructive sleep apnea. Pt reports he takes no medications. Today, pt states he feels better than yesterday, but on exam his is visibly SOA and his oxygen saturation is 79% on 6L NC. Pt was placed on bipap and oxygen saturations increased to 94%. Pt denied fever, chills, chest pain, palpitations, N/V/D, urinary frequency or burning, blurry vision or headache. Subjective/Events-last exam He is feeling better. He continues to have less swelling. He is not short of breath. Objective Exam Vital Signs Vital Signs Date Time Temp Pulse Resp B/P (MAP) Pulse Ox O2 Delivery O2 Flow Rate FiO2 09/26/21 16:00 36.8 112 20 132/75 94 Room Air 09/26/21 08:09 1.00 09/26/21 03:57 21 Capillary Refill : Less Than 3 Seconds General Appearance: No Apparent Distress, Obese Respiratory: No Respiratory Distress, Decreased Breath Sounds Cardiovascular: Regular Rate, Rhythm, No Murmur Gastrointestinal: Normal Bowel Sounds, Soft Extremity: Non Tender, Pedal Edema, Swelling Neurologic/Psychiatric: Alert, No Motor/Sensory Deficits, Normal Mood/Affect Skin: Normal Color, Warm/Dry Results/Procedures Lab Laboratory Tests 09/26/21 03:50 Patient resulted labs reviewed. Imaging: Reviewed Imaging Report Assessment/Plan Assessment and Plan Assess & Plan/Chief Complaint Acute heart failure with reduced ejection fraction CHUY on CKD Cardiorenal syndrome Acute respiratory failure with hypoxia and hypercapnia HTN Likely TITO Morbid obesity Methamphetamine abuse Down >30 L since admission Kidney function stable Continue diuresis Aspirin, Coreg, Imdur Cardiology following Possible stress test or left heart cath for ischemic evaluation Will likely need LifeVest on discharge Supplemental oxygen as needed DVT prophylaxis: Lovenox HTN emergency, resolved Diagnosis/Problems Diagnosis/Problems (1) Acute HFrEF (heart failure with reduced ejection fraction) Status: Acute (2) Acute kidney injury superimposed on chronic kidney disease Status: Acute (3) Acute respiratory failure with hypoxia and hypercapnia Status: Acute (4) TITO (obstructive sleep apnea) Status: Acute (5) Super obese Status: Chronic (6) NSTEMI (non-ST elevation myocardial infarction) Status: Acute (7) Hypertensive emergency Status: Resolved Resolution Date/Time: 09/22/21 @ 19:03 (8) Methamphetamine abuse Status: Acute LENNY SMITH MD Sep 26, 2021 19:04
[2021-09-26] MEDS ORDERED: diphenhydrAMINE 25 MG TAB (BENADRYL) PO PRN (19:45)
[2021-09-26] MEDS ORDERED: polyethylene glycoL POWDER 17 GM (MIRALAX) PACK PO PRN (19:45)
[2021-09-26] MEDS ORDERED: ACETAMINOPHEN 325 MG TABLET PO PRN (19:45)
[2021-09-26] MEDS ORDERED: MELATONIN 3 MG TABLET PO PRN (19:45)
[2021-09-26] MEDS ORDERED: ANTACID SUSP 30 ML UDC (MYLANTA) PO PRN (19:45)
[2021-09-26] MEDS ORDERED: ONDANSETRON 4 MG (ZOFRAN) ORAL DISSOLVE TAB PO PRN (19:45)
[2021-09-26] MEDS ORDERED: ONDANSETRON 4 MG/2 ML (SDV) Z0FRAN IV PRN (19:45)
[2021-09-26] MEDS: DOCUSATE SODIUM 100 MG (COLACE) CAP PO SCH (20:27)
[2021-09-26] MEDS: ENOXAPARIN 40 MG/0.4 ML (LOVENOX) SYR SC SCH (20:27)
[2021-09-26] MEDS: SENNOSIDES 8.6 MG (SENOKOT) TAB PO SCH (20:27)
[2021-09-26 21:37] VITALS: BP 117/70
[2021-09-26 22:05] VITALS: BP 117/70
[2021-09-27 04:57] LABS: BASOPHILS # (AUTO) 0.1 10^3/uL (0.0-0.1); BASOPHILS % (AUTO) 1 % (0-10); EOSINOPHILS # (AUTO) 0.4 10^3/uL (0.0-0.3); EOSINOPHILS % (AUTO) 5 % (0-10); HEMATOCRIT 34 % (40-54); HEMOGLOBIN 10.4 g/dL (13.3-17.7); LYMPHOCYTES # (AUTO) 2.1 10^3/uL (1.0-4.0); LYMPHOCYTES % (AUTO) 29 % (12-44); MEAN CORPUSCULAR HEMOGLOBIN 20 pg (25-34); MEAN CORPUSCULAR HGB CONC 30 g/dL (32-36); MEAN CORPUSCULAR VOLUME 66 fL (80-99); MONOCYTES # (AUTO) 0.9 10^3/uL (0.0-1.0); MONOCYTES % (AUTO) 12 % (0-12); NEUTROPHILS % (AUTO) 53 % (42-75); PLATELET COUNT 396 10^3/uL (130-400); WHITE BLOOD COUNT 7.5 10^3/uL (4.3-11.0)
[2021-09-27 05:11] LABS: ALBUMIN 3.2 GM/DL (3.2-4.5); POTASSIUM 3.5 MMOL/L (3.6-5.0)
[2021-09-27 05:12] LABS: CALCIUM 8.7 MG/DL (8.5-10.1)
[2021-09-27 05:13] LABS: TOTAL PROTEIN 6.6 GM/DL (6.4-8.2)
[2021-09-27 05:15] LABS: BILIRUBIN,TOTAL 0.5 MG/DL (0.1-1.0)
[2021-09-27 05:17] LABS: CREATININE SERUM 2.07 MG/DL (0.60-1.30)
[2021-09-27] MEDS: MAGNESIUM 1 GM/100 ML IVPB 100 ML IV SCH (06:17)
[2021-09-27] MEDS: POTASSIUM CL 10MEQ/50ML IVPB 50 ML IV SCH (06:17)
[2021-09-27 06:47] VITALS: BP 94/64
[2021-09-27] MEDS: KCL 20 MEQ TAB (K-DUR) PO SCH (07:39)
[2021-09-27] MEDS: SENNOSIDES 8.6 MG (SENOKOT) TAB PO SCH ×2 (07:41→20:43)
[2021-09-27] MEDS: DOCUSATE SODIUM 100 MG (COLACE) CAP PO SCH ×2 (07:41→20:43)
[2021-09-27] MEDS ORDERED: KCL 20 MEQ TAB (K-DUR) PO ONE (08:00)
[2021-09-27] MEDS: ASPIRIN 81 MG CHEW (CHILDREN'S ASA) PO SCH (08:26)
[2021-09-27] MEDS: ISOSORBIDE MONONITRATE 60 MG (IMDUR) TAB PO SCH (08:26)
[2021-09-27] MEDS: ENOXAPARIN 40 MG/0.4 ML (LOVENOX) SYR SC SCH ×2 (08:26→20:44)
[2021-09-27] MEDS ORDERED: FUROSEMIDE 40 MG/4 ML INJ (LASIX) IVP SCH (09:00)
--- NOTE | 2021-09-27 10:19 | Progress Note - Hospitalist ---
Subjective HPI/CC On Admission Date Seen by Provider: Sep 27, 2021 Time Seen by Provider: 08:45 This is a 35 yo male who presented to the ED for scrotal swelling, orthopnea and SOA. Pt has no past medical hx and has not seen a physician in "many years". Pt reports he had two days of testicular swelling as well as generalized swelling and SOA, especially when lying flat. Pt reports his significant other noticed he was having trouble breathing at night. Pt denies previous sleep study or diagnosis of obstructive sleep apnea. Pt reports he takes no medications. Today, pt states he feels better than yesterday, but on exam his is visibly SOA and his oxygen saturation is 79% on 6L NC. Pt was placed on bipap and oxygen saturations increased to 94%. Pt denied fever, chills, chest pain, palpitations, N/V/D, urinary frequency or burning, blurry vision or headache. Subjective/Events-last exam He is feeling better. He moved to a private room. He took a shower. He is not short of breath. He denies pain. Objective Exam Vital Signs Vital Signs Date Time Temp Pulse Resp B/P (MAP) Pulse Ox O2 Delivery O2 Flow Rate FiO2 09/27/21 09:00 Room Air 09/27/21 07:00 87 09/27/21 06:47 20 95 21.00 09/27/21 04:00 36.7 09/27/21 04:00 94/64 09/26/21 22:05 21 Capillary Refill : Less Than 3 Seconds General Appearance: No Apparent Distress, Obese Respiratory: No Respiratory Distress, Decreased Breath Sounds Cardiovascular: Regular Rate, Rhythm, No Murmur Gastrointestinal: Normal Bowel Sounds, Soft Extremity: Non Tender, Pedal Edema, Swelling Neurologic/Psychiatric: Alert, Oriented x3, Normal Mood/Affect Skin: Normal Color, Warm/Dry Results/Procedures Lab Laboratory Tests 09/27/21 04:40 Patient resulted labs reviewed. Imaging: Reviewed Imaging Report Assessment/Plan Assessment and Plan Assess & Plan/Chief Complaint Acute heart failure with reduced ejection fraction CHUY on CKD Cardiorenal syndrome Acute respiratory failure with hypoxia and hypercapnia HTN Likely TITO Morbid obesity Methamphetamine abuse Down >30 L since admission Kidney function slightly worsening Decrease Lasix Aspirin, Coreg, Imdur Cardiology following Pending stress test or left heart cath for ischemic evaluation Will likely need LifeVest on discharge Supplemental oxygen as needed DVT prophylaxis: Lovenox HTN emergency, resolved Diagnosis/Problems Diagnosis/Problems (1) Acute HFrEF (heart failure with reduced ejection fraction) Status: Acute (2) Acute kidney injury superimposed on chronic kidney disease Status: Acute (3) Acute respiratory failure with hypoxia and hypercapnia Status: Acute (4) TITO (obstructive sleep apnea) Status: Acute (5) Super obese Status: Chronic (6) NSTEMI (non-ST elevation myocardial infarction) Status: Acute (7) Hypertensive emergency Status: Resolved Resolution Date/Time: 09/22/21 @ 19:03 (8) Methamphetamine abuse Status: Acute LENNY SMITH MD Sep 27, 2021 10:19
--- NOTE | 2021-09-27 10:20 | Cardiology Progress Note ---
Subjective Date Seen by Provider: Sep 27, 2021 Time Seen by Provider: 10:18 Subjective/Events-last exam Patient is laying down in bed, feeling better, breathing better, not requiring any oxygen. Review of Systems General: No Chills, No Night Sweats; Fatigue; No Malaise, No Appetite, No Other HEENT: No Head Aches, No Visual Changes, No Eye Pain, No Ear Pain, No Dyspha suleiman, No Sinus Congestion, No Post Nasal Drip, No Sore Throat, No Other Pulmonary: No Dyspnea, No Cough, No Pleuritic Chest Pain, No Other Cardiovascular: No: Chest Pain, Palpitations, Orthopnea, Paroxysmal Noc. Dyspnea, Edema, Lt Headedness, Other Objective-Cardiology Exam Last Set of Vital Signs Vital Signs 09/26/21 09/27/21 09/27/21 09/27/21 09/27/21 22:05 04:00 06:47 07:00 09:00 Temp 36.7 Pulse 87 Resp 20 B/P (MAP) 94/64 Pulse Ox 95 O2 Delivery Room Air O2 Flow Rate 21.00 FiO2 21 I&O Intake and Output 09/27/21 00:00 Intake Total 1100 ml Output Total 3100 ml Balance -2000 ml Intake Oral 1100 ml Output Urine Total 3100 ml General: Alert, Oriented X3, Cooperative HEENT: Atraumatic, PERRLA Neck: Supple, No JVD, No Thyromegaly Lungs: Clear to Auscultation, Normal Air Movement Heart: Regular Rate, Normal S1, Normal S2, No Murmurs Abdomen: Normal Bowel Sounds, Soft, No Tenderness, No Hepatosplenomegaly, No Masses Extremities: No Clubbing, No Cyanosis, No Edema, Normal Pulses, No Tenderness/Swelling Skin: No Rashes, No Breakdown, No Significant Lesion Neuro: Normal Gait, Normal Speech, Strength at 5/5 X4 Ext, Normal Tone, Sensation Intact Psych/Mental Status: Mental Status NL, Mood NL Results Lab Laboratory Tests 09/27/21 04:40 A/P-Cardiology Admission Diagnosis Congestive heart failure Acute renal failure Hypertensive emergency Acute respiratory failure Assessment/Plan Congestive heart failure, acute on chronic left ventricular systolic dysfunction with volume overload, responding to diuretics. Unknown etiology, could be secondary to coronary artery disease, cardiac catheterization has been postponed due to his renal insufficiency. Maintained on Lasix 40 mg twice daily, I am changing Lasix to oral Responded well to diuretics, improved at this time. Managed by Dr. Marino for possible cardiac catheterization versus stress testing Sinus tachycardia, probably secondary to intravascular volume depletion, continue to monitor closely Questionable coronary artery disease as a cause for his congestive heart failure, managed by Dr. Reyes, considering cardiac catheterization once his renal function are better Increased risk of sudden , planning to have a LifeVest prior to discharge and possible ICD if he did not respond to treatment Hypertensive emergency, blood pressure is better. Continue to monitor Acute on chronic renal failure, renal function improving slowly. Continue to monitor Morbid obesity, BMI 53, we discussed weight loss. History of methamphetamine abuse. High risk for sleep apnea EMPERATRIZ VELA MD Sep 27, 2021 10:19
[2021-09-27] MEDS: FUROSEMIDE 40 MG (LASIX) TAB PO SCH (16:09)
[2021-09-27 18:36] VITALS: BP 101/67
[2021-09-28 05:01] LABS: BASOPHILS # (AUTO) 0.1 10^3/uL (0.0-0.1); BASOPHILS % (AUTO) 1 % (0-10); EOSINOPHILS # (AUTO) 0.3 10^3/uL (0.0-0.3); EOSINOPHILS % (AUTO) 5 % (0-10); HEMATOCRIT 35 % (40-54); HEMOGLOBIN 10.7 g/dL (13.3-17.7); LYMPHOCYTES # (AUTO) 2.2 10^3/uL (1.0-4.0); LYMPHOCYTES % (AUTO) 30 % (12-44); MEAN CORPUSCULAR HEMOGLOBIN 20 pg (25-34); MEAN CORPUSCULAR HGB CONC 30 g/dL (32-36); MEAN CORPUSCULAR VOLUME 66 fL (80-99); MEAN PLATELET VOLUME 10.4 fL (9.0-12.2); MONOCYTES # (AUTO) 0.9 10^3/uL (0.0-1.0); MONOCYTES % (AUTO) 13 % (0-12); NEUTROPHILS # (AUTO) 3.7 10^3/uL (1.8-7.8); NEUTROPHILS % (AUTO) 51 % (42-75); PLATELET COUNT 428 10^3/uL (130-400); WHITE BLOOD COUNT 7.2 10^3/uL (4.3-11.0)
[2021-09-28 05:14] LABS: ALBUMIN 3.2 GM/DL (3.2-4.5)
[2021-09-28 05:15] LABS: POTASSIUM 3.8 MMOL/L (3.6-5.0)
[2021-09-28 05:16] LABS: CALCIUM 8.9 MG/DL (8.5-10.1)
[2021-09-28 05:17] LABS: TOTAL PROTEIN 6.7 GM/DL (6.4-8.2)
[2021-09-28 05:19] LABS: BILIRUBIN,TOTAL 0.5 MG/DL (0.1-1.0)
[2021-09-28 05:21] LABS: CREATININE SERUM 2.14 MG/DL (0.60-1.30)
[2021-09-28] MEDS: POTASSIUM CL 10MEQ/50ML IVPB 50 ML IV SCH (05:26)
[2021-09-28] MEDS: KCL 20 MEQ TAB (K-DUR) PO SCH (05:26)
[2021-09-28] MEDS: MAGNESIUM 1 GM/100 ML IVPB 100 ML IV SCH (06:16)
[2021-09-28] MEDS: FUROSEMIDE 40 MG (LASIX) TAB PO SCH (06:22)
[2021-09-28] MEDS: ISOSORBIDE MONONITRATE 60 MG (IMDUR) TAB PO SCH (07:57)
[2021-09-28] MEDS: ASPIRIN 81 MG CHEW (CHILDREN'S ASA) PO SCH (07:57)
[2021-09-28] MEDS: SENNOSIDES 8.6 MG (SENOKOT) TAB PO SCH ×2 (07:58→21:09)
[2021-09-28] MEDS: DOCUSATE SODIUM 100 MG (COLACE) CAP PO SCH ×2 (07:58→21:09)
[2021-09-28] MEDS: ENOXAPARIN 40 MG/0.4 ML (LOVENOX) SYR SC SCH ×2 (07:59→21:09)
--- NOTE | 2021-09-28 10:46 | Cardiology Progress Note ---
Progress Note-Cardiology Events since last exam Date Seen by Provider: Sep 28, 2021 Time Seen by Provider: 10:45 Events since last exam I am following him due to heart failure with reduced ejection fraction in the setting of severe cardiomyopathy both of which are new diagnoses for the patient. He also had a probable type II non-ST elevation myocardial infarction. His creatinine had started to improve earlier in the week but is now again trending upwards. I have changed his intravenous furosemide over to oral dosing once daily. He already received 1 dose of intravenous furosemide this morning. His breathing is much improved. His peripheral edema has resolved. He denies chest pain, palpitations, or syncope. Certain portions of this document may have been dictated utilizing voice recognition technology. Inherent to this technology, typographical and grammatical errors may exist. As much as I am diligent to identify and correct these mistakes, some errors may remain in the document. Vitals Last set of Vitals Signs Vital Signs 09/26/21 09/27/21 09/28/21 09/28/21 22:05 18:36 08:00 08:55 Temp 36.6 Pulse 95 Resp 18 B/P (MAP) 118/62 Pulse Ox 95 O2 Delivery Room Air O2 Flow Rate 21.00 FiO2 21 Labs Labs Laboratory Tests 09/28/21 04:51 Exam Vital Signs Vital Signs Date Time Temp Pulse Resp B/P (MAP) Pulse Ox O2 Delivery O2 Flow Rate FiO2 09/28/21 08:55 Room Air 09/28/21 08:00 36.6 95 18 118/62 95 09/27/21 18:36 21.00 09/26/21 22:05 21 Physical Exam General: Alert. No acute distress. He is morbidly obese. Eye: No xanthelasma. HENT: Normocephalic. Neck: Jugular venous pressure does not appear elevated. Respiratory: Lungs are clear to auscultation. Respirations are non-labored. Br eath sounds are equal. Symmetrical chest wall expansion. Cardiovascular: Normal rate. Regular rhythm. No murmur. No gallop. No edema. Gastrointestinal: Soft. Normal bowel sounds. Skin: Warm. Dry. Neurologic: Alert and oriented to person, place, time. Cranial nerves 3-11 grossly intact. Psychiatric: Cooperative. Appropriate mood & affect. Labs Laboratory Tests Test 09/28/21 04:51 Range/Units White Blood Count 7.2 4.3-11.0 10^3/uL Red Blood Count 5.33 4.30-5.52 10^6/uL Hemoglobin 10.7 L 13.3-17.7 g/dL Hematocrit 35 L 40-54 % Mean Corpuscular Volume 66 L 80-99 fL Mean Corpuscular Hemoglobin 20 L 25-34 pg Mean Corpuscular Hemoglobin Concent 30 L 32-36 g/dL Red Cell Distribution Width 16.6 H 10.0-14.5 % Platelet Count 428 H 130-400 10^3/uL Mean Platelet Volume 10.4 9.0-12.2 fL Immature Granulocyte % (Auto) 1 % Neutrophils (%) (Auto) 51 42-75 % Lymphocytes (%) (Auto) 30 12-44 % Monocytes (%) (Auto) 13 H 0-12 % Eosinophils (%) (Auto) 5 0-10 % Basophils (%) (Auto) 1 0-10 % Neutrophils # (Auto) 3.7 1.8-7.8 10^3/uL Lymphocytes # (Auto) 2.2 1.0-4.0 10^3/uL Monocytes # (Auto) 0.9 0.0-1.0 10^3/uL Eosinophils # (Auto) 0.3 0.0-0.3 10^3/uL Basophils # (Auto) 0.1 0.0-0.1 10^3/uL Immature Granulocyte # (Auto) 0.1 0.0-0.1 10^3/uL Sodium Level 138 135-145 MMOL/L Potassium Level 3.8 3.6-5.0 MMOL/L Chloride Level 95 L 98-107 MMOL/L Carbon Dioxide Level 30 21-32 MMOL/L Anion Gap 13 5-14 MMOL/L Blood Urea Nitrogen 25 H 7-18 MG/DL Creatinine 2.14 H 0.60-1.30 MG/DL Estimat Glomerular Filtration Rate 40 BUN/Creatinine Ratio 12 Glucose Level 106 H 70-105 MG/DL Calcium Level 8.9 8.5-10.1 MG/DL Corrected Calcium 9.5 8.5-10.1 MG/DL Total Bilirubin 0.5 0.1-1.0 MG/DL Aspartate Amino Transf (AST/SGOT) 25 5-34 U/L Alanine Aminotransferase (ALT/SGPT) 35 0-55 U/L Alkaline Phosphatase 70 40-136 U/L Total Protein 6.7 6.4-8.2 GM/DL Albumin 3.2 3.2-4.5 GM/DL Diagnosis/Problems Diagnosis/Problems (1) Acute HFrEF (heart failure with reduced ejection fraction) Status: Acute Assessment & Plan: He is symptomatically improved. His renal function had improved but over the past 48 hours his trending downward again. He is on carvedilol and nitrates. I had him on hydralazine but this was stopped by the hospitalist a few days ago. I will restart hydralazine. Combination of hydralazine and nitrates is an acceptable alternative to NORRIS inhibitor or ARB. He is not presently a good candidate for NORRIS inhibitor, ARB or spironolactone due to acute kidney injury. He may be ready for discharge tomorrow. (2) Cardiomyopathy Assessment & Plan: His echocardiogram from 09/19 showed severe left ventricular systolic dysfunction with an estimated ejection fraction of 20-25%. Exact etiology unclear. We will continue the present guideline directed medical therapy as outlined above. In light of the very low ejection fraction, in my opinion, a stress test would not help with management. Even if he had a normal stress test, I would still recommend a cardiac catheterization. Unfortunately, due to his tenuous renal function, I recommend that we wait to do a cardiac catheterization as an outpatient. This will hopefully give his renal function more time to improve and stabilize. I have changed his furosemide over to oral. I will restart hydralazine as above. In light of the low ejection fraction with superimposed probable acute myocardial infarction, he has at increased risk of sudden cardiac . As such, I will order a LifeVest for primary prev ention. Once we have him on the maximum tolerated doses of medication for the cardiomyopathy as an outpatient, he will need a follow-up echocardiogram 2-3 months later. At that time we can determine whether or not he may need a prophylactic defibrillator. (3) Primary hypertension Assessment & Plan: His blood pressures are reasonably controlled with the present medication for heart failure. We will titrate up as tolerated. (4) Elevated troponin Assessment & Plan: This was probably a type II non-ST elevation myocardial infarction due to supply/demand mismatch related to the hypertensive emergency on top of heart failure as well as some component of noncardiac troponin elevation due to the acute kidney injury. Ultimately, he will probably benefit from cardiac catheterization but I think it is best to hold off for a few weeks due to his tenuous renal function as outlined above. (5) Hypertensive emergency Status: Resolved Assessment & Plan: He had markedly elevated blood pressures with evidence of acute heart failure at the time of admission. This has resolved. He is now on oral medication due to cardiomyopathy and heart failure as outlined above. Resolution Date/Time: 09/22/21 @ 19:03 (6) Acute kidney injury Status: Acute Assessment & Plan: This will need to be monitored closely. We do not know his baseline renal function because he does not normally go to doctors. His creatinine was initially getting worse, then improved, but is now getting worse again. I will change the furosemide over to oral and obtain a follow-up metabolic panel in the morning. (7) Morbid obesity Status: Acute Assessment & Plan: He needs to work on weight loss. If he cannot lose a significant amount of weight over the next 6-12 months, I would consider referring him for bariatric consultation at that time. JAH CANNON JR, MD Sep 28, 2021 10:46
[2021-09-28] MEDS ORDERED: ASPI81TA64 PO (10:57)
[2021-09-28] MEDS ORDERED: ISOS60TA63 PO (10:57)
[2021-09-28] MEDS ORDERED: FURO40TA4 PO (10:57)
[2021-09-28] MEDS ORDERED: CARV3.122 PO (10:57)
[2021-09-28] MEDS: hydrALAZINE (APRESOLINE) 25 MG TAB PO SCH ×2 (14:50→21:09)
--- NOTE | 2021-09-28 16:38 | Progress Note - Hospitalist ---
Subjective HPI/CC On Admission Date Seen by Provider: Sep 28, 2021 Time Seen by Provider: 09:20 This is a 35 yo male who presented to the ED for scrotal swelling, orthopnea and SOA. Pt has no past medical hx and has not seen a physician in "many years". Pt reports he had two days of testicular swelling as well as generalized swelling and SOA, especially when lying flat. Pt reports his significant other noticed he was having trouble breathing at night. Pt denies previous sleep study or diagnosis of obstructive sleep apnea. Pt reports he takes no medications. Today, pt states he feels better than yesterday, but on exam his is visibly SOA and his oxygen saturation is 79% on 6L NC. Pt was placed on bipap and oxygen saturations increased to 94%. Pt denied fever, chills, chest pain, palpitations, N/V/D, urinary frequency or burning, blurry vision or headache. Subjective/Events-last exam He is sitting in his chair. He is feeling better. He denies shortness of breath. He is feeling ready to go home. Objective Exam Vital Signs Vital Signs Date Time Temp Pulse Resp B/P (MAP) Pulse Ox O2 Delivery O2 Flow Rate FiO2 09/28/21 16:30 Room Air 0.00 09/28/21 13:00 104 09/28/21 11:50 36.3 24 129/66 96 09/26/21 22:05 21 Capillary Refill : Less Than 3 Seconds General Appearance: No Apparent Distress, Obese Respiratory: Lungs Clear, No Respiratory Distress Cardiovascular: Regular Rate, Rhythm, No Murmur Gastrointestinal: Normal Bowel Sounds, Soft Extremity: Non Tender, Pedal Edema, Swelling Neurologic/Psychiatric: Alert, No Motor/Sensory Deficits Skin: Normal Color, Warm/Dry Results/Procedures Lab Laboratory Tests 09/28/21 04:51 Patient resulted labs reviewed. Imaging: Reviewed Imaging Report Assessment/Plan Assessment and Plan Assess & Plan/Chief Complaint Acute heart failure with reduced ejection fraction CHUY on CKD Cardiorenal syndrome Acute respiratory failure with hypoxia and hypercapnia HTN Likely TITO Morbid obesity Methamphetamine abuse Down >34 L since admission Kidney function relatively stable Continue Lasix Aspirin, Coreg, Imdur Cardiology following Working on setting up LifeVest Supplemental oxygen as needed DVT prophylaxis: Lovenox HTN emergency, resolved Diagnosis/Problems Diagnosis/Problems (1) Acute HFrEF (heart failure with reduced ejection fraction) Status: Acute (2) Acute kidney injury superimposed on chronic kidney disease Status: Acute (3) Acute respiratory failure with hypoxia and hypercapnia Status: Acute (4) TITO (obstructive sleep apnea) Status: Acute (5) Super obese Status: Chronic (6) NSTEMI (non-ST elevation myocardial infarction) Status: Acute (7) Hypertensive emergency Status: Resolved Resolution Date/Time: 09/22/21 @ 19:03 (8) Methamphetamine abuse Status: Acute LENNY SMITH MD Sep 28, 2021 16:38
[2021-09-29 04:55] LABS: BASOPHILS # (AUTO) 0.1 10^3/uL (0.0-0.1); BASOPHILS % (AUTO) 1 % (0-10); EOSINOPHILS # (AUTO) 0.3 10^3/uL (0.0-0.3); EOSINOPHILS % (AUTO) 4 % (0-10); HEMATOCRIT 34 % (40-54); HEMOGLOBIN 10.4 g/dL (13.3-17.7); LYMPHOCYTES # (AUTO) 2.3 10^3/uL (1.0-4.0); LYMPHOCYTES % (AUTO) 30 % (12-44); MEAN CORPUSCULAR HEMOGLOBIN 20 pg (25-34); MEAN CORPUSCULAR HGB CONC 30 g/dL (32-36); MEAN CORPUSCULAR VOLUME 66 fL (80-99); MEAN PLATELET VOLUME 9.6 fL (9.0-12.2); MONOCYTES # (AUTO) 0.9 10^3/uL (0.0-1.0); MONOCYTES % (AUTO) 12 % (0-12); NEUTROPHILS % (AUTO) 53 % (42-75); PLATELET COUNT 425 10^3/uL (130-400); WHITE BLOOD COUNT 7.6 10^3/uL (4.3-11.0)
[2021-09-29 05:07] LABS: ALBUMIN 3.1 GM/DL (3.2-4.5)
[2021-09-29 05:08] LABS: POTASSIUM 3.9 MMOL/L (3.6-5.0)
[2021-09-29 05:09] LABS: CALCIUM 8.7 MG/DL (8.5-10.1)
[2021-09-29 05:10] LABS: TOTAL PROTEIN 6.5 GM/DL (6.4-8.2)
[2021-09-29 05:12] LABS: BILIRUBIN,TOTAL 0.4 MG/DL (0.1-1.0)
[2021-09-29 05:14] LABS: CREATININE SERUM 2.07 MG/DL (0.60-1.30)
[2021-09-29] MEDS: MAGNESIUM 1 GM/100 ML IVPB 100 ML IV SCH (06:12)
[2021-09-29] MEDS: POTASSIUM CL 10MEQ/50ML IVPB 50 ML IV SCH (06:12)
[2021-09-29] MEDS: KCL 20 MEQ TAB (K-DUR) PO SCH (06:13)
[2021-09-29] MEDS: hydrALAZINE (APRESOLINE) 25 MG TAB PO SCH ×2 (07:32→14:30)
[2021-09-29] MEDS: ASPIRIN 81 MG CHEW (CHILDREN'S ASA) PO SCH (08:14)
[2021-09-29] MEDS: ENOXAPARIN 40 MG/0.4 ML (LOVENOX) SYR SC SCH (08:14)
[2021-09-29] MEDS: ISOSORBIDE MONONITRATE 60 MG (IMDUR) TAB PO SCH (08:14)
[2021-09-29] MEDS: DOCUSATE SODIUM 100 MG (COLACE) CAP PO SCH (08:14)
[2021-09-29] MEDS: SENNOSIDES 8.6 MG (SENOKOT) TAB PO SCH (08:14)
--- NOTE | 2021-09-29 08:30 | Cardiology Progress Note ---
Progress Note-Cardiology Events since last exam Date Seen by Provider: Sep 29, 2021 Time Seen by Provider: 08:28 Events since last exam I am following him due to heart failure with reduced ejection fraction in the setting of severe cardiomyopathy both of which are new diagnoses for the patient. He also had a probable type II non-ST elevation myocardial infarction. His breathing is much improved. His peripheral edema has resolved. He denies chest pain, palpitations, or syncope. I changed his intravenous furosemide over to once daily oral dosing on 09/28 and his renal function is again improving. Certain portions of this document may have been dictated utilizing voice recognition technology. Inherent to this technology, typographical and grammatical errors may exist. As much as I am diligent to identify and correct these mistakes, some errors may remain in the document. Vitals Last set of Vitals Signs Vital Signs 09/26/21 09/29/21 22:05 08:06 Temp 36.1 Pulse 97 Resp 16 B/P (MAP) 112/75 Pulse Ox 95 O2 Delivery NIV Bilevel O2 Flow Rate 21.00 FiO2 21 Labs Labs Laboratory Tests 09/29/21 04:40 Exam Vital Signs Vital Signs Date Time Temp Pulse Resp B/P (MAP) Pulse Ox O2 Delivery O2 Flow Rate FiO2 09/29/21 08:06 36.1 97 16 112/75 95 NIV Bilevel 21.00 09/26/21 22:05 21 Physical Exam General: Alert. No acute distress. He is morbidly obese. Eye: No xanthelasma. HENT: Normocephalic. Neck: Jugular venous pressure does not appear elevated. Respiratory: Lungs are clear to auscultation. Respirations are non-labored. Breath sounds are equal. Symmetrical chest wall expansion. Cardiovascular: Normal rate. Regular rhythm. No murmur. No gallop. No edema. Gastrointestinal: Soft. Normal bowel sounds. Skin: Warm. Dry. Neurologic: Alert and oriented to person, place, time. Cranial nerves 3-11 grossly intact. Psychiatric: Cooperative. Appropriate mood & affect. Labs Laboratory Tests Test 09/29/21 04:40 Range/Units White Blood Count 7.6 4.3-11.0 10^3/uL Red Blood Count 5.19 4.30-5.52 10^6/uL Hemoglobin 10.4 L 13.3-17.7 g/dL Hematocrit 34 L 40-54 % Mean Corpuscular Volume 66 L 80-99 fL Mean Corpuscular Hemoglobin 20 L 25-34 pg Mean Corpuscular Hemoglobin Concent 30 L 32-36 g/dL Red Cell Distribution Width 17.3 H 10.0-14.5 % Platelet Count 425 H 130-400 10^3/uL Mean Platelet Volume 9.6 9.0-12.2 fL Immature Granulocyte % (Auto) 1 % Neutrophils (%) (Auto) 53 42-75 % Lymphocytes (%) (Auto) 30 12-44 % Monocytes (%) (Auto) 12 0-12 % Eosinophils (%) (Auto) 4 0-10 % Basophils (%) (Auto) 1 0-10 % Neutrophils # (Auto) 4.0 1.8-7.8 10^3/uL Lymphocytes # (Auto) 2.3 1.0-4.0 10^3/uL Monocytes # (Auto) 0.9 0.0-1.0 10^3/uL Eosinophils # (Auto) 0.3 0.0-0.3 10^3/uL Basophils # (Auto) 0.1 0.0-0.1 10^3/uL Immature Granulocyte # (Auto) 0.0 0.0-0.1 10^3/uL Sodium Level 137 135-145 MMOL/L Potassium Level 3.9 3.6-5.0 MMOL/L Chloride Level 97 L 98-107 MMOL/L Carbon Dioxide Level 28 21-32 MMOL/L Anion Gap 12 5-14 MMOL/L Blood Urea Nitrogen 25 H 7-18 MG/DL Creatinine 2.07 H 0.60-1.30 MG/DL Estimat Glomerular Filtration Rate 42 BUN/Creatinine Ratio 12 Glucose Level 112 H 70-105 MG/DL Calcium Level 8.7 8.5-10.1 MG/DL Corrected Calcium 9.4 8.5-10.1 MG/DL Total Bilirubin 0.4 0.1-1.0 MG/DL Aspartate Amino Transf (AST/SGOT) 24 5-34 U/L Alanine Aminotransferase (ALT/SGPT) 31 0-55 U/L Alkaline Phosphatase 68 40-136 U/L Total Protein 6.5 6.4-8.2 GM/DL Albumin 3.1 L 3.2-4.5 GM/DL Diagnosis/Problems Diagnosis/Problems (1) Acute HFrEF (heart failure with reduced ejection fraction) Status: Acute Assessment & Plan: He is symptomatically improved. His renal function improving. He is on carvedilol and nitrates. I had him on hydralazine but this was stopped by the hospitalist a few days ago. I restarted hydralazine on 09/28. The combination of hydralazine and nitrates is an acceptable alternative to NORRIS inhibitor or ARB. He is not presently a good candidate for NORRIS inhibitor, ARB or spironolactone due to acute kidney injury. From a cardiac standpoint, he can be discharged home today. I have requested nursing to schedule him for an appointment to see me in 1 week. I have transmitted all of his cardiac medications to [facility] pharmacy. (2) Cardiomyopathy Assessment & Plan: His echocardiogram from 09/19 showed severe left ventricular systolic dysfunction with an estimated ejection fraction of 20-25%. Exact etiology unclear. We will continue the present guideline directed medical therapy as outlined above. In light of the very low ejection fraction, in my opinion, a stress test would not help with management. This is because with such a low ejection fraction, the false positive and false negative rate of nuclear stress is increased and makes the test somewhat unreliable. Unfortunately, due to his tenuous renal function, I recommend that we wait to do a cardiac catheterization as an outpatient. This will hopefully give his renal function more time to improve and stabilize. I have changed his furosemide over to oral. In light of the low ejection fraction with superimposed probable acute myocardial infarction, he has at increased risk of sudden cardiac . As such, I ordered a LifeVest for primary prevention. If this is not ready for him today, he can be fitted at home. Waiting for a LifeVest before discharge is not necessary. Once we have him on the maximum tolerated doses of medication for the cardiomyopathy as an outpatient, he will need a follow-up echocardiogram 2-3 months later. At that time we can determine whether or not he may need a prophylactic defibrillator. (3) Primary hypertension Assessment & Plan: His blood pressures are reasonably controlled with the present medication for heart failure. We will titrate up as tolerated after discharge. (4) Elevated troponin Assessment & Plan: This was probably a type II non-ST elevation myocardial infarction due to supply/demand mismatch related to the hypertensive emergency on top of heart failure as well as some component of noncardiac troponin elevation due to the acute kidney injury. Ultimately, he will probably benefit from cardiac catheterization but I think it is best to hold off for a few weeks due to his tenuous renal function as outlined above. (5) Hypertensive emergency Status: Resolved Assessment & Plan: He had markedly elevated blood pressures with evidence of acute heart failure at the time of admission. This has resolved. He is now on oral medication due to cardiomyopathy and heart failure as outlined above. Resolution Date/Time: 09/22/21 @ 19:03 (6) Acute kidney injury Status: Acute Assessment & Plan: This will need to be monitored closely. We do not know his baseline renal function because he does not normally go to doctors. His creatinine was initially getting worse, then improved, but is now getting worse again. I will change the furosemide over to oral and obtain a follow-up metabolic panel in the morning. (7) Morbid obesity Status: Acute Assessment & Plan: He needs to work on weight loss. If he cannot lose a significant amount of weight over the next 6-12 months, I would consider referring him for bariatric consultation at that time. JAH CANNON JR, MD Sep 29, 2021 08:30
[2021-09-29] MEDS ORDERED: HYDR-3923 PO (08:31)
[2021-09-29] MEDS ORDERED: FUROSEMIDE 40 MG (LASIX) TAB PO SCH (09:00)
[2021-09-29 16:41] VITALS: BP 102/67
--- NOTE | 2021-09-29 20:33 | Discharge Summary ---
Discharge Summary Hospital Course Problems/Dx: (1) Acute HFrEF (heart failure with reduced ejection fraction) Status: Acute (2) Cardiomyopathy Status: Acute (3) Primary hypertension Status: Acute (4) Elevated troponin Status: Acute (5) Hypertensive emergency Status: Resolved (6) Morbid obesity Status: Acute (7) Acute kidney injury superimposed on chronic kidney disease Status: Acute (8) Acute respiratory failure with hypoxia and hypercapnia Status: Acute (9) Super obese Status: Chronic Hospital Course Date of Admission: Sep 18, 2021 at 16:12 Admission Diagnosis : Hypertensive emergency Family Physician/Provider: Janice Brown Physician Date of Discharge: 09/29/21 Discharge Diagnosis: Acute heart failure with reduced ejection fraction, acute kidney injury superimposed on chronic kidney disease Hospital Course: Quan Fox is a 35 year old male who was admitted with hypertensive emergency. He was severely fluid overloaded. He was found to have new onset heart failure with reduced ejection fraction. He also had acute kidney injury superimposed on chronic kidney disease. He was suffering from cardiorenal syndrome. He required IV dobutamine and Lasix. He diuresed well and was down 35 liters at the time of discharge. His course was complicated by acute respiratory failure with hypoxia and hypercapnia. He likely has underlying obstructive sleep apnea. He required BiPAP initially. He will need an outpatient sleep study to evaluate for sleep apnea. He was no longer requiring supplemental oxygen at the time of discharge. He was started on aspirin, coreg, lasix, imdur, and hydralazine on discharge. He has a follow up appointment scheduled with [facility]. He should follow up with Cardiology. He was discharged home in stable condition. Labs and Pending Lab Test: Laboratory Tests 09/29/21 04:40: White Blood Count 7.6, Red Blood Count 5.19, Hemoglobin 10.4L, Hematocrit 34L, Mean Corpuscular Volume 66L, Mean Corpuscular Hemoglobin 20L, Mean Corpuscular Hemoglobin Concent 30L, Red Cell Distribution Width 17.3H, Platelet Count 425H, Mean Platelet Volume 9.6, Immature Granulocyte % (Auto) 1, Neutrophils (%) (Auto) 53, Lymphocytes (%) (Auto) 30, Monocytes (%) (Auto) 12, Eosinophils (%) (Auto) 4, Basophils (%) (Auto) 1, Neutrophils # (Auto) 4.0, Lymphocytes # (Auto) 2.3, Monocytes # (Auto) 0.9, Eosinophils # (Auto) 0.3, Basophils # (Auto) 0.1, Immature Granulocyte # (Auto) 0.0, Sodium Level 137, Potassium Level 3.9, Chloride Level 97L, Carbon Dioxide Level 28, Anion Gap 12, Blood Urea Nitrogen 25H, Creatinine 2.07H, Estimat Glomerular Filtration Rate 42, BUN/Creatinine Ratio 12, Glucose Level 112H, Calcium Level 8.7, Corrected Calcium 9.4, Total Bilirubin 0.4, Aspartate Amino Transf (AST/SGOT) 24, Alanine Aminotransferase (ALT/SGPT) 31, Alkaline Phosphatase 68, Total Protein 6.5, Albumin 3.1L Microbiology 09/19/21 MRSA Screen - Final, Complete MRSA not isolated 09/18/21 Blood Culture - Final, Complete No growth Home Meds Active Hydralazine HCl 25 Mg Tablet 25 Mg PO Q8HR Furosemide 40 Mg Tablet 40 Mg PO DAILY Children's Aspirin (Aspirin) 81 Mg Tab.chew 81 Mg PO DAILY@0900 Carvedilol 3.125 Mg Tablet 12.5 Mg PO BID Isosorbide Mononitrate ER (Isosorbide Mononitrate) 60 Mg Tab 60 Mg PO DAILY Assessment/Pt Instructions See instructions Discharge Planning: >30 minutes discharge planning Discharge Instructions Discharge Diet: Low Sodium Diet Activity as Tolerated: Yes Consultations Cardiology Discharge Physical Examination Vital Signs Vital Signs Date Time Temp Pulse Resp B/P (MAP) Pulse Ox O2 Delivery O2 Flow Rate FiO2 09/29/21 16:41 36.0 90 28 102/67 94 Room Air 0.00 09/26/21 22:05 21 General Appearance: No Apparent Distress, Obese Respiratory: Lungs Clear, No Respiratory Distress Cardiovascular: Regular Rate, Rhythm, No Murmur Gastrointestinal: Normal Bowel Sounds, Soft Extremity: Non Tender, Pedal Edema, Swelling Skin: Normal Color, Warm/Dry Neurologic/Psychiatric: Alert, Oriented x3, No Motor/Sensory Deficits Allergies: Coded Allergies: No Known Drug Allergies (Unverified , 09/18/21) Copy Copies To 1: [facility] [place] Discharge Summary Date of Admission Sep 18, 2021 at 16:12 Date of Discharge Sep 29, 2021 at 16:37 Discharge Date: Sep 29, 2021 Discharge Time: 16:37 Admission Diagnosis HTN emergency Consults/Procedures Consulations Cardiology Discharge Diagnosis Acute heart failure with reduced ejection fraction CHUY on CKD Cardiorenal syndrome Acute respiratory failure with hypoxia and hypercapnia HTN Likely TITO Morbid obesity Methamphetamine abuse Down >34 L since admission Kidney function relatively stable Continue Lasix Aspirin, Coreg, Imdur Cardiology following Working on setting up [employer] Supplemental oxygen as needed DVT prophylaxis: Lovenox HTN emergency, resolved (1) Acute HFrEF (heart failure with reduced ejection fraction) Status: Acute (2) Cardiomyopathy Status: Acute (3) Primary hypertension Status: Acute (4) Elevated troponin Status: Acute (5) Hypertensive emergency Status: Resolved (6) Morbid obesity Status: Acute (7) Acute kidney injury superimposed on chronic kidney disease Status: Acute (8) Acute respiratory failure with hypoxia and hypercapnia Status: Acute LENNY SMITH MD Sep 29, 2021 20:05
== END 2021-09-29 16:37 | disposition home or self-care (01) | DRG 280 ==
LOC: ER 14:12 → ICU 16:12 → EDBD 16:12 → CSD 09-26 14:40
PROVIDERS: ADMIT Internal Medicine; ATTEND Internal Medicine
PROC: 02HV33Z Insertion of Infusion Device into Superior Vena Cava, Percutaneous Approach (ICD-10-PCS; principal; 2021-09-19)
DX: I16.1 Hypertensive emergency (principal); I21.A1 Myocardial infarction type 2; J96.01 Acute respiratory failure with hypoxia; I50.21 Acute systolic (congestive) heart failure; J96.02 Acute respiratory failure with hypercapnia; N17.0 Acute kidney failure with tubular necrosis; N17.9 Acute kidney failure, unspecified; Z68.43 Body mass index [BMI] 50.0-59.9, adult; I42.9 Cardiomyopathy, unspecified; T82.838A Hemorrhage due to vascular prosthetic devices, implants and grafts, initial encounter; E66.01 Morbid (severe) obesity due to excess calories; I13.0 Hypertensive heart and chronic kidney disease with heart failure and stage 1 through stage 4 chronic kidney disease, or unspecified chronic kidney disease; N18.9 Chronic kidney disease, unspecified; G47.33 Obstructive sleep apnea (adult) (pediatric); F15.10 Other stimulant abuse, uncomplicated; R60.1 Generalized edema; Z87.891 Personal history of nicotine dependence; R31.9 Hematuria, unspecified; I87.2 Venous insufficiency (chronic) (peripheral); Z20.822 Contact with and (suspected) exposure to COVID-19; N50.89 Other specified disorders of the male genital organs
CPT/HCPCS: 36415; 71045; 71046; 80048; 80053; 80061; 80306; 81000; 82550; 82728; 82805; 82947; 83540; 83550; 83735; 83880; 84100; 84145; 84484; 85007; 85014; 85018; 85025; 85027; 85379; 85610; 85730; 87040; 87081; 87636; 93005; 93306; 93970; 94660; 94664; 94760; 96365; 96372; 96375

== ENCOUNTER 2022-01-15 03:59 | Inpatient (IN) | payer SELFPAY ==
[2022-01-15] VITALS (12 sets, daily range): BP systolic 126–168; BP diastolic 79–127
[~2022-01-15] VITALS: Ht 175 cm; Wt 136.4 kg
[~2022-01-15 03:59] MED LIST: ASPI81TA64 PO; CARV3.122 PO; FURO40TA4 PO; HYDR-3923 PO; ISOS60TA63 PO
[2022-01-15] MEDS ORDERED: ASPIRIN 81 MG CHEW (CHILDREN'S ASA) PO STA (04:18)
--- NOTE | 2022-01-15 04:23 | ED Dyspnea ---
General Stated Complaint: CONGESTIVE HEART FAILURE,FLUID RETENTION,SOA Source of Information: Patient Exam Limitations: No Limitations History of Present Illness Date Seen by Provider: January 15, 2022 Time Seen by Provider: 04:15 Initial Comments This is a 36-year-old male who presents to the emergency department by private vehicle with a chief complaint of increasing shortness of breath, generalized weakness, orthopnea over the course of the last week and a half. The patient was admitted at the end of August of this year with a new diagnosis of congestive cardiomyopathy. His echo revealed an ejection fraction of 20 to 25%. The patient relates that he is basically homeless (sleeping at various friends and family's homes) and was unable to take his medication as directed until about the last week and a half. He tells me the last time he took his medication was around 6 PM yesterday - he's been taking them everyday for the last week and a half. He feels like they have helped him not get back to the level of SOB he was at in Aug. He describes significant orthopnea. He has had increasing swelling in his lower extremities but not as severe as August. He denies chest pain. Denies palpitations. Denies heaviness or tightness in his chest. He was concerned this morning because the shortness of breath got much more severe. He would like to have a CPAP and thinks this will help the majority of his symptoms. He has not had any follow-ups at all since his hospitalization secondary to problems with transportation and as stated his homelessness. He denies known family history of coronary artery disease. He is not a smoker. When he presents he is quite labored in his breathing. Tachycardic in the 120s but as he settles in the bed his heart rate drops to about 111. Quite hypertensive in the 190s over 120 range. No recent illnesses such as fevers, chills, productive cough. No URI symptoms. No GI symptoms. He is not COVID vaccinated nor is he fully vaccinated. States that he does not believe he is diabetic. All other review of systems reviewed and negative except as stated. Timing/Duration: 1 Week, Increasing Severity: Moderate Activities at Onset: Rest Modifying Factors: Worse With Lying Down Associated Symptoms: Edema Allergies and Home Medications Allergies Coded Allergies: No Known Drug Allergies (Unverified , 09/18/21) Patient Home Medication List Home Medication List Reviewed: Yes Carvedilol (Carvedilol) 3.125 Mg Tablet, 12.5 MG PO BID, (Reported) Entered as Reported by: CARLOTA KEYS on 01/15/221431 Last Action: Reviewed Furosemide (Furosemide) 40 Mg Tablet, 40 MG PO DAILY, (Reported) Entered as Reported by: CARLOTA KEYS on 01/15/221431 Last Action: Reviewed Hydralazine HCl (Hydralazine HCl) 25 Mg Tablet, 25 MG PO TID, (Reported) Entered as Reported by: CARLOTA KEYS on 01/15/221431 Last Action: Reviewed Isosorbide Mononitrate (Isosorbide Mononitrate ER) 60 Mg Tab, 60 MG PO DAILY, (Reported) Entered as Reported by: CARLOTA KEYS on 01/15/221431 Last Action: Reviewed Discontinued Medications Aspirin (Children's Aspirin) 81 Mg Tab.chew, 81 MG PO DAILY@0900 Discontinued Reason: No Longer Taking Prescribed by: JAH CANNON JR, MD on 09/28/211056 Last Action: Discontinued Carvedilol (Carvedilol) 3.125 Mg Tablet, 12.5 MG PO BID Discontinued Reason: No Longer Taking Prescribed by: JAH CANNON JR, MD on 09/28/211056 Last Action: Discontinued Furosemide (Furosemide) 40 Mg Tablet, 40 MG PO DAILY Discontinued Reason: No Longer Taking Prescribed by: JAH CANNON JR, MD on 09/28/211056 Last Action: Discontinued Hydralazine HCl (Hydralazine HCl) 25 Mg Tablet, 25 MG PO Q8HR Discontinued Reason: No Longer Taking Prescribed by: JAH CANNON JR, MD on 09/29/21 0831 Last Action: Discontinued Isosorbide Mononitrate (Isosorbide Mononitrate ER) 60 Mg Tab, 60 MG PO DAILY Discontinued Reason: No Longer Taking Prescribed by: JAH CANNON JR, MD on 09/28/211056 Last Action: Discontinued Review of Systems Review of Systems Constitutional: see HPI EENTM: no symptoms reported Respiratory: orthopnea, short of breath Cardiovascular: no symptoms reported Gastrointestinal: no symptoms reported Genitourinary: no symptoms reported Musculoskeletal: no symptoms reported Skin: no symptoms reported Psychiatric/Neurological: Anxiety All Other Systems Reviewed Negative Unless Noted: Yes Past [id number] Hx Past Medical History Cardiac: Yes Hypertension Genitourinary: Yes Renal Failure Family Medical History No Pertinent Family Hx Physical Exam Vital Signs Vital Signs - First Documented 01/15/22 04:05 Temp 36.9 Pulse 124 Resp 26 B/P (MAP) 195/127 (149) Pulse Ox 94 Capillary Refill : Height, Weight, BMI Height: '" Weight: lbs. oz. kg; 56.16 BMI Method: General Appearance: Anxious, Mild Distress HEENT: PERRL/EOMI Respiratory: Chest Non Tender, Rales, Respiratory Distress (mild - conversational dyspnea), Other (dyspneic and labored) Cardiovascular: Regular Rate, Rhythm, Tachycardia, Other (edema 2+ bilateral LE) Gastrointestinal: Soft, Other (obese) Extremity: Pedal Edema Neurologic/Psychiatric: Alert, Oriented x3, No Motor/Sensory Deficits, Normal Mood/Affect, Other (pleasant; agreeable; appreciative) Skin: Normal Color, Warm/Dry Progress/Results/Core Measures Results/Orders Lab Results Laboratory Tests Test 01/15/22 04:20 Range/Units White Blood Count 6.1 4.3-11.0 10^3/uL Red Blood Count 6.15 H 4.30-5.52 10^6/uL Hemoglobin 11.9 L 13.3-17.7 g/dL Hematocrit 41 40-54 % Mean Corpuscular Volume 66 L 80-99 fL Mean Corpuscular Hemoglobin 19 L 25-34 pg Mean Corpuscular Hemoglobin Concent 29 L 32-36 g/dL Red Cell Distribution Width 21.5 H 10.0-14.5 % Platelet Count 292 130-400 10^3/uL Mean Platelet Volume 9.0-12.2 fL Immature Granulocyte % (Auto) 1 % Neutrophils (%) (Auto) 64 42-75 % Lymphocytes (%) (Auto) 22 12-44 % Monocytes (%) (Auto) 10 0-12 % Eosinophils (%) (Auto) 3 0-10 % Basophils (%) (Auto) 1 0-10 % Neutrophils # (Auto) 3.9 1.8-7.8 10^3/uL Lymphocytes # (Auto) 1.3 1.0-4.0 10^3/uL Monocytes # (Auto) 0.6 0.0-1.0 10^3/uL Eosinophils # (Auto) 0.2 0.0-0.3 10^3/uL Basophils # (Auto) 0.0 0.0-0.1 10^3/uL Immature Granulocyte # (Auto) 0.0 0.0-0.1 10^3/uL Percent Immature Platelet Fraction 6.0 0.0-7.6 % Prothrombin Time 13.1 12.2-14.7 SEC INR Comment 1.0 0.8-1.4 Activated Partial Thromboplast Time 20 L 24-35 SEC Sodium Level 141 135-145 MMOL/L Potassium Level 4.0 3.6-5.0 MMOL/L Chloride Level 106 98-107 MMOL/L Carbon Dioxide Level 22 21-32 MMOL/L Anion Gap 13 5-14 MMOL/L Blood Urea Nitrogen 11 7-18 MG/DL Creatinine 2.00 H 0.60-1.30 MG/DL Estimat Glomerular Filtration Rate 43 BUN/Creatinine Ratio 6 Glucose Level 99 70-105 MG/DL Calcium Level 9.1 8.5-10.1 MG/DL Corrected Calcium 9.5 8.5-10.1 MG/DL Magnesium Level 1.9 1.6-2.4 MG/DL Total Bilirubin 0.8 0.1-1.0 MG/DL Aspartate Amino Transf (AST/SGOT) 19 5-34 U/L Alanine Aminotransferase (ALT/SGPT) 13 0-55 U/L Alkaline Phosphatase 93 40-136 U/L Myoglobin 94.3 H 10.0-92.0 NG/ML Troponin I < 0.028 <0.028 NG/ML B-Type Natriuretic Peptide 421.7 H <100.0 PG/ML Total Protein 7.1 6.4-8.2 GM/DL Albumin 3.5 3.2-4.5 GM/DL My Orders Orders - IVA PEREIRA MD Cbc With Automated Diff (01/15/22 04:18) Magnesium (01/15/22 04:18) Chest 1 View, Ap/Pa Only (01/15/22 04:18) Ekg Tracing (01/15/22 04:18) Comprehensive Metabolic Panel (01/15/22 04:18) Myoglobin Serum (01/15/22 04:18) Protime With Inr (01/15/22 04:18) Partial Thromboplastin Time (01/15/22 04:18) O2 (01/15/22 04:18) Monitor-Rhythm Ecg Trace Only (01/15/22 04:18) Lipid Panel (01/16/22 06:00) Ed Iv/Invasive Line Start (01/15/22 04:18) Bnp [place] (01/15/22 04:18) Troponin I [place] (01/15/22 04:18) Aspirin Chewable Tablet (Baby Aspirin Ch (01/15/22 04:18) Furosemide Injection (Lasix Injection) (01/15/22 04:30) Aspirin Chewable Tablet (Baby Aspirin Ch (01/15/22 04:30) Medications Given in ED Vital Signs/I&O 01/15/22 04:05 Temp 36.9 Pulse 124 Resp 26 B/P (MAP) 195/127 (149) Pulse Ox 94 Admisison Planning May Need Admission (Planning): 04:29 Progress Progress Note : Time: 05:14 Progress Note discussed with Dr Muñoz - just would like diuresis with Lasix at this point. And will continue previous home meds. Will discuss with Dr Gibson - admit observation to cardiac stepdown Initial ECG Impression Date: January 15, 2022 Initial ECG Impression Time: 04:28 Initial ECG Rate: 105 Initial ECG Rhythm: Normal Sinus Initial ECG Intervals [place] interval 172 QRS interval 90 QTc 405 Comment Diffuse low voltage, no ectopy is noted. Nonspecific ST-T wave aldair ening/change in the inferior leads no elevation is noted ST-T wave flattening is also noted in the precordial leads V1 through V4 poor R wave progression over the precordial leads Critical Care Note Critical Care Start Time: 04:15 Stop Time: 05:25 Total Time (minutes) 30 minutes critical care time in the evaluation and management of this patient with hypertensive urgency and fairly recent diagnosis of cardiomyopathy. Time includes initial evaluation and management, review of labs, EKG and chest x-ray, review of medical record, diuresis with Lasix, discussion with cardiology and admitting provider; constant monitoring of blood pressure and oxygenation. Departure Communication (Admissions) Time/Spoke to Consulting Phy: 05:[address] Muñoz - Impression Primary Impression: Hypertensive urgency Additional Impressions: Cardiomyopathy Qualified Codes: I42.9 - Cardiomyopathy, unspecified Chronic kidney disease Qualified Codes: N18.9 - Chronic kidney disease, unspecified Acute exacerbation of CHF (congestive heart failure) Qualified Codes: I50.23 - Acute on chronic systolic (congestive) heart failure Disposition: ADMITTED INPATIENT Condition: Critical Admissions Decision to Admit Reason: Admit from ER (General) Decision to Admit/Date: January 15, 2022 Time/Decision to Admit Time: 04:56 Departure-Patient Inst. Referrals: NO,LOCAL PHYSICIAN (PCP/Family) Primary Care Physician IVA PEREIRA MD January 15, 2022 04:23
[2022-01-15] MEDS ORDERED: ASPIRIN 81 MG CHEW (CHILDREN'S ASA) ONE (04:30)
[2022-01-15] MEDS ORDERED: FUROSEMIDE 40 MG/4 ML INJ (LASIX) IVP ONE (04:30)
[2022-01-15 04:34] LABS: BASOPHILS % (AUTO) 1 % (0-10); EOSINOPHILS # (AUTO) 0.2 10^3/uL (0.0-0.3); EOSINOPHILS % (AUTO) 3 % (0-10); HEMATOCRIT 41 % (40-54); HEMOGLOBIN 11.9 g/dL (13.3-17.7); LYMPHOCYTES # (AUTO) 1.3 10^3/uL (1.0-4.0); LYMPHOCYTES % (AUTO) 22 % (12-44); MEAN CORPUSCULAR HEMOGLOBIN 19 pg (25-34); MEAN CORPUSCULAR HGB CONC 29 g/dL (32-36); MEAN CORPUSCULAR VOLUME 66 fL (80-99); MONOCYTES # (AUTO) 0.6 10^3/uL (0.0-1.0); MONOCYTES % (AUTO) 10 % (0-12); NEUTROPHILS # (AUTO) 3.9 10^3/uL (1.8-7.8); NEUTROPHILS % (AUTO) 64 % (42-75); PLATELET COUNT 292 10^3/uL (130-400); WHITE BLOOD COUNT 6.1 10^3/uL (4.3-11.0)
[2022-01-15 04:43] LABS: ALBUMIN 3.5 GM/DL (3.2-4.5)
[2022-01-15 04:44] LABS: CALCIUM 9.1 MG/DL (8.5-10.1); PROTHROMBIN TIME PATIENT 13.1 SEC (12.2-14.7)
[2022-01-15 04:45] LABS: TOTAL PROTEIN 7.1 GM/DL (6.4-8.2)
[2022-01-15] MEDS ORDERED: niCARdipine IV 50 MG in NS (IVPB) 230 ML IV SCH (04:45)
[2022-01-15 04:47] LABS: BILIRUBIN,TOTAL 0.8 MG/DL (0.1-1.0)
[2022-01-15 04:52] LABS: MAGNESIUM 1.9 MG/DL (1.6-2.4)
--- NOTE | 2022-01-15 05:54 | Diagnostic Imaging Report ---
INDICATION: Chest pain. Comparison is made with prior examination of 09/20/2021. FINDINGS: There is cardiomegaly. The mediastinum is unremarkable. There is no pleural effusion, pneumothorax or pneumonia. IMPRESSION: Cardiomegaly. No acute cardiopulmonary abnormality.. Dictated by: Dictated on workstation # [id number]
[2022-01-15 09:06] LABS: AMPHETAMINE SCREEN, URINE NEGATIVE (NEGATIVE); BARBITURATE SCREEN URINE NEGATIVE (NEGATIVE); BENZODIAZEPINES SCREEN URINE NEGATIVE (NEGATIVE); CANNABINOID SCREEN, URINE NEGATIVE (NEGATIVE); COCAINE SCREEN URINE NEGATIVE (NEGATIVE); METHADONE STAT NEGATIVE (NEGATIVE); OPIATE SCREEN URINE NEGATIVE (NEGATIVE); OXYCODONE STAT NEGATIVE (NEGATIVE); PROPOXYPHENE STAT NEGATIVE (NEGATIVE); TRICYCLIC ANTIDEPRESSANTS SCRE NEGATIVE (NEGATIVE)
[2022-01-15] MEDS: ISOSORBIDE MONONITRATE 60 MG (IMDUR) TAB PO SCH (09:37)
[2022-01-15 10:17] LABS: BILIRUBIN,URINE NEGATIVE (NEGATIVE); CLARITY,URINE CLEAR; COLOR,URINE YELLOW; GLUCOSE, URINE (UA) NEGATIVE (NEGATIVE); KETONES,URINE NEGATIVE (NEGATIVE); LEUKOCYTE ESTERASE ,URINE NEGATIVE (NEGATIVE); NITRITE,URINE NEGATIVE (NEGATIVE); PH,URINE 7.5 (5-9); PROTEIN,URINE NEGATIVE (NEGATIVE)
[2022-01-15 10:18] LABS: BACTERIA,URINE NEGATIVE /HPF; SQUAMOUS EPITHELIAL CELL,UR RARE /HPF
--- NOTE | 2022-01-15 10:27 | Consultation-Cardiology ---
HPI-Cardiology Cardiology Consultation: Date of Consultation 01/15/22 Date of Admission 01/15/22 Attending Physician Stephanie,Local Physician Admitting Physician Admitting Physician: Margarita Gibson MD Attending Physician: Margarita Gibson MD Consulting Physician JAH CANNON JR, MD HPI: Time Seen by a Provider: 10:21 Chief Complaint: REASON FOR CONSULTATION: Cardiomyopathy and hypertensive urgency. I had the pleasure of seeing Quan on the cardiac stepdown unit at [facility] in [place], [place] today. He has a history of cardiomyopathy that was first diagnosed in August 2021. He was placed on the usual guideline directed medical therapy and diuresed at that time. We were somewhat limited on choice of medications due to acute kidney injury on top of chronic kidney disease. He ultimately improved and was discharged home. He was then lost to follow-up. About 1 month ago he could not afford to get his prescription refills and stopped his cardiac medication. A couple of weeks later he was able to get his refills and restarted the medication. When he stopped the medication he began to get abdominal bloating and increasing dyspnea on exertion and fatigue. He suspected this was related to stopping his medication. When he got back on the medication, the abdominal bloating seemed to improve but he was still having shortness of breath and fatigue. He became concerned and came to the hospital early this morning. He denies chest discomfort. He has been having some paroxysmal nocturnal dyspnea but he thinks this is because he has been afraid to fall asleep. He purchased a mouthguard at [facility] which he has been using at night and he thinks this helps with his breathing somewhat. He denies orthop ibrahima, palpitations, lightheadedness, or syncope. He has chronic peripheral edema which has been unchanged. Certain portions of this document may have been dictated utilizing voice recognition technology. Inherent to this technology, typographical and gra mmatical errors may exist. As much as I am diligent to identify and correct these mistakes, some errors may remain in the document. Review of Systems-Cardiology Review of Systems Other comments Review of 10 organ systems is as per the history of present illness, otherwise negative. All Other Systems Reviewed Negative Unless Noted: Yes MIF-Idvjkd-Ltgouk Hx Patient Social History Marrital Status: single Smoking Status: Former Smoker Have you traveled recently?: No Alcohol Use?: No Pt feels they are or have been: No Past Medical History PMH As described under Assessment. Family Medical History Family Medical History: The patient does not know of any family history of premature coronary artery disease in first-degree relatives. He believes diabetes runs in his family. Allergies and Home Medications Allergies Coded Allergies: No Known Drug Allergies (Unverified , 09/18/21) Patient Home Medication List Home Medication List Reviewed: Yes Aspirin (Children's Aspirin) 81 Mg Tab.chew, 81 MG PO DAILY@0900 Prescribed by: JAH CANNON JR, MD on 09/28/21 1057 Carvedilol (Carvedilol) 3.125 Mg Tablet, 12.5 MG PO BID Prescribed by: JAH CANNON JR, MD on 09/28/21 1057 Furosemide (Furosemide) 40 Mg Tablet, 40 MG PO DAILY Prescribed by: JAH CANNON JR, MD on 09/28/21 1057 Hydralazine HCl (Hydralazine HCl) 25 Mg Tablet, 25 MG PO Q8HR Prescribed by: JAH CANNON JR, MD on 09/29/21 0831 Isosorbide Mononitrate (Isosorbide Mononitrate ER) 60 Mg Tab, 60 MG PO DAILY Prescribed by: JAH CANNON JR, MD on 09/28/21 1057 Exam Vital Signs Vital Signs Date Time Temp Pulse Resp B/P (MAP) Pulse Ox O2 Delivery O2 Flow Rate FiO2 01/15/22 12:00 90 156/107 (123) 100 01/15/22 09:00 29 01/15/22 09:00 Room Air 01/15/22 04:05 36.9 Physical Exam General: Alert. No acute distress. Well nourished and appears stated age. He is morbidly obese. Eye: Extraocular movements are intact. Conjunctivae are clear. There are no xanthelasma. HENT: Normocephalic. Atraumatic. Carotid pulsations 2/2 without bruits. Neck: Jugular venous pressure does not appear elevated. No thyromegaly appreciated. Respiratory: Lungs are clear to auscultation but decreased at the bases bilaterally. Respirations are non-labored. Breath sounds are equal. Symmetrical chest wall expansion. Cardiovascular: Normal rate. Regular rhythm. Distant S1/S2. No murmur. No gallop. Point of maximal impulse is not appear displaced. Good pulses equal in all extremities. 1+ bilateral pretibial edema. Gastrointestinal: Soft. Normal bowel sounds. Skin: Skin turgor is normal. There is no pallor. Musculoskeletal: No kyphosis or scoliosis appreciated. Neurologic: Alert and oriented to person, place, time. Cranial nerves 3-12 appear grossly intact. The patient has good motor tone strength in the upper and lower extremities bilaterally. Psychiatric: Cooperative. Appropriate mood & affect. Labs Laboratory Tests Test 01/15/22 04:20 01/15/22 08:40 Range/Units White Blood Count 6.1 4.3-11.0 10^3/uL Red Blood Count 6.15 H 4.30-5.52 10^6/uL Hemoglobin 11.9 L 13.3-17.7 g/dL Hematocrit 41 40-54 % Mean Corpuscular Volume 66 L 80-99 fL Mean Corpuscular Hemoglobin 19 L 25-34 pg Mean Corpuscular Hemoglobin Concent 29 L 32-36 g/dL Red Cell Distribution Width 21.5 H 10.0-14.5 % Platelet Count 292 130-400 10^3/uL Mean Platelet Volume 9.0-12.2 fL Immature Granulocyte % (Auto) 1 % Neutrophils (%) (Auto) 64 42-75 % Lymphocytes (%) (Auto) 22 12-44 % Monocytes (%) (Auto) 10 0-12 % Eosinophils (%) (Auto) 3 0-10 % Basophils (%) (Auto) 1 0-10 % Neutrophils # (Auto) 3.9 1.8-7.8 10^3/uL Lymphocytes # (Auto) 1.3 1.0-4.0 10^3/uL Monocytes # (Auto) 0.6 0.0-1.0 10^3/uL Eosinophils # (Auto) 0.2 0.0-0.3 10^3/uL Basophils # (Auto) 0.0 0.0-0.1 10^3/uL Immature Granulocyte # (Auto) 0.0 0.0-0.1 10^3/uL Percent Immature Platelet Fraction 6.0 0.0-7.6 % Prothrombin Time 13.1 12.2-14.7 SEC INR Comment 1.0 0.8-1.4 Activated Partial Thromboplast Time 20 L 24-35 SEC Sodium Level 141 135-145 MMOL/L Potassium Level 4.0 3.6-5.0 MMOL/L Chloride Level 106 98-107 MMOL/L Carbon Dioxide Level 22 21-32 MMOL/L Anion Gap 13 5-14 MMOL/L Blood Urea Nitrogen 11 7-18 MG/DL Creatinine 2.00 H 0.60-1.30 MG/DL Estimat Glomerular Filtration Rate 43 BUN/Creatinine Ratio 6 Glucose Level 99 70-105 MG/DL Calcium Level 9.1 8.5-10.1 MG/DL Corrected Calcium 9.5 8.5-10.1 MG/DL Magnesium Level 1.9 1.6-2.4 MG/DL Total Bilirubin 0.8 0.1-1.0 MG/DL Aspartate Amino Transf (AST/SGOT) 19 5-34 U/L Alanine Aminotransferase (ALT/SGPT) 13 0-55 U/L Alkaline Phosphatase 93 40-136 U/L Myoglobin 94.3 H 10.0-92.0 NG/ML Troponin I < 0.028 <0.028 NG/ML B-Type Natriuretic Peptide 421.7 H <100.0 PG/ML Total Protein 7.1 6.4-8.2 GM/DL Albumin 3.5 3.2-4.5 GM/DL Urine Color YELLOW Urine Clarity CLEAR Urine pH 7.5 5-9 Urine Specific Davidson 1.015 L 1.016-1.022 Urine Protein NEGATIVE NEGATIVE Urine Glucose (UA) NEGATIVE NEGATIVE Urine Ketones NEGATIVE NEGATIVE Urine Nitrite NEGATIVE NEGATIVE Urine Bilirubin NEGATIVE NEGATIVE Urine Urobilinogen 0.2 < = 1.0 MG/DL Urine Leukocyte Esterase NEGATIVE NEGATIVE Urine RBC (Auto) NEGATIVE NEGATIVE Urine RBC NONE /HPF Urine WBC NONE /HPF Urine Squamous Epithelial Cells RARE /HPF Urine Crystals NONE /LPF Urine Bacteria NEGATIVE /HPF Urine Casts NONE /LPF Urine Mucus NEGATIVE /LPF Urine Culture Indicated NO Urine Opiates Screen NEGATIVE NEGATIVE Urine Oxycodone Screen NEGATIVE NEGATIVE Urine Methadone Screen NEGATIVE NEGATIVE Urine Propoxyphene Screen NEGATIVE NEGATIVE Urine Barbiturates Screen NEGATIVE NEGATIVE Ur Tricyclic Antidepressants Screen NEGATIVE NEGATIVE Urine Phencyclidine Screen NEGATIVE NEGATIVE Urine Amphetamines Screen NEGATIVE NEGATIVE Urine Methamphetamines Screen NEGATIVE NEGATIVE Urine Benzodiazepines Screen NEGATIVE NEGATIVE Urine Cocaine Screen NEGATIVE NEGATIVE Urine Cannabinoids Screen NEGATIVE NEGATIVE Radiology ECHOCARDIOGRAM (01/15/2022): 1. This is a technically difficult study due to poor image quality secondary to patient's body habitus. Intravenous contrast was administered to enhance image quality. 2. Left ventricle: The cavity size is normal. There is moderate concentric hypertrophy. Systolic function is mildly to moderately reduced. The estimated ejection fraction is 40-45%. There is global hypokinesis with minor regional variability. The left ventricular diastolic function is indeterminate. 3. Right atrium: The atrium is mildly dilated. 4. Pulmonary arteries: The estimated pulmonary artery systolic pressure is 55 mmHg assuming a right atrial pressure of 15 mmHg. 5. Compared to the previous study from 09/19/2021, the ejection fraction appears improved. ECG Impression ECG Comment Electrocardiogram from the emergency room earlier this morning shows sinus tachycardia at 105 bpm with left atrial abnormality, low voltage in the precordial leads and poor R wave progression. Diagnosis/Problems Diagnosis/Problems (1) Acute on chronic HFrEF (heart failure with reduced ejection fraction) Assessment & Plan: His chest x-ray was clear but his BNP is slightly elevated and he has symptoms consistent with decompensated heart failure. This was probably brought on by noncompliance with his medication. I recommend we resume his guideline directed medical therapy. He is not on NRORIS inhibitor, ARB or aldosterone antagonist due to his chronic kidney disease. I expressed to him the importance of medication compliance and following up with me in the office after discharge. I would recommend we watch him overnight and if he has better tomorrow, he may be ready for discharge at that time. (2) Hypertensive urgency Status: Acute Assessment & Plan: As with the heart failure, I suspect this was due to medi cation noncompliance. (3) Cardiomyopathy Status: Acute Assessment & Plan: His ejection fraction actually appears to be improving. (4) Primary hypertension Status: Acute Assessment & Plan: As above. (5) Acute kidney injury superimposed on chronic kidney disease Status: Acute Assessment & Plan: Baseline renal function is unknown. We will watch this closely while he is in the hospital. (6) Morbid obesity Status: Chronic Assessment & Plan: He needs to work on weight loss. Problem Qualifiers (1) Cardiomyopathy: Cardiomyopathy type: unspecified Qualified Codes: I42.9 - Cardiomyopathy, unspecified JAH CANNON JR, MD January 15, 2022 10:26
[2022-01-15] MEDS ORDERED: FURO40TA4 PO (14:32)
[2022-01-15] MEDS ORDERED: ISOS60TA63 PO (14:32)
[2022-01-15] MEDS ORDERED: CARV3.122 PO (14:32)
[2022-01-15] MEDS ORDERED: HYDR-3923 PO (14:32)
[2022-01-15] MEDS: hydrALAZINE (APRESOLINE) 25 MG TAB PO SCH ×2 (14:50→21:16)
[2022-01-15] MEDS ORDERED: hydrALAZINE (APESOLINE) 20 MG/ML VIAL IV PRN (17:00)
[2022-01-15] MEDS: FUROSEMIDE 40 MG/4 ML INJ (LASIX) IVP SCH (17:29)
--- NOTE | 2022-01-15 19:04 | History & Physical-Hospitalist ---
History of Present Illness HPI/Chief Complaint Quan Fox is a 36 year old male with PMH HFrEF, CKD, HTN, morbid obesity, who presented with shortness of breath. This has been worsening over the past couple weeks. He has not been compliant with his medications. He started having abdominal swelling. He then started taking his meds but it did not help. He was hospitalized earlier this year with heart failure and was diuresed. He was supposed to establish with a primary care physician but he was unable to follow up. He has been living at [facility] and he does not have a mode of transportation. Source: patient Exam Limitations: no limitations Date Seen 01/15/22 Time Seen by a Provider: 09:55 Attending Physician No,Local Physician PCP Admitting Physician: Margarita Gibson MD Attending Physician: Margarita Gibson MD Referring Physician Date of Admission January 15, 2022 at 12:57 Home Medications & Allergies Home Medications Reviewed patient Home Medication Reconciliation performed by pharmacy medication reconciliations lead injection mold technician and/or nursing. Patients Allergies have been reviewed. Allergies Allergies Coded Allergies No Known Drug Allergies (Unverified09/18/21) Past Ehfjczu-Ukjyhn-Dhstdp Hx Patient Social History Marrital Status: single Tobacco Use?: No Smoking Status: Former Smoker Use of E-Cig and/or Vaping dev: No Substance use?: No Alcohol Use?: No Pt feels they are or have been: No Immunizations Up To Date First/Initial COVID19 Vaccinat: 2020 Second COVID19 Vaccination Marc: 2020 Tetanus Booster (TDap): Unknown Current Status Advance Directives: No Communicates: Verbally Primary Language: Thai Preferred Spoken Language: Thai Is interpretation needed?: No Past Medical History Hypertension Renal Failure Family Medical History No Pertinent Family Hx Review of Systems Constitutional: weakness EENTM: no symptoms reported Respiratory: dyspnea on exertion, orthopnea, short of breath Cardiovascular: no symptoms reported Gastrointestinal: no symptoms reported Genitourinary: no symptoms reported Musculoskeletal: no symptoms reported Skin: no symptoms reported Psychiatric/Neurological: No Symptoms Reported Physical Exam Physical Exam Vital Signs Vital Signs - First Documented 01/15/22 01/15/22 04:05 08:17 Temp 36.9 Pulse 124 Resp 26 B/P (MAP) 195/127 (149) Pulse Ox 94 O2 Delivery Room Air Capillary Refill : Less Than 3 Seconds Height, Weight, BMI Height: '" Weight: lbs. oz. kg; 44.53 BMI Method: General Appearance: No Apparent Distress, Obese HEENT: PERRL/EOMI, Pharynx Normal Neck: Normal Inspection, Supple Respiratory: No Respiratory Distress, Decreased Breath Sounds Cardiovascular: Regular Rate, Rhythm, No Murmur Gastrointestinal: Normal Bowel Sounds, Soft, Other (abdominal wall edema) Extremity: Non Tender; No Inflammation; Swelling Neurologic/Psychiatric: Alert, Oriented x3, No Motor/Sensory Deficits Skin: Normal Color, Warm/Dry Results Results/Procedures Labs Laboratory Tests 01/15/22 04:20 Patient resulted labs reviewed. Imaging: Reviewed Imaging Report Assessment/Plan Admission Diagnosis Hypertensive urgency Admission Status: Inpatient Order (span 2 midnights) Reason for Inpatient Admission: Heart failure requiring IV diuresis Assessment and Plan HTN urgency Acute on chronic heart failure with reduced ejection fraction Chronic kidney disease stage 3b Morbid obesity Medication nonadherence Cardiology consulted Repeat echo with improved EF, 40-45% IV Lasix Restarted home antihypertensives IV Hyrdalazine as needed Social work consulted DVT prophylaxis: Lovenox Diagnosis/Problems Diagnosis/Problems (1) Acute on chronic HFrEF (heart failure with reduced ejection fraction) (2) Hypertensive urgency Status: Acute (3) Chronic kidney disease Status: Acute Qualifiers: Chronic kidney disease stage: unspecified stage Qualified Codes: N18.9 - Chronic kidney disease, unspecified (4) Morbid obesity Status: Chronic (5) Medication nonadherence due to psychosocial problem Status: Acute LENNY SMITH MD January 15, 2022 19:04
[2022-01-15] MEDS: ENOXAPARIN 40 MG/0.4 ML (LOVENOX) SYR SQ SCH (22:14)
[2022-01-16] VITALS (10 sets, daily range): BP systolic 132–165; BP diastolic 83–114
[2022-01-16] MEDS: hydrALAZINE (APRESOLINE) 25 MG TAB PO SCH ×3 (06:03→21:26)
[2022-01-16] MEDS: FUROSEMIDE 40 MG/4 ML INJ (LASIX) IVP SCH ×2 (06:04→17:06)
[2022-01-16 06:18] LABS: HEMOGLOBIN 10.3 g/dL (13.3-17.7)
[2022-01-16 06:20] LABS: BASOPHILS % (AUTO) 0 % (0-10); EOSINOPHILS # (AUTO) 0.2 10^3/uL (0.0-0.3); EOSINOPHILS % (AUTO) 4 % (0-10); HEMATOCRIT 34 % (40-54); LYMPHOCYTES # (AUTO) 1.4 10^3/uL (1.0-4.0); LYMPHOCYTES % (AUTO) 28 % (12-44); MEAN CORPUSCULAR HEMOGLOBIN 20 pg (25-34); MEAN CORPUSCULAR HGB CONC 30 g/dL (32-36); MEAN CORPUSCULAR VOLUME 66 fL (80-99); MEAN PLATELET VOLUME 10.2 fL (9.0-12.2); MONOCYTES # (AUTO) 0.5 10^3/uL (0.0-1.0); MONOCYTES % (AUTO) 10 % (0-12); NEUTROPHILS # (AUTO) 2.8 10^3/uL (1.8-7.8); NEUTROPHILS % (AUTO) 57 % (42-75); PLATELET COUNT 350 10^3/uL (130-400); WHITE BLOOD COUNT 4.9 10^3/uL (4.3-11.0)
[2022-01-16 06:36] LABS: POTASSIUM 3.7 MMOL/L (3.6-5.0)
[2022-01-16 06:37] LABS: CALCIUM 8.4 MG/DL (8.5-10.1)
[2022-01-16 06:41] LABS: CREATININE SERUM 1.9 MG/DL (0.60-1.30); PHOSPHORUS 3.6 MG/DL (2.3-4.7)
[2022-01-16 06:44] LABS: MAGNESIUM 1.9 MG/DL (1.6-2.4)
--- NOTE | 2022-01-16 07:30 | Diagnostic Imaging Report ---
INDICATION: Chest pain. Comparison with 01/15/2022. FINDINGS: There continues to be mild cardiomegaly. The lungs are well-aerated and clear. No pneumothorax or pleural effusion. No bony abnormalities. IMPRESSION: Cardiomegaly with no acute changes noted. Dictated by: Dictated on workstation # [id number]
--- NOTE | 2022-01-16 08:24 | Cardiology Progress Note ---
Progress Note-Cardiology Events since last exam Date Seen by Provider: January 16, 2022 Time Seen by Provider: 08:23 Events since last exam I am following him due to heart failure. His breathing and abdominal distention are improving. He denies chest discomfort, palpitations, or syncope. His peripheral edema is also improving. Certain portions of this document may have been dictated utilizing voice recognition technology. Inherent to this technology, typographical and grammatical errors may exist. As much as I am diligent to identify and correct these mistakes, some errors may remain in the document. Vitals Last set of Vitals Signs Vital Signs 01/16/22 01/16/22 07:07 07:54 Temp 36.8 Pulse 86 Resp 30 B/P (MAP) 157/92 (113) Pulse Ox 99 O2 Delivery Room Air O2 Flow Rate 25.00 Labs Labs Laboratory Tests 01/16/22 05:26 Exam Vital Signs Vital Signs Date Time Temp Pulse Resp B/P (MAP) Pulse Ox O2 Delivery O2 Flow Rate FiO2 01/16/22 07:54 36.8 86 30 157/92 (113) 99 Room Air 01/16/22 07:07 25.00 Physical Exam General: Alert. No acute distress. He is morbidly obese. Eye: No xanthelasma. HENT: Normocephalic. Neck: Jugular venous pressure does not appear elevated. Respiratory: Lungs are clear to auscultation but with decreased breath sounds at the bases bilaterally. Respirations are non-labored. Breath sounds are equal. Symmetrical chest wall expansion. Cardiovascular: Normal rate. Regular rhythm. No murmur. No gallop. 2+ bilateral pretibial edema. Gastrointestinal: Soft. Normal bowel sounds. Skin: Warm. Dry. Neurologic: Alert and oriented to person, place, time. Cranial nerves 3-11 grossly intact. Psychiatric: Cooperative. Appropriate mood & affect. Labs Laboratory Tests Test 01/16/22 05:26 Range/Units White Blood Count 4.9 4.3-11.0 10^3/uL Red Blood Count 5.19 4.30-5.52 10^6/uL Hemoglobin 10.3 L 13.3-17.7 g/dL Hematocrit 34 L 40-54 % Mean Corpuscular Volume 66 L 80-99 fL Mean Corpuscular Hemoglobin 20 L 25-34 pg Mean Corpuscular Hemoglobin Concent 30 L 32-36 g/dL Red Cell Distribution Width 20.5 H 10.0-14.5 % Platelet Count 350 130-400 10^3/uL Mean Platelet Volume 10.2 9.0-12.2 fL Immature Granulocyte % (Auto) 1 % Neutrophils (%) (Auto) 57 42-75 % Lymphocytes (%) (Auto) 28 12-44 % Monocytes (%) (Auto) 10 0-12 % Eosinophils (%) (Auto) 4 0-10 % Basophils (%) (Auto) 0 0-10 % Neutrophils # (Auto) 2.8 1.8-7.8 10^3/uL Lymphocytes # (Auto) 1.4 1.0-4.0 10^3/uL Monocytes # (Auto) 0.5 0.0-1.0 10^3/uL Eosinophils # (Auto) 0.2 0.0-0.3 10^3/uL Basophils # (Auto) 0.0 0.0-0.1 10^3/uL Immature Granulocyte # (Auto) 0.0 0.0-0.1 10^3/uL Percent Immature Platelet Fraction 2.3 0.0-7.6 % Sodium Level 139 135-145 MMOL/L Potassium Level 3.7 3.6-5.0 MMOL/L Chloride Level 103 98-107 MMOL/L Carbon Dioxide Level 23 21-32 MMOL/L Anion Gap 13 5-14 MMOL/L Blood Urea Nitrogen 12 7-18 MG/DL Creatinine 1.90 H 0.60-1.30 MG/DL Estimat Glomerular Filtration Rate 46 BUN/Creatinine Ratio 6 Glucose Level 81 70-105 MG/DL Calcium Level 8.4 L 8.5-10.1 MG/DL Phosphorus Level 3.6 2.3-4.7 MG/DL Magnesium Level 1.9 1.6-2.4 MG/DL Triglycerides Level 77 <150 MG/DL Cholesterol Level 127 < 200 MG/DL LDL Cholesterol Direct 83 1-129 MG/DL VLDL Cholesterol 15 5-40 MG/DL HDL Cholesterol 32 L 40-60 MG/DL Diagnosis/Problems Diagnosis/Problems (1) Acute on chronic HFrEF (heart failure with reduced ejection fraction) Assessment & Plan: His chest x-ray was clear but his BNP was slightly elevated and he has symptoms consistent with decompensated heart failure. This was probably brought on by noncompliance with his medication. I recommend we His guideline directed medical therapy. He is not on NORRIS inhibitor, ARB or aldosterone antagonist due to his chronic kidney disease. I expressed to him the importance of medication compliance and following up with me in the office after discharge. I would suggest we watch him until we know where his renal function will stabilize and then we can change his intravenous furosemide over t o oral. (2) Hypertensive urgency Status: Acute Assessment & Plan: As with the heart failure, I suspect this was due to medication noncompliance. His blood pressures have improved with resumption of his regular outpatient medication. (3) Cardiomyopathy Status: Acute Assessment & Plan: His ejection fraction has improved since his previous admission. Now his ejection fraction is above the cutoff for recommending a LifeVest. At some point, we will need to consider an ischemic evaluation either with a nuclear stress test or directly to cardiac catheterization. This does not need to be done while he is in the hospital. (4) Primary hypertension Status: Acute Assessment & Plan: As above. (5) Acute kidney injury superimposed on chronic kidney disease Status: Acute Assessment & Plan: Baseline renal function is unknown. We will watch this closely while he is in the hospital. (6) Morbid obesity Status: Chronic Assessment & Plan: He needs to work on weight loss. Problem Qualifiers (1) Cardiomyopathy: Cardiomyopathy type: unspecified Qualified Codes: I42.9 - Cardiomyopathy, unspecified JAH CANNON JR, MD January 16, 2022 08:24
[2022-01-16] MEDS: ISOSORBIDE MONONITRATE 60 MG (IMDUR) TAB PO SCH (08:43)
[2022-01-16] MEDS: ENOXAPARIN 40 MG/0.4 ML (LOVENOX) SYR SQ SCH ×2 (08:43→21:26)
[2022-01-16] MEDS: ASPIRIN E.C. 81 MG (ECOTRIN) TAB PO SCH (08:43)
--- NOTE | 2022-01-16 17:28 | Progress Note - Hospitalist ---
Subjective HPI/CC On Admission Date Seen by Provider: January 16, 2022 Time Seen by Provider: 10:45 Quan Fox is a 36 year old male with PMH HFrEF, CKD, HTN, morbid obesity, who presented with shortness of breath. This has been worsening over the past couple weeks. He has not been compliant with his medications. He started having abdominal swelling. He then started taking his meds but it did not help. He was hospitalized earlier this year with heart failure and was diuresed. He was supposed to establish with a primary care physician but he was unable to follow up. He has been living at [facility] and he does not have a mode of transportation. Subjective/Events-last exam He is feeling better today. He is not short of breath. His abdominal swelling is improved. He denies pain. Objective Exam Vital Signs Vital Signs Date Time Temp Pulse Resp B/P (MAP) Pulse Ox O2 Delivery O2 Flow Rate FiO2 01/16/22 16:00 36.8 81 25 135/83 (100) 97 Room Air 01/16/22 14:00 25.00 Capillary Refill : Less Than 3 Seconds General Appearance: No Apparent Distress, Chronically ill, Obese Respiratory: No Respiratory Distress, Decreased Breath Sounds Cardiovascular: Regular Rate, Rhythm, No Murmur Gastrointestinal: Normal Bowel Sounds, Soft, Other (abdominal wall swelling) Extremity: No Inflammation; Pedal Edema, Swelling, Other (chronic venous stasis dermatitis) Neurologic/Psychiatric: Alert, Oriented x3, Normal Mood/Affect Results/Procedures Lab Laboratory Tests 01/16/22 05:26 Patient resulted labs reviewed. Imaging: Reviewed Imaging Report Assessment/Plan Assessment and Plan Assess & Plan/Chief Complaint HTN urgency Acute on chronic heart failure with reduced ejection fraction Chronic kidney disease stage 3b Morbid obesity Medication nonadherence Cardiology following Repeat echo with improved EF, 40-45% Continue IV Lasix Continue home antihypertensives IV Hyrdalazine as needed Social work following DVT prophylaxis: Lovenox Diagnosis/Problems Diagnosis/Problems (1) Acute on chronic HFrEF (heart failure with reduced ejection fraction) Status: Acute (2) Hypertensive urgency Status: Acute (3) Chronic kidney disease Status: Acute Qualifiers: Chronic kidney disease stage: unspecified stage Qualified Codes: N18.9 - Chronic kidney disease, unspecified (4) Morbid obesity Status: Chronic (5) Medication nonadherence due to psychosocial problem Status: Acute LENNY SMITH MD January 16, 2022 17:28
[2022-01-16] MEDS ORDERED: ONDANSETRON 4 MG (ZOFRAN) ORAL DISSOLVE TAB PO PRN (17:30)
[2022-01-16] MEDS ORDERED: polyethylene glycoL POWDER 17 GM (MIRALAX) PACK PO PRN (17:30)
[2022-01-16] MEDS ORDERED: diphenhydrAMINE 25 MG TAB (BENADRYL) PO PRN (17:30)
[2022-01-16] MEDS ORDERED: ONDANSETRON 4 MG/2 ML (SDV) Z0FRAN IV PRN (17:30)
[2022-01-16] MEDS ORDERED: ACETAMINOPHEN 325 MG TABLET PO PRN (17:30)
[2022-01-16] MEDS ORDERED: MELATONIN 3 MG TABLET PO PRN (17:30)
[2022-01-16] MEDS ORDERED: ANTACID SUSP 30 ML UDC (MYLANTA) PO PRN (17:30)
[2022-01-17 03:47] VITALS: BP 143/86
[2022-01-17] MEDS: hydrALAZINE (APRESOLINE) 25 MG TAB PO SCH ×2 (06:05→14:03)
[2022-01-17] MEDS: FUROSEMIDE 40 MG/4 ML INJ (LASIX) IVP SCH ×2 (06:05→17:13)
[2022-01-17 06:19] LABS: POTASSIUM 3.9 MMOL/L (3.6-5.0)
[2022-01-17 06:20] LABS: CALCIUM 8.3 MG/DL (8.5-10.1)
[2022-01-17 06:24] LABS: CREATININE SERUM 1.92 MG/DL (0.60-1.30)
[2022-01-17 07:51] VITALS: BP 130/89
[2022-01-17] MEDS: ISOSORBIDE MONONITRATE 60 MG (IMDUR) TAB PO SCH (08:50)
[2022-01-17] MEDS: ASPIRIN E.C. 81 MG (ECOTRIN) TAB PO SCH (08:50)
[2022-01-17] MEDS: ENOXAPARIN 40 MG/0.4 ML (LOVENOX) SYR SQ SCH (08:51)
--- NOTE | 2022-01-17 08:52 | Progress Note - Hospitalist ---
Subjective HPI/CC On Admission Date Seen by Provider: January 17, 2022 Time Seen by Provider: 09:00 Quan Fox is a 36 year old male with PMH HFrEF, CKD, HTN, morbid obesity, who presented with shortness of breath. This has been worsening over the past couple weeks. He has not been compliant with his medications. He started having abdominal swelling. He then started taking his meds but it did not help. He was hospitalized earlier this year with heart failure and was diuresed. He was supposed to establish with a primary care physician but he was unable to follow up. He has been living at [facility] and he does not have a mode of transportation. Objective Exam Vital Signs Vital Signs Date Time Temp Pulse Resp B/P (MAP) Pulse Ox O2 Delivery O2 Flow Rate FiO2 01/17/22 15:40 36.2 80 13 121/81 (94) 99 Room Air 01/17/22 07:51 25.00 Capillary Refill : Less Than 3 Seconds Results/Procedures Lab Laboratory Tests 01/17/22 05:33 Patient resulted labs reviewed. Imaging: Reviewed Imaging Report MILA WALLACE DO January 17, 2022 08:52
[2022-01-17 11:40] VITALS: BP 118/74
[2022-01-17 12:00] VITALS: BP 118/74
[2022-01-17 15:40] VITALS: BP 121/81
--- NOTE | 2022-01-17 16:16 | Cardiology Progress Note ---
Progress Note-Cardiology Events since last exam Date Seen by Provider: January 17, 2022 Time Seen by Provider: 16:14 Events since last exam I am following him for heart failure. His breathing and peripheral edema are better. He denies chest pain, palpitations, or syncope. He wants to go home. He will stay in [place] for at least the next week so he can come to his follow up appointments. Certain portions of this document may have been dictated utilizing voice recognition technology. Inherent to this technology, typographical and grammatical errors may exist. As much as I am diligent to identify and correct these mistakes, some errors may remain in the document. Vitals Last set of Vitals Signs Vital Signs 01/17/22 15:40 Temp 36.2 Pulse 80 Resp 13 B/P (MAP) 121/81 (94) Pulse Ox 99 O2 Delivery Room Air Labs Labs Laboratory Tests 01/17/22 05:33 Exam Vital Signs Vital Signs Date Time Temp Pulse Resp B/P (MAP) Pulse Ox O2 Delivery O2 Flow Rate FiO2 01/17/22 15:40 36.2 80 13 121/81 (94) 99 Room Air 01/17/22 07:51 25.00 Physical Exam General: Alert. No acute distress. He is morbidly obese. Eye: No xanthelasma. HENT: Normocephalic. Neck: Jugular venous pressure does not appear elevated. Respiratory: Lungs are clear to auscultation. Respirations are non-labored. Breath sounds are equal. Symmetrical chest wall expansion. Cardiovascular: Normal rate. Regular rhythm. No murmur. No gallop. No edema. Gastrointestinal: Soft. Normal bowel sounds. Skin: Warm. Dry. Neurologic: Alert and oriented to person, place, time. Cranial nerves 3-11 grossly intact. Psychiatric: Cooperative. Appropriate mood & affect. Labs Laboratory Tests Test 01/17/22 05:33 Range/Units Sodium Level 138 135-145 MMOL/L Potassium Level 3.9 3.6-5.0 MMOL/L Chloride Level 102 98-107 MMOL/L Carbon Dioxide Level 25 21-32 MMOL/L Anion Gap 11 5-14 MMOL/L Blood Urea Nitrogen 14 7-18 MG/DL Creatinine 1.92 H 0.60-1.30 MG/DL Estimat Glomerular Filtration Rate 45 BUN/Creatinine Ratio 7 Glucose Level 97 70-105 MG/DL Calcium Level 8.3 L 8.5-10.1 MG/DL Diagnosis/Problems Diagnosis/Problems (1) Acute on chronic HFrEF (heart failure with reduced ejection fraction) Status: Acute Assessment & Plan: His chest x-ray at the time of admission was clear but his BNP was slightly elevated and he has symptoms consistent with decompensated heart failure. This was probably brought on by noncompliance with his medication. His symptoms now seem to be improved and his creatinine has stabilized following a couple of days of intravenous furosemide. He is not on NORRIS inhibitor, ARB or aldosterone antagonist due to his chronic kidney disease. I expressed to him the importance of medication compliance and following up with me in the office after discharge. From a cardiac standpoint, he can be discharged home. (2) Hypertensive urgency Status: Acute Assessment & Plan: As with the heart failure, I suspect this was due to medication noncompliance. His blood pressures have improved with resumption of his regular outpatient medication. (3) Cardiomyopathy Status: Acute Assessment & Plan: His ejection fraction has improved since his previous admission. Now his ejection fraction is above the cutoff for recommending a LifeVest. At some point, we will need to consider an ischemic evaluation either with a nuclear stress test or directly to cardiac catheterization. This does not need to be done while he is in the hospital. He should continue the present guideline directed medical therapy. (4) Primary hypertension Status: Acute Assessment & Plan: As above. (5) Acute kidney injury superimposed on chronic kidney disease Status: Acute Assessment & Plan: Baseline renal function is unknown. His creatinine has stabilized at 1.9. This is most likely his baseline. (6) Morbid obesity Status: Chronic Assessment & Plan: He needs to work on weight loss. Problem Qualifiers (1) Cardiomyopathy: Cardiomyopathy type: unspecified Qualified Codes: I42.9 - Cardiomyopathy, unspecified JAH CANNON JR, MD January 17, 2022 16:16
[2022-01-17] MEDS ORDERED: ISOS60TA63 PO (16:41)
[2022-01-17] MEDS ORDERED: CARV12.53 PO (16:41)
[2022-01-17] MEDS ORDERED: FURO40TA4 PO (16:41)
[2022-01-17] MEDS ORDERED: HYDR-3923 PO (16:41)
[2022-01-17] MEDS ORDERED: ASPI-1238 PO (16:41)
--- NOTE | 2022-01-17 16:41 | Discharge Summary ---
Discharge Summary Hospital Course Was the Problem List Reviewed?: Yes Problems/Dx: (1) Acute on chronic HFrEF (heart failure with reduced ejection fraction) Status: Acute (2) Hypertensive urgency Status: Acute (3) Cardiomyopathy Status: Acute Qualifiers: Qualified Codes: I42.9 - Cardiomyopathy, unspecified (4) Primary hypertension Status: Acute (5) Acute kidney injury superimposed on chronic kidney disease Status: Acute (6) Morbid obesity Status: Chronic Hospital Course Date of Admission: January 15, 2022 at 12:57 Admission Diagnosis : Family Physician/Provider: No,Local Physician Date of Discharge: 01/17/22 Discharge Diagnosis: Volume overload, cardiomyopathy, congestive heart failure, chronic kidney disease Hospital Course: Pt is doing a lot better Continues to have diuresis Creatinine was 1.92 Has a [facility] follow up arranged He goes to [facility] if he can go home Pt had an uneventful 3 day hospital course after he was admitted for hypertensive urgency, cardiomyopathy, and CHF. He did require aggressive diuresis which was successful with decreased edema and decreased SOB. Dr. Reyes was maintained in consultation and had close monitoring throughout the hospital course. Labs and Pending Lab Test: Laboratory Tests 01/17/22 05:33: Sodium Level 138, Potassium Level 3.9, Chloride Level 102, Carbon Dioxide Level 25, Anion Gap 11, Blood Urea Nitrogen 14, Creatinine 1.92H, Estimat Glomerular Filtration Rate 45, BUN/Creatinine Ratio 7, Glucose Level 97, Calcium Level 8.3L Home Meds Active Aspirin EC (Aspirin) 81 Mg Tablet. 81 Mg PO DAILY Carvedilol 12.5 Mg Tablet 12.5 Mg PO BID Furosemide 40 Mg Tablet 40 Mg PO DAILY Isosorbide Mononitrate ER (Isosorbide Mononitrate) 60 Mg Tab 60 Mg PO DAILY Hydralazine HCl 25 Mg Tablet 25 Mg PO TID Reported Carvedilol 3.125 Mg Tablet 12.5 Mg PO BID TAKES 4 (3.125MG) TABS Assessment/Pt Instructions [facility] as PCP Discharge Planning: <30 minutes discharge planning Discharge Instructions Discharge Diet: No Restrictions Activity as Tolerated: Yes Discharge Physical Examination Vital Signs Vital Signs Date Time Temp Pulse Resp B/P (MAP) Pulse Ox O2 Delivery O2 Flow Rate FiO2 01/17/22 15:40 36.2 80 13 121/81 (94) 99 Room Air 01/17/22 07:51 25.00 General Appearance: No Apparent Distress, WD/WN, Chronically ill, Obese Allergies: Coded Allergies: No Known Drug Allergies (Unverified , 09/18/21) Discharge Summary Date of Admission January 15, 2022 at 12:57 Date of Discharge Discharge Date: January 17, 2022 Admission Diagnosis Hypertensive urgency Discharge Diagnosis (1) Acute on chronic HFrEF (heart failure with reduced ejection fraction) Status: Acute Assessment & Plan: His chest x-ray at the time of admission was clear but his BNP was slightly elevated and he has symptoms consistent with decompensated heart failure. This was probably brought on by noncompliance with his medication. His symptoms now seem to be improved and his creatinine has stabilized following a couple of days of intravenous furosemide. He is not on NORRIS inhibitor, ARB or aldosterone antagonist due to his chronic kidney disease. I expressed to him the importance of medication compliance and following up with me in the office after discharge. From a cardiac standpoint, he can be discharged home. (2) Hypertensive urgency Status: Acute Assessment & Plan: As with the heart failure, I suspect this was due to medication noncompliance. His blood pressures have improved with resumption of his regular outpatient medication. (3) Cardiomyopathy Status: Acute Assessment & Plan: His ejection fraction has improved since his previous admission. Now his ejection fraction is above the cutoff for recommending a LifeVest. At some point, we will need to consider an ischemic evaluation either with a nuclear stress test or directly to cardiac catheterization. This does not need to be done while he is in the hospital. He should continue the present guideline directed medical therapy. Qualifiers: Qualified Codes: I42.9 - Cardiomyopathy, unspecified (4) Primary hypertension Status: Acute Assessment & Plan: As above. (5) Acute kidney injury superimposed on chronic kidney disease Status: Acute Assessment & Plan: Baseline renal function is unknown. His creatinine has stabilized at 1.9. This is most likely his baseline. (6) Morbid obesity Status: Chronic Assessment & Plan: He needs to work on weight loss. MILA WALLACE DO January 17, 2022 16:41
== END 2022-01-17 18:50 | disposition home or self-care (01) | DRG 291 ==
LOC: EDUNIT# 03:59 → ER 04:02 → CSD 05:21 → OBSVTOIN 12:57
PROVIDERS: ADMIT Family Medicine; ATTEND Internal Medicine
PROC: 5A09357 Assistance with Respiratory Ventilation, Less than 24 Consecutive Hours, Continuous Positive Airway Pressure (ICD-10-PCS; principal; 2022-01-16)
DX: I13.0 Hypertensive heart and chronic kidney disease with heart failure and stage 1 through stage 4 chronic kidney disease, or unspecified chronic kidney disease (principal); I50.23 Acute on chronic systolic (congestive) heart failure; Z68.41 Body mass index [BMI] 40.0-44.9, adult; N18.32 Chronic kidney disease, stage 3b; I42.9 Cardiomyopathy, unspecified; I16.0 Hypertensive urgency; E66.01 Morbid (severe) obesity due to excess calories; Z91.14 Patient's other noncompliance with medication regimen; Z59.01 Sheltered homelessness; Z87.891 Personal history of nicotine dependence
CPT/HCPCS: 36415; 71045; 80048; 80053; 80061; 80306; 81000; 83735; 83874; 83880; 84100; 84484; 85025; 85610; 85730; 93005; 93041; 93306; 94660